=== PATIENT | male | born 1970 | race Caucasian/White ===

== ENCOUNTER 2018-04-05 15:09 | Inpatient (IN) | payer SELFPAY ==
[~2018-04-05] VITALS: Ht 177.8 cm; Wt 114.4 kg
[~2018-04-05 15:09] MED LIST: HYDR-2761 PO
[2018-04-05] MEDS ORDERED: VANCOMYCIN PER PHARMACY MC PRN (15:30)
[2018-04-05] MEDS ORDERED: IPRATRPIUM/ALBUTEROL 0.5/2.5MG 3 ML NEBU. NEB ONE (15:30)
[2018-04-05] MEDS ORDERED: PIP/TAZO PER PHARMACY MC PRN (15:30)
--- NOTE | 2018-04-05 15:30 | EKG ---
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
[2018-04-05] MEDS ORDERED: PIPERACILLIN/TAZOBACTAM 4.5 GM in IV NORMAL SALINE 100ML 100 ML IV ONE (15:45)
[2018-04-05] MEDS ORDERED: VANCOMYCIN 2 GM in IV NORMAL SALINE 500ML BAG 500 ML IV ONE (16:00)
--- NOTE | 2018-04-05 16:02 | RAD ---
PORTABLE CHEST 1V Clinical indications: Shortness of breath. COMPARISON: None available. Findings: There is a right upper lobe lung nodule. No lung consolidation or pleural effusion or pulmonary edema or pneumothorax is seen. The heart size, pulmonary vasculature, mediastinum and both samara are unremarkable. Impression: No acute radiographic abnormality is seen. Right upper lobe lung nodule. Recommend outpatient chest CT with IV contrast for further evaluation. Electronically signed by: Feng Marion MD (04/05/2018 3:57 PM) [id number]
[2018-04-05 16:05] LABS: BASO % 1 % (0-3); EOS % 1 % (0-3); LYMPH # 1.1 x10^3/uL (1.0-4.8); LYMPH % 24 % (24-48); MEAN CORPUSCULAR HEMOGLOBIN 32 pg (25-35); MEAN CORPUSCULAR HGB CONC 35 g/dL (31-37); MEAN CORPUSCULAR VOLUME 91 fL (79-100); MONO # 0.4 x10^3/uL (0.0-1.1); MONO % 10 % (0-9); NEUT # 2.9 x10^3uL (1.8-7.7); NEUT % 65 % (31-73); PLATELET COUNT 216 x10^3/uL (140-400); RED BLOOD COUNT 4.38 x10^6/uL (4.30-5.70); RED CELL DISTRIBUTION WIDTH 14.3 % (11.5-14.5); WHITE BLOOD COUNT 4.5 x10^3/uL (4.0-11.0)
--- NOTE | 2018-04-05 16:06 | PHYS DOC ---
Past Medical History Past Medical History: COPD, CVA, Hypertension, MS, Pneumonia Past Surgical History: Cholecystectomy Additional Information: 03/30 ppd Alcohol Use: None Drug Use: None Adult General Chief Complaint Chief Complaint: DYSPNEA/RESPIRATOY DISTRESS HPI HPI Patient is a 47 year old male presents the emergency room brought in by embolus with shortness of breath and coughing he was just in the hospital in [facility] for 2 weeks for pneumonia he finishes azithromycin he has been feeling worse subjective fevers at home. Shortness of breath is slowly worsening with exertion as well. Patient also has a history of a heart attack bypass surgery Review of Systems Review of Systems Constitutional: Denies fever or chills [] Eyes: Denies change in visual acuity, redness, or eye pain [] HENT: Denies nasal congestion or sore throat [] Respiratory: Denies cough or shortness of breath [] Cardiovascular: No additional information not addressed in HPI [] GI: Denies abdominal pain, nausea, vomiting, bloody stools or diarrhea [] : Denies dysuria or hematuria [] Musculoskeletal: Denies back pain or joint pain [] Integument: Denies rash or skin lesions [] Neurologic: Denies headache, focal weakness or sensory changes [] Endocrine: Denies polyuria or polydipsia [] All other systems were reviewed and found to be within normal limits, except as documented in this note. Current Medications Current Medications Current Medications Medications (Trade) Dose Ordered Sig/Narinder Start Time Stop Time Status Last Admin Dose Admin Albuterol/ Ipratropium (Duoneb) 3 ml RTQID 04/05/18 20:00 04/06/18 19:59 Furosemide (Lasix) 20 mg 1X ONCE 04/05/18 16:45 04/05/18 16:46 DC 04/05/18 16:55 20 MG Piperacillin Sod/ Tazobactam Sod (Zosyn Per Pharmacy) 1 each PRN DAILY PRN 04/05/18 15:30 Piperacillin Sod/ Tazobactam Sod 4.5 gm/Sodium Chloride 100 ml @ 200 mls/hr Q6HRS 04/06/18 00:00 Vancomycin HCl (Vanco Per Pharmacy) 1 each PRN DAILY PRN 04/05/18 15:30 04/05/18 17:10 1 EACH Vancomycin HCl (Vancomycin Trough Level) 1 each 1X ONCE 04/06/18 16:30 04/06/18 16:31 Vancomycin HCl 1.5 gm/Sodium Chloride 500 ml @ 250 mls/hr Q8H 04/06/18 01:00 Vancomycin HCl 2 gm/Sodium Chloride 500 ml @ 250 mls/hr 1X ONCE 04/05/18 16:00 04/05/18 17:59 04/05/18 16:49 250 MLS/HR Allergies Allergies Allergies Coded Allergies Type Severity Reaction Last Updated Verified No Known Drug Allergies 09/29/15 No Physical Exam Physical Exam Constitutional: Well developed, well nourished, mild distress, non-toxic appearance. [] HENT: Normocephalic, atraumatic, bilateral external ears normal, oropharynx moist, no oral exudates, nose normal. [] Eyes: PERRLA, EOMI, conjunctiva normal, no discharge. [] Neck: Normal range of motion, no tenderness, supple, no stridor. [] Cardiovascular:no dfeinite murmur difficult due to respiratory status. Lungs & Thorax: diffuse wheezing noted b/l mild t moderate increase in resp effort Abdomen: Bowel sounds normal, soft, no tenderness, no masses, no pulsatile masses. [] Skin: Erythema noted bilateral legs Back: No tenderness, no CVA tenderness. [] Extremities: No tenderness, no cyanosis, no clubbing, ROM intact,2plus edema noted. Neurologic: Alert and oriented X 3, normal motor function, normal sensory function, no focal deficits noted. [] Psychologic: Affect normal, judgement normal, mood Current Patient Data Vital Signs Vital Signs Date Time Temp Pulse Resp B/P (MAP) Pulse Ox O2 Delivery O2 Flow Rate FiO2 04/05/18 15:40 Room Air 04/05/18 15:09 98.9 102 28 142/71 (94) 98 98.9 Lab Values Laboratory Tests Test 04/05/18 15:45 04/05/18 15:50 04/05/18 16:25 White Blood Count 4.5 x10^3/uL (4.0-11.0) Red Blood Count 4.38 x10^6/uL (4.30-5.70) Hemoglobin 14.0 g/dL (13.0-17.5) Hematocrit 40.0 % (39.0-53.0) Mean Corpuscular Volume 91 fL (79-100) Mean Corpuscular Hemoglobin 32 pg (25-35) Mean Corpuscular Hemoglobin Concent 35 g/dL (31-37) Red Cell Distribution Width 14.3 % (11.5-14.5) Platelet Count 216 x10^3/uL (140-400) Neutrophils (%) (Auto) 65 % (31-73) Lymphocytes (%) (Auto) 24 % (24-48) Monocytes (%) (Auto) 10 % (0-9) H Eosinophils (%) (Auto) 1 % (0-3) Basophils (%) (Auto) 1 % (0-3) Neutrophils # (Auto) 2.9 x10^3uL (1.8-7.7) Lymphocytes # (Auto) 1.1 x10^3/uL (1.0-4.8) Monocytes # (Auto) 0.4 x10^3/uL (0.0-1.1) Eosinophils # (Auto) 0.0 x10^3/uL (0.0-0.7) Basophils # (Auto) 0.0 x10^3/uL (0.0-0.2) Prothrombin Time 13.2 SEC (11.7-14.0) Prothrombin Time INR 1.0 (0.8-1.1) Lactic Acid Level 1.5 mmol/L (0.4-2.0) Influenza Type A Antigen Negative (NEGATIVE) Influenza Type B Antigen Negative (NEGATIVE) Sodium Level 138 mmol/L (136-145) Potassium Level 4.5 mmol/L (3.5-5.1) Chloride Level 101 mmol/L (98-107) Carbon Dioxide Level 30 mmol/L (21-32) Anion Gap 7 (6-14) Blood Urea Nitrogen 4 mg/dL (8-26) L Creatinine 0.8 mg/dL (0.7-1.3) Estimated GFR (Cockcroft-Gault) 104.1 BUN/Creatinine Ratio 5 (6-20) L Glucose Level 121 mg/dL (70-99) H Calcium Level 8.9 mg/dL (8.5-10.1) Total Bilirubin 0.2 mg/dL (0.2-1.0) Aspartate Amino Transferase (AST) 55 U/L (15-37) H Alanine Aminotransferase (ALT) 77 U/L (16-63) H Alkaline Phosphatase 100 U/L (46-116) Troponin I Quantitative 0.019 ng/mL (0.000-0.055) GN-Ldi-R-Type Natriuretic Peptide 46 pg/mL (0-124) Total Protein 7.6 g/dL (6.4-8.2) Albumin 3.0 g/dL (3.4-5.0) L Albumin/Globulin Ratio 0.7 (1.0-1.7) L Laboratory Tests 04/05/18 15:45 Laboratory Tests 04/05/18 16:25 EKG EKG []nsr rate 98 no acute ischemic cahgnes noted interp by me time of [place]. Radiology/Procedures Radiology/Procedures [] Impressions: Findings: There is a right upper lobe lung nodule. No lung consolidation or pleural effusion or pulmonary edema or pneumothorax is seen. The heart size, pulmonary vasculature, mediastinum and both samara are unremarkable. Impression: No acute radiographic abnormality is seen. Right upper lobe lung nodule. Recommend outpatient chest CT with IV contrast for further evaluation. Electronically signed by: Purnima Marion MD (04/05/2018 3:57 PM) [id number] DICTATED and SIGNED BY: PURNIMA MARION MD DATE: 04/05/18 1555 Course & Med Decision Making Course & Med Decision Making Pertinent Labs and Imaging studies reviewed. (See chart for details) 47 yo m copd exacerbation hx of copd, hx of chf prior mi smoker from [place] p/w cc of shortness of breath. Has diffuse wheezing on examination we did basic workup patient did report a recent history of hospitalization as well as pneumonia and so we did give some broad-spectrum mailbox upfront chest x-ray does not show definite pneumonia however given high clinical concern be given antibiotics we gave steroids and nebulizer we gave Lasix due to leg swelling we' ll admit him to the hospital service for further evaluation his oxygen is 88-89 on room air he is not on home oxygen at baseline he is stable now on nasal cannula in the mid 90s. d/w iza agree to admit Dragon Disclaimer Dragon Disclaimer This electronic medical record was generated, in whole or in part, using a voice recognition dictation system. Departure Departure Impression: Primary Impression: COPD exacerbation Disposition: ADMITTED INPATIENT Admitting Physician: Other Condition: STABLE Referrals: NO PCP (PCP) KARTIK GRAYSON MD Apr 05, 2018 16:06
[2018-04-05 16:14] LABS: PROTHROMBIN TIME PATIENT 13.2 SEC (11.7-14.0)
[2018-04-05 16:34] LABS: INFLUENZA A PATIENT NEGATIVE (NEGATIVE); INFLUENZA B PATIENT NEGATIVE (NEGATIVE)
[2018-04-05] MEDS ORDERED: FUROSEMIDE 20 MG/2 ML VIAL. IVP ONE (16:45)
[2018-04-05 16:52] LABS: CALCIUM 8.9 mg/dL (8.5-10.1); CREATININE 0.8 mg/dL (0.7-1.3); GFR 104.1; POTASSIUM 4.5 mmol/L (3.5-5.1)
[2018-04-05 16:58] LABS: ALBUMIN/GLOBULIN RATIO 0.7 (1.0-1.7); TOTAL BILIRUBIN 0.2 mg/dL (0.2-1.0); TOTAL PROTEIN 7.6 g/dL (6.4-8.2)
--- NOTE | 2018-04-05 17:12 | NUR ---
Pharmacy Vancomycin Dosing Note S:Consulted to monitor and dose vancomycin started 04/05/18. O:RICKY LOPEZ is a 47 year old M with Pneumonia Height: 5 feet, 11 inches Weight: 104.3 kg [place] Body Weight: 75.30 Adjusted Body Weight: 86.90 Dosing Weight: Actual Other Antibiotics: zosyn per rx LABS: Last BUN: 4 Last Creatinine: 0.8 Creatinine Clearance: >100 mL/min Last WBC: 4.5 Last Platelets: 216 Tmax (past 24 hours): 98.9 Microbiology: - I/O: - Drug Levels: Last level: on at Last dose given 04/05/18 at 1649 Vancomycin Dosing: Loading Dose: 2000 mg x1 Dosing Weight: Actual Target Trough: 15-20 A: Based on: Weight and renal function P: 1. Begin Vancomycin 1500 mg IV q8h 2. Follow up Trough level on 04/06/18 at 1630 3. Pharmacy will continue to monitor, follow and adjust therapy as needed. Faina Green Yana, 04/05/18 [id number]
[2018-04-05 18:17] LABS: BARBITURATES NEG (NEG); BENZODIAZEPINES NEG (NEG); CANNABINOIDS NEG (NEG); COCAINE NEG (NEG); METHADONE NEG (NEG); OPIATES NEG (NEG); PHENCYCLIDINE NEG (NEG)
[2018-04-05 18:18] LABS: AMPHETAMINE/METHAMPHETAMINE NEG (NEG)
[2018-04-05] MEDS: IPRATRPIUM/ALBUTEROL 0.5/2.5MG 3 ML NEBU. NEB SCH ×2 (18:22→18:59)
--- NOTE | 2018-04-05 18:39 | PDOC1 ---
History and Physical Date of Admission Date of Admission 04/05/2018 Identification/Chief Complaint Chief Complaint I couldn't breathe Problems: (1) COPD exacerbation Source Source: Chart review, Patient History of Present Illness History of Present Illness The patient is a 47-year-old gentleman with past medical history of coronary artery disease tobacco abuse and COPD who was recently admitted at a different institution for pneumonia more or less 2 weeks ago. Today he comes with a history of more or less 5 days of worsening dyspnea that he started at an exertion and it has progressively gotten worse to the point that now he is experiencing dyspnea at rest. Patient also refers subjective fevers and some chills at home. Patient denies sick contacts no pleurisy has been reported cough is productive of green sputum and no hemoptysis has been reported no weight loss and no nausea vomiting associated with the coughing. The patient is an active smoker of the present time counseling has been done less than 10 minutes. Patient is being admitted the request of the ER for further treatment of his COPD exacerbation. Past Medical History Cardiovascular: CAD Current Problem List Problem List Problems Medical Problems: (1) COPD exacerbation Status: Acute Current Medications Current Medications Current Medications Medications (Trade) Dose Ordered Sig/Narinder Start Time Stop Time Status Last Admin Dose Admin Albuterol/ Ipratropium (Duoneb) 3 ml RTQID 04/05/18 20:00 04/06/18 19:59 04/05/18 18:22 3 ML Furosemide (Lasix) 20 mg 1X ONCE 04/05/18 16:45 04/05/18 16:46 DC 04/05/18 16:55 20 MG Piperacillin Sod/ Tazobactam Sod (Zosyn Per Pharmacy) 1 each PRN DAILY PRN 04/05/18 15:30 Piperacillin Sod/ Tazobactam Sod 4.5 gm/Sodium Chloride 100 ml @ 200 mls/hr Q6HRS 04/06/18 00:00 Vancomycin HCl (Vanco Per Pharmacy) 1 each PRN DAILY PRN 04/05/18 15:30 04/05/18 17:10 1 EACH Vancomycin HCl (Vancomycin Trough Level) 1 each 1X ONCE 04/06/18 16:30 04/06/18 16:31 Vancomycin HCl 1.5 gm/Sodium Chloride 500 ml @ 250 mls/hr Q8H 04/06/18 01:00 Vancomycin HCl 2 gm/Sodium Chloride 500 ml @ 250 mls/hr 1X ONCE 04/05/18 16:00 04/05/18 17:59 DC 04/05/18 16:49 250 MLS/HR Allergies Allergies Allergies Coded Allergies Type Severity Reaction Last Updated Verified No Known Drug Allergies 09/29/15 No ROS Review of System CONSTITUTIONAL: No fever or chills EYES: No recent changes SKIN: No rash or itching CARDIOVASCULAR: No chest pain, syncope, palpitations, or edema RESPIRATORY: No SOB or cough GASTROINTESTINAL: No nausea, vomiting or abdominal pain NEUROLOGICAL: No headaches or weakness ENDOCRINE: No cold or heat intolerance GENITOURINARY: No urgency or frequency of urination MUSCULOSKELETAL: No back pain or joint pain LYMPHATICS: No enlarged lymph nodes PSYCHIATRIC: No anxiety or depression Physical Exam Physical Exam GEN.: No apparent distress. Alert and oriented. HEENT: Head is normocephalic, atraumatic NECK: Supple. LUNGS: shallow inspiratory effort, expiratory wheezes bilaterally, coarse breath sounds, mild accessory respiratory muscle use. HEART: RRR, S1, S2 present. Peripheral pulses intact ABDOMEN: Soft, nontender. Positive bowel sounds. EXTREMITIES: Without any cyanosis. NEUROLOGIC: Normal speech, normal tone PSYCHIATRIC: Normal affect, normal mood. SKIN: No ulcerations Vitals Vitals Vital Signs Date Time Temp Pulse Resp B/P (MAP) Pulse Ox O2 Delivery O2 Flow Rate FiO2 04/05/18 18:23 95 Nasal Cannula 2.0 04/05/18 17:11 108 44 174/88 (116) 04/05/18 15:09 98.9 98.9 Labs Labs Laboratory Tests Test 04/05/18 15:45 04/05/18 15:50 04/05/18 16:25 04/05/18 17:49 White Blood Count 4.5 x10^3/uL (4.0-11.0) Red Blood Count 4.38 x10^6/uL (4.30-5.70) Hemoglobin 14.0 g/dL (13.0-17.5) Hematocrit 40.0 % (39.0-53.0) Mean Corpuscular Volume 91 fL (79-100) Mean Corpuscular Hemoglobin 32 pg (25-35) Mean Corpuscular Hemoglobin Concent 35 g/dL (31-37) Red Cell Distribution Width 14.3 % (11.5-14.5) Platelet Count 216 x10^3/uL (140-400) Neutrophils (%) (Auto) 65 % (31-73) Lymphocytes (%) (Auto) 24 % (24-48) Monocytes (%) (Auto) 10 % (0-9) Eosinophils (%) (Auto) 1 % (0-3) Basophils (%) (Auto) 1 % (0-3) Neutrophils # (Auto) 2.9 x10^3uL (1.8-7.7) Lymphocytes # (Auto) 1.1 x10^3/uL (1.0-4.8) Monocytes # (Auto) 0.4 x10^3/uL (0.0-1.1) Eosinophils # (Auto) 0.0 x10^3/uL (0.0-0.7) Basophils # (Auto) 0.0 x10^3/uL (0.0-0.2) Prothrombin Time 13.2 SEC (11.7-14.0) Prothromb Time International Ratio 1.0 (0.8-1.1) Lactic Acid Level 1.5 mmol/L (0.4-2.0) Influenza Type A Antigen Negative (NEGATIVE) Influenza Type B Antigen Negative (NEGATIVE) Sodium Level 138 mmol/L (136-145) Potassium Level 4.5 mmol/L (3.5-5.1) Chloride Level 101 mmol/L (98-107) Carbon Dioxide Level 30 mmol/L (21-32) Anion Gap 7 (6-14) Blood Urea Nitrogen 4 mg/dL (8-26) Creatinine 0.8 mg/dL (0.7-1.3) Estimated GFR (Cockcroft-Gault) 104.1 BUN/Creatinine Ratio 5 (6-20) Glucose Level 121 mg/dL (70-99) Calcium Level 8.9 mg/dL (8.5-10.1) Total Bilirubin 0.2 mg/dL (0.2-1.0) Aspartate Amino Transf (AST/SGOT) 55 U/L (15-37) Alanine Aminotransferase (ALT/SGPT) 77 U/L (16-63) Alkaline Phosphatase 100 U/L (46-116) Troponin I Quantitative 0.019 ng/mL (0.000-0.055) GM-Nfw-G-Type Natriuretic Peptide 46 pg/mL (0-124) Total Protein 7.6 g/dL (6.4-8.2) Albumin 3.0 g/dL (3.4-5.0) Albumin/Globulin Ratio 0.7 (1.0-1.7) Urine Opiates Screen Neg (NEG) Urine Methadone Screen Neg (NEG) Urine Barbiturates Neg (NEG) Urine Phencyclidine Screen Neg (NEG) Urine Amphetamine/Methamphetamine Neg (NEG) Urine Benzodiazepines Screen Neg (NEG) Urine Cocaine Screen Neg (NEG) Urine Cannabinoids Screen Neg (NEG) Urine Ethyl Alcohol Neg (NEG) Laboratory Tests Test 04/05/18 15:45 04/05/18 15:50 04/05/18 16:25 04/05/18 17:49 White Blood Count 4.5 x10^3/uL (4.0-11.0) Red Blood Count 4.38 x10^6/uL (4.30-5.70) Hemoglobin 14.0 g/dL (13.0-17.5) Hematocrit 40.0 % (39.0-53.0) Mean Corpuscular Volume 91 fL (79-100) Mean Corpuscular Hemoglobin 32 pg (25-35) Mean Corpuscular Hemoglobin Concent 35 g/dL (31-37) Red Cell Distribution Width 14.3 % (11.5-14.5) Platelet Count 216 x10^3/uL (140-400) Neutrophils (%) (Auto) 65 % (31-73) Lymphocytes (%) (Auto) 24 % (24-48) Monocytes (%) (Auto) 10 % (0-9) Eosinophils (%) (Auto) 1 % (0-3) Basophils (%) (Auto) 1 % (0-3) Neutrophils # (Auto) 2.9 x10^3uL (1.8-7.7) Lymphocytes # (Auto) 1.1 x10^3/uL (1.0-4.8) Monocytes # (Auto) 0.4 x10^3/uL (0.0-1.1) Eosinophils # (Auto) 0.0 x10^3/uL (0.0-0.7) Basophils # (Auto) 0.0 x10^3/uL (0.0-0.2) Prothrombin Time 13.2 SEC (11.7-14.0) Prothromb Time International Ratio 1.0 (0.8-1.1) Lactic Acid Level 1.5 mmol/L (0.4-2.0) Influenza Type A Antigen Negative (NEGATIVE) Influenza Type B Antigen Negative (NEGATIVE) Sodium Level 138 mmol/L (136-145) Potassium Level 4.5 mmol/L (3.5-5.1) Chloride Level 101 mmol/L (98-107) Carbon Dioxide Level 30 mmol/L (21-32) Anion Gap 7 (6-14) Blood Urea Nitrogen 4 mg/dL (8-26) Creatinine 0.8 mg/dL (0.7-1.3) Estimated GFR (Cockcroft-Gault) 104.1 BUN/Creatinine Ratio 5 (6-20) Glucose Level 121 mg/dL (70-99) Calcium Level 8.9 mg/dL (8.5-10.1) Total Bilirubin 0.2 mg/dL (0.2-1.0) Aspartate Amino Transf (AST/SGOT) 55 U/L (15-37) Alanine Aminotransferase (ALT/SGPT) 77 U/L (16-63) Alkaline Phosphatase 100 U/L (46-116) Troponin I Quantitative 0.019 ng/mL (0.000-0.055) WJ-Zml-X-Type Natriuretic Peptide 46 pg/mL (0-124) Total Protein 7.6 g/dL (6.4-8.2) Albumin 3.0 g/dL (3.4-5.0) Albumin/Globulin Ratio 0.7 (1.0-1.7) Urine Opiates Screen Neg (NEG) Urine Methadone Screen Neg (NEG) Urine Barbiturates Neg (NEG) Urine Phencyclidine Screen Neg (NEG) Urine Amphetamine/Methamphetamine Neg (NEG) Urine Benzodiazepines Screen Neg (NEG) Urine Cocaine Screen Neg (NEG) Urine Cannabinoids Screen Neg (NEG) Urine Ethyl Alcohol Neg (NEG) Images Images PATIENT: RICKY LOPEZ ACCOUNT: [id number] : 1970 LOCATION: ER AGE: 47 SEX: M EXAM STATUS: PRE ER ORD. PHYSICIAN: KARTIK GRAYSON MD REASON: sob PROCEDURE: PORTABLE CHEST 1V PORTABLE CHEST 1V Clinical indications: Shortness of breath. COMPARISON: None available. Findings: There is a right upper lobe lung nodule. No lung consolidation or pleural effusion or pulmonary edema or pneumothorax is seen. The heart size, pulmonary vasculature, mediastinum and both samara are unremarkable. Impression: No acute radiographic abnormality is seen. Right upper lobe lung nodule. Recommend outpatient chest CT with IV contrast for further evaluation. Electronically signed by: Purnima Marion MD (04/05/2018 3:57 PM) [id number] DICTATED and SIGNED BY: PURNIMA MARION MD DATE: 04/05/18 1555 VTE Prophylaxis Ordered VTE Prophylaxis Devices: Yes VTE Pharmacological Prophylaxi: Yes Assessment/Plan Assessment/Plan * Acute COPD exacerbation * right upper lobe lung nodule * History of CAD as per report * Tobacco abuse, counseling done less than 10 minutes. * COPD * Obesity Plan: admit to medical floor start solumedrol doxycycline po nebulization therapy resume home meds nicotine patch reassess in the am further recommendations based on clinical course. DVT prophylaxis: NENITA Torres MD Apr 05, 2018 18:39
[2018-04-05] MEDS ORDERED: ONDANSETRON PF 4 MG/2 ML VIAL. IV PRN (18:45)
[2018-04-05] MEDS ORDERED: ACETAMINOPHEN 325 MG TABLET. PO PRN (18:45)
[2018-04-05] MEDS ORDERED: ALBUTEROL SULFATE 2.5 MG/3 ML NEBU. NEB PRN (18:45)
[2018-04-05] MEDS ORDERED: KETOROLAC 15 MG/ML VIAL. IV PRN (18:45)
[2018-04-05] MEDS ORDERED: ELECTROLYTE (NON-ICU) PROTOCOL MC PRN (18:45)
[2018-04-05] MEDS ORDERED: ENOXAPARIN 40 MG/0.4 ML SYRINGE. SQ SCH (18:45)
[2018-04-05] MEDS ORDERED: LACTULOSE 20 GM/30 ML SOLUTION. PO PRN (18:45)
[2018-04-05] MEDS ORDERED: BISACODYL 10 MG SUPP.RECT. PR PRN (18:45)
--- NOTE | 2018-04-05 19:30 | NUR ---
The patient, RICKY LOPEZ, 47 y/o, M admitted by NENITA LONGO MD, was given written information regarding hospital policies, unit procedures and contact persons. Valuables were checked and left with him.
[2018-04-05 20:12] VITALS: BP 154/91
[2018-04-05] MEDS: SENNOSIDES/DOCUSATE 8.6/50MG TABLET. PO SCH (21:55)
[2018-04-05] MEDS: methylPREDNISolone SOD SUCC PF 40 MG/ML VIAL. IV SCH (21:56)
[2018-04-05 23:00] VITALS: BP 149/90
[2018-04-06] MEDS ORDERED: PIPERACILLIN/TAZOBACTAM 4.5 GM in IV NORMAL SALINE 100ML 100 ML IV SCH ×2
[2018-04-06] MEDS ORDERED: VANCOMYCIN 1.5 GM in IV NORMAL SALINE 500ML BAG 500 ML IV SCH (01:00)
[2018-04-06 03:02] VITALS: BP 140/81
[2018-04-06 03:51] LABS: BASO % 0 % (0-3); EOS % 0 % (0-3); HEMATOCRIT 44.8 % (39.0-53.0); HEMOGLOBIN 15.5 g/dL (13.0-17.5); LYMPH # 0.4 x10^3/uL (1.0-4.8); LYMPH % 9 % (24-48); MEAN CORPUSCULAR HEMOGLOBIN 32 pg (25-35); MEAN CORPUSCULAR HGB CONC 35 g/dL (31-37); MEAN CORPUSCULAR VOLUME 92 fL (79-100); MONO # 0.1 x10^3/uL (0.0-1.1); MONO % 2 % (0-9); NEUT # 4.3 x10^3uL (1.8-7.7); NEUT % 89 % (31-73); PLATELET COUNT 220 x10^3/uL (140-400); RED BLOOD COUNT 4.88 x10^6/uL (4.30-5.70); RED CELL DISTRIBUTION WIDTH 14.5 % (11.5-14.5); WHITE BLOOD COUNT 4.8 x10^3/uL (4.0-11.0)
[2018-04-06 04:33] LABS: CALCIUM 9.2 mg/dL (8.5-10.1); CREATININE 0.9 mg/dL (0.7-1.3); GFR 90.8; MAGNESIUM 2.2 mg/dL (1.8-2.4); POTASSIUM 4.6 mmol/L (3.5-5.1)
[2018-04-06] MEDS: methylPREDNISolone SOD SUCC PF 40 MG/ML VIAL. IV SCH ×3 (05:45→20:39)
[2018-04-06] MEDS: IPRATRPIUM/ALBUTEROL 0.5/2.5MG 3 ML NEBU. NEB SCH ×7 (06:10→22:00)
[2018-04-06 07:00] VITALS: BP 127/80
[2018-04-06] MEDS: DOXYCYCLINE HYCLATE 100 MG TABLET PO SCH ×2 (07:40→16:55)
[2018-04-06 07:47] LABS: % BANDS 4 % (0-9); % LYMPHS 5 % (24-48); % MONOS 3 % (0-10); % SEGS 88 % (35-66); PLT ESTIMATE ADEQUATE (ADEQUATE)
[2018-04-06] MEDS: SENNOSIDES/DOCUSATE 8.6/50MG TABLET. PO SCH ×2 (08:42→20:39)
[2018-04-06] MEDS: NICOTINE 21MG PATCH. TD SCH (08:42)
[2018-04-06] MEDS ORDERED: ONDANSETRON PF 4 MG/2 ML VIAL. IV PRN (08:45)
[2018-04-06] MEDS ORDERED: ONDANSETRON ODT 4 MG TAB.RAPDIS. PO PRN (08:45)
[2018-04-06] MEDS ORDERED: guaiFENesin DM 200MG/20MG 10 ML SYRUP PO PRN (08:45)
[2018-04-06] MEDS ORDERED: ACETAMINOPHEN 500 MG TABLET PO PRN (08:45)
[2018-04-06] MEDS ORDERED: HYDROcodone/APAP 5/325MG 1 TAB TABLET PO PRN (09:00)
[2018-04-06] MEDS ORDERED: NICOTINE 21MG PATCH. TD PRN (09:00)
--- NOTE | 2018-04-06 09:36 | NUR ---
SW following pt for anticipated dc needs. Chart reviewed. Pt lives at home alone and is self pay. Pt is currently on 2L oxygen. SW will continue to follow pt for dc needs.
--- NOTE | 2018-04-06 10:32 | PDOC ---
PROGRESS NOTES Chief Complaint Chief Complaint * Acute COPD exacerbation * right upper lobe lung nodule in a heavy smoker * History of CAD as per report * Tobacco abuse, counseling done less than 10 minutes. * COPD * Obesity History of Present Illness History of Present Illness wheezy Not on oxygen at home [id number] afford inhalers Not on any inhalers at home Chest x-ray is negative for pneumatic process but there is a right upper lung nodule which is news to him At least [id number] smoking history Plan: I did consult pulmonary given lung nodule CT chest to further evaluate that lung nodule in a heavy smoker Smoking cessation Nicotine patch Continue DuoNeb's add Robitussin Increase solu to 60 IV every 8hrs since wheezing On doxy PO by colleague - agree Not ready for DC Vitals Vitals Vital Signs Date Time Temp Pulse Resp B/P (MAP) Pulse Ox O2 Delivery O2 Flow Rate FiO2 04/06/18 08:00 Nasal Cannula 3.0 04/06/18 07:00 97.5 91 20 127/80 (96) 91 97.5 Physical Exam General: Alert, Oriented X3, Cooperative, No acute distress Heart: No murmurs Lungs: Wheezing Abdomen: Normal bowel sounds, Soft, No tenderness Extremities: No clubbing, No cyanosis, No edema Skin: No rashes, No breakdown, No significant lesion Labs LABS Laboratory Tests Test 04/05/18 15:45 04/05/18 15:50 04/05/18 16:25 04/05/18 17:49 White Blood Count 4.5 x10^3/uL (4.0-11.0) Red Blood Count 4.38 x10^6/uL (4.30-5.70) Hemoglobin 14.0 g/dL (13.0-17.5) Hematocrit 40.0 % (39.0-53.0) Mean Corpuscular Volume 91 fL (79-100) Mean Corpuscular Hemoglobin 32 pg (25-35) Mean Corpuscular Hemoglobin Concent 35 g/dL (31-37) Red Cell Distribution Width 14.3 % (11.5-14.5) Platelet Count 216 x10^3/uL (140-400) Neutrophils (%) (Auto) 65 % (31-73) Lymphocytes (%) (Auto) 24 % (24-48) Monocytes (%) (Auto) 10 % (0-9) Eosinophils (%) (Auto) 1 % (0-3) Basophils (%) (Auto) 1 % (0-3) Neutrophils # (Auto) 2.9 x10^3uL (1.8-7.7) Lymphocytes # (Auto) 1.1 x10^3/uL (1.0-4.8) Monocytes # (Auto) 0.4 x10^3/uL (0.0-1.1) Eosinophils # (Auto) 0.0 x10^3/uL (0.0-0.7) Basophils # (Auto) 0.0 x10^3/uL (0.0-0.2) Prothrombin Time 13.2 SEC (11.7-14.0) Prothromb Time International Ratio 1.0 (0.8-1.1) Lactic Acid Level 1.5 mmol/L (0.4-2.0) Influenza Type A Antigen Negative (NEGATIVE) Influenza Type B Antigen Negative (NEGATIVE) Sodium Level 138 mmol/L (136-145) Potassium Level 4.5 mmol/L (3.5-5.1) Chloride Level 101 mmol/L (98-107) Carbon Dioxide Level 30 mmol/L (21-32) Anion Gap 7 (6-14) Blood Urea Nitrogen 4 mg/dL (8-26) Creatinine 0.8 mg/dL (0.7-1.3) Estimated GFR (Cockcroft-Gault) 104.1 BUN/Creatinine Ratio 5 (6-20) Glucose Level 121 mg/dL (70-99) Calcium Level 8.9 mg/dL (8.5-10.1) Total Bilirubin 0.2 mg/dL (0.2-1.0) Aspartate Amino Transf (AST/SGOT) 55 U/L (15-37) Alanine Aminotransferase (ALT/SGPT) 77 U/L (16-63) Alkaline Phosphatase 100 U/L (46-116) Troponin I Quantitative 0.019 ng/mL (0.000-0.055) QH-Wvp-F-Type Natriuretic Peptide 46 pg/mL (0-124) Total Protein 7.6 g/dL (6.4-8.2) Albumin 3.0 g/dL (3.4-5.0) Albumin/Globulin Ratio 0.7 (1.0-1.7) Urine Opiates Screen Neg (NEG) Urine Methadone Screen Neg (NEG) Urine Barbiturates Neg (NEG) Urine Phencyclidine Screen Neg (NEG) Urine Amphetamine/Methamphetamine Neg (NEG) Urine Benzodiazepines Screen Neg (NEG) Urine Cocaine Screen Neg (NEG) Urine Cannabinoids Screen Neg (NEG) Urine Ethyl Alcohol Neg (NEG) Test 04/06/18 03:05 White Blood Count 4.8 x10^3/uL (4.0-11.0) Red Blood Count 4.88 x10^6/uL (4.30-5.70) Hemoglobin 15.5 g/dL (13.0-17.5) Hematocrit 44.8 % (39.0-53.0) Mean Corpuscular Volume 92 fL (79-100) Mean Corpuscular Hemoglobin 32 pg (25-35) Mean Corpuscular Hemoglobin Concent 35 g/dL (31-37) Red Cell Distribution Width 14.5 % (11.5-14.5) Platelet Count 220 x10^3/uL (140-400) Neutrophils (%) (Auto) 89 % (31-73) Lymphocytes (%) (Auto) 9 % (24-48) Monocytes (%) (Auto) 2 % (0-9) Eosinophils (%) (Auto) 0 % (0-3) Basophils (%) (Auto) 0 % (0-3) Neutrophils # (Auto) 4.3 x10^3uL (1.8-7.7) Lymphocytes # (Auto) 0.4 x10^3/uL (1.0-4.8) Monocytes # (Auto) 0.1 x10^3/uL (0.0-1.1) Eosinophils # (Auto) 0.0 x10^3/uL (0.0-0.7) Basophils # (Auto) 0.0 x10^3/uL (0.0-0.2) Segmented Neutrophils % 88 % (35-66) Band Neutrophils % 4 % (0-9) Lymphocytes % 5 % (24-48) Monocytes % 3 % (0-10) Platelet Estimate Adequate (ADEQUATE) Sodium Level 137 mmol/L (136-145) Potassium Level 4.6 mmol/L (3.5-5.1) Chloride Level 99 mmol/L (98-107) Carbon Dioxide Level 31 mmol/L (21-32) Anion Gap 7 (6-14) Blood Urea Nitrogen 7 mg/dL (8-26) Creatinine 0.9 mg/dL (0.7-1.3) Estimated GFR (Cockcroft-Gault) 90.8 Glucose Level 206 mg/dL (70-99) Calcium Level 9.2 mg/dL (8.5-10.1) Magnesium Level 2.2 mg/dL (1.8-2.4) Review of Systems Review of Systems wheezy, cough, SOA on long distances, no chest pain, no fever Assessment and Plan Assessmemt and Plan Problems Medical Problems: (1) COPD exacerbation Status: Acute Comment Review of Relevant I have reviewed the following items anh (where applicable) has been applied. Labs Laboratory Tests Test 04/05/18 15:45 04/05/18 15:50 04/05/18 16:25 04/05/18 17:49 White Blood Count 4.5 x10^3/uL (4.0-11.0) Red Blood Count 4.38 x10^6/uL (4.30-5.70) Hemoglobin 14.0 g/dL (13.0-17.5) Hematocrit 40.0 % (39.0-53.0) Mean Corpuscular Volume 91 fL (79-100) Mean Corpuscular Hemoglobin 32 pg (25-35) Mean Corpuscular Hemoglobin Concent 35 g/dL (31-37) Red Cell Distribution Width 14.3 % (11.5-14.5) Platelet Count 216 x10^3/uL (140-400) Neutrophils (%) (Auto) 65 % (31-73) Lymphocytes (%) (Auto) 24 % (24-48) Monocytes (%) (Auto) 10 % (0-9) Eosinophils (%) (Auto) 1 % (0-3) Basophils (%) (Auto) 1 % (0-3) Neutrophils # (Auto) 2.9 x10^3uL (1.8-7.7) Lymphocytes # (Auto) 1.1 x10^3/uL (1.0-4.8) Monocytes # (Auto) 0.4 x10^3/uL (0.0-1.1) Eosinophils # (Auto) 0.0 x10^3/uL (0.0-0.7) Basophils # (Auto) 0.0 x10^3/uL (0.0-0.2) Prothrombin Time 13.2 SEC (11.7-14.0) Prothromb Time International Ratio 1.0 (0.8-1.1) Lactic Acid Level 1.5 mmol/L (0.4-2.0) Influenza Type A Antigen Negative (NEGATIVE) Influenza Type B Antigen Negative (NEGATIVE) Sodium Level 138 mmol/L (136-145) Potassium Level 4.5 mmol/L (3.5-5.1) Chloride Level 101 mmol/L (98-107) Carbon Dioxide Level 30 mmol/L (21-32) Anion Gap 7 (6-14) Blood Urea Nitrogen 4 mg/dL (8-26) Creatinine 0.8 mg/dL (0.7-1.3) Estimated GFR (Cockcroft-Gault) 104.1 BUN/Creatinine Ratio 5 (6-20) Glucose Level 121 mg/dL (70-99) Calcium Level 8.9 mg/dL (8.5-10.1) Total Bilirubin 0.2 mg/dL (0.2-1.0) Aspartate Amino Transf (AST/SGOT) 55 U/L (15-37) Alanine Aminotransferase (ALT/SGPT) 77 U/L (16-63) Alkaline Phosphatase 100 U/L (46-116) Troponin I Quantitative 0.019 ng/mL (0.000-0.055) HE-Pxm-C-Type Natriuretic Peptide 46 pg/mL (0-124) Total Protein 7.6 g/dL (6.4-8.2) Albumin 3.0 g/dL (3.4-5.0) Albumin/Globulin Ratio 0.7 (1.0-1.7) Urine Opiates Screen Neg (NEG) Urine Methadone Screen Neg (NEG) Urine Barbiturates Neg (NEG) Urine Phencyclidine Screen Neg (NEG) Urine Amphetamine/Methamphetamine Neg (NEG) Urine Benzodiazepines Screen Neg (NEG) Urine Cocaine Screen Neg (NEG) Urine Cannabinoids Screen Neg (NEG) Urine Ethyl Alcohol Neg (NEG) Test 04/06/18 03:05 White Blood Count 4.8 x10^3/uL (4.0-11.0) Red Blood Count 4.88 x10^6/uL (4.30-5.70) Hemoglobin 15.5 g/dL (13.0-17.5) Hematocrit 44.8 % (39.0-53.0) Mean Corpuscular Volume 92 fL (79-100) Mean Corpuscular Hemoglobin 32 pg (25-35) Mean Corpuscular Hemoglobin Concent 35 g/dL (31-37) Red Cell Distribution Width 14.5 % (11.5-14.5) Platelet Count 220 x10^3/uL (140-400) Neutrophils (%) (Auto) 89 % (31-73) Lymphocytes (%) (Auto) 9 % (24-48) Monocytes (%) (Auto) 2 % (0-9) Eosinophils (%) (Auto) 0 % (0-3) Basophils (%) (Auto) 0 % (0-3) Neutrophils # (Auto) 4.3 x10^3uL (1.8-7.7) Lymphocytes # (Auto) 0.4 x10^3/uL (1.0-4.8) Monocytes # (Auto) 0.1 x10^3/uL (0.0-1.1) Eosinophils # (Auto) 0.0 x10^3/uL (0.0-0.7) Basophils # (Auto) 0.0 x10^3/uL (0.0-0.2) Segmented Neutrophils % 88 % (35-66) Band Neutrophils % 4 % (0-9) Lymphocytes % 5 % (24-48) Monocytes % 3 % (0-10) Platelet Estimate Adequate (ADEQUATE) Sodium Level 137 mmol/L (136-145) Potassium Level 4.6 mmol/L (3.5-5.1) Chloride Level 99 mmol/L (98-107) Carbon Dioxide Level 31 mmol/L (21-32) Anion Gap 7 (6-14) Blood Urea Nitrogen 7 mg/dL (8-26) Creatinine 0.9 mg/dL (0.7-1.3) Estimated GFR (Cockcroft-Gault) 90.8 Glucose Level 206 mg/dL (70-99) Calcium Level 9.2 mg/dL (8.5-10.1) Magnesium Level 2.2 mg/dL (1.8-2.4) Laboratory Tests Test 04/05/18 15:45 04/05/18 15:50 1/8/19 16:25 04/05/18 17:49 White Blood Count 4.5 x10^3/uL (4.0-11.0) Red Blood Count 4.38 x10^6/uL (4.30-5.70) Hemoglobin 14.0 g/dL (13.0-17.5) Hematocrit 40.0 % (39.0-53.0) Mean Corpuscular Volume 91 fL (79-100) Mean Corpuscular Hemoglobin 32 pg (25-35) Mean Corpuscular Hemoglobin Concent 35 g/dL (31-37) Red Cell Distribution Width 14.3 % (11.5-14.5) Platelet Count 216 x10^3/uL (140-400) Neutrophils (%) (Auto) 65 % (31-73) Lymphocytes (%) (Auto) 24 % (24-48) Monocytes (%) (Auto) 10 % (0-9) Eosinophils (%) (Auto) 1 % (0-3) Basophils (%) (Auto) 1 % (0-3) Neutrophils # (Auto) 2.9 x10^3uL (1.8-7.7) Lymphocytes # (Auto) 1.1 x10^3/uL (1.0-4.8) Monocytes # (Auto) 0.4 x10^3/uL (0.0-1.1) Eosinophils # (Auto) 0.0 x10^3/uL (0.0-0.7) Basophils # (Auto) 0.0 x10^3/uL (0.0-0.2) Prothrombin Time 13.2 SEC (11.7-14.0) Prothromb Time International Ratio 1.0 (0.8-1.1) Lactic Acid Level 1.5 mmol/L (0.4-2.0) Influenza Type A Antigen Negative (NEGATIVE) Influenza Type B Antigen Negative (NEGATIVE) Sodium Level 138 mmol/L (136-145) Potassium Level 4.5 mmol/L (3.5-5.1) Chloride Level 101 mmol/L (98-107) Carbon Dioxide Level 30 mmol/L (21-32) Anion Gap 7 (6-14) Blood Urea Nitrogen 4 mg/dL (8-26) Creatinine 0.8 mg/dL (0.7-1.3) Estimated GFR (Cockcroft-Gault) 104.1 BUN/Creatinine Ratio 5 (6-20) Glucose Level 121 mg/dL (70-99) Calcium Level 8.9 mg/dL (8.5-10.1) Total Bilirubin 0.2 mg/dL (0.2-1.0) Aspartate Amino Transf (AST/SGOT) 55 U/L (15-37) Alanine Aminotransferase (ALT/SGPT) 77 U/L (16-63) Alkaline Phosphatase 100 U/L (46-116) Troponin I Quantitative 0.019 ng/mL (0.000-0.055) MC-Unv-D-Type Natriuretic Peptide 46 pg/mL (0-124) Total Protein 7.6 g/dL (6.4-8.2) Albumin 3.0 g/dL (3.4-5.0) Albumin/Globulin Ratio 0.7 (1.0-1.7) Urine Opiates Screen Neg (NEG) Urine Methadone Screen Neg (NEG) Urine Barbiturates Neg (NEG) Urine Phencyclidine Screen Neg (NEG) Urine Amphetamine/Methamphetamine Neg (NEG) Urine Benzodiazepines Screen Neg (NEG) Urine Cocaine Screen Neg (NEG) Urine Cannabinoids Screen Neg (NEG) Urine Ethyl Alcohol Neg (NEG) Test 04/06/18 03:05 White Blood Count 4.8 x10^3/uL (4.0-11.0) Red Blood Count 4.88 x10^6/uL (4.30-5.70) Hemoglobin 15.5 g/dL (13.0-17.5) Hematocrit 44.8 % (39.0-53.0) Mean Corpuscular Volume 92 fL (79-100) Mean Corpuscular Hemoglobin 32 pg (25-35) Mean Corpuscular Hemoglobin Concent 35 g/dL (31-37) Red Cell Distribution Width 14.5 % (11.5-14.5) Platelet Count 220 x10^3/uL (140-400) Neutrophils (%) (Auto) 89 % (31-73) Lymphocytes (%) (Auto) 9 % (24-48) Monocytes (%) (Auto) 2 % (0-9) Eosinophils (%) (Auto) 0 % (0-3) Basophils (%) (Auto) 0 % (0-3) Neutrophils # (Auto) 4.3 x10^3uL (1.8-7.7) Lymphocytes # (Auto) 0.4 x10^3/uL (1.0-4.8) Monocytes # (Auto) 0.1 x10^3/uL (0.0-1.1) Eosinophils # (Auto) 0.0 x10^3/uL (0.0-0.7) Basophils # (Auto) 0.0 x10^3/uL (0.0-0.2) Segmented Neutrophils % 88 % (35-66) Band Neutrophils % 4 % (0-9) Lymphocytes % 5 % (24-48) Monocytes % 3 % (0-10) Platelet Estimate Adequate (ADEQUATE) Sodium Level 137 mmol/L (136-145) Potassium Level 4.6 mmol/L (3.5-5.1) Chloride Level 99 mmol/L (98-107) Carbon Dioxide Level 31 mmol/L (21-32) Anion Gap 7 (6-14) Blood Urea Nitrogen 7 mg/dL (8-26) Creatinine 0.9 mg/dL (0.7-1.3) Estimated GFR (Cockcroft-Gault) 90.8 Glucose Level 206 mg/dL (70-99) Calcium Level 9.2 mg/dL (8.5-10.1) Magnesium Level 2.2 mg/dL (1.8-2.4) Medications Current Medications Albuterol/ Ipratropium (Duoneb) 3 ml 1X ONCE NEB Last administered on at 15:40; Start 04/05/18 at 15:30; Stop 04/05/18 at 15:31; Status DC Vancomycin HCl (Vanco Per Pharmacy) 1 each PRN DAILY PRN MC SEE COMMENTS Last administered on 04/05/18at 17:10; Start 04/05/18 at 15:30; Stop 04/05/18 at 19:13; Status DC Piperacillin Sod/ Tazobactam Sod (Zosyn Per Pharmacy) 1 each PRN DAILY PRN MC SEE COMMENTS; Start 04/05/18 at 15:30; Stop 04/05/18 at 18:44; Status DC Piperacillin Sod/ Tazobactam Sod 4.5 gm/Sodium Chloride 100 ml @ 200 mls/hr 1X ONCE IV Last administered on 04/05/18at 16:09; Start 04/05/18 at 15:45; Stop 04/05/18 at 16:14; Status DC Vancomycin HCl 2 gm/Sodium Chloride 500 ml @ 250 mls/hr 1X ONCE IV Last administered on 04/05/18at 16:49; Start 04/05/18 at 16:00; Stop 04/05/18 at 17:59; Status DC Furosemide (Lasix) 20 mg 1X ONCE IVP Last administered on 04/05/18at 16:55; Start 04/05/18 at 16:45; Stop 04/05/18 at 16:46; Status DC Piperacillin Sod/ Tazobactam Sod 4.5 gm/Sodium Chloride 100 ml @ 200 mls/hr Q6HRS IV ; Start 04/06/18 at 00:00; Stop 04/06/18 at 00:00; Status DC Vancomycin HCl 1.5 gm/Sodium Chloride 500 ml @ 250 mls/hr Q8H IV ; Start at 01:00; Stop 04/06/18 at 01:00; Status DC Vancomycin HCl (Vancomycin Trough Level) 1 each 1X ONCE MC ; Start 04/06/18 at 16:30; Stop 04/06/18 at 16:30; Status DC Albuterol/ Ipratropium (Duoneb) 3 ml RTQID NEB Last administered on 04/05/18at 18 :22; Start 04/05/18 at 20:00; Stop 04/06/18 at 19:59 Albuterol Sulfate (Ventolin Neb Soln) 2.5 mg PRN Q2HR PRN NEB SHORTNESS OF BREATH Last administered on 04/05/18at 22:01; Start 04/05/18 at 18:45 Albuterol/ Ipratropium (Duoneb) 3 ml Q4HRS W/A NEB Last administered on 06:10; Start 04/05/18 at 22:00 Nicotine (Nicoderm Cq 21mg) 1 patch DAILY TD Last administered on 04/06/18at 08: 42; Start 04/06/18 at 09:00 Doxycycline Hyclate (Vibra-Tab) 100 mg BIDBFRMEAL PO Last administered on at 07:40; Start 04/06/18 at 07:30 Methylprednisolone Sodium Succinate (SOLU-Medrol 40MG VIAL) 40 mg Q8HRS IV Last administered on 04/06/18at 05:45; Start 04/05/18 at 22:00 Ondansetron HCl (Zofran) 4 mg PRN Q6HRS PRN IV NAUSEA/VOMITING; Start 04/05/18 at 18:45 Info (Non-Icu Electrolyte Protocol) 1 ea PRN DAILY PRN MC SEE COMMENTS; Start 04/05/18 at 18:45 Ketorolac Tromethamine (Toradol 15mg Vial) 15 mg PRN Q6HRS PRN IV PAIN Last administered on 04/06/18at 08:44; Start 04/05/18 at 18:45; Stop 04/10/18 at 18:44 Acetaminophen (Tylenol) 650 mg PRN Q6HRS PRN PO Headaches, Temp > 101.5F Last administered on 04/05/18at 23:55; Start 04/05/18 at 18:45; Stop 04/06/18 at 08:48; Status DC Senna/Docusate Sodium (Senna Plus) 1 tab BID PO Last administered on 04/06/18at 08:42; Start 04/05/18 at 21:00 Lactulose (Lactulose) 20 gm PRN Q12HR PRN PO CONSTIPATION; Start 04/05/18 at 18: 45 Bisacodyl (Dulcolax Supp) 10 mg PRN DAILY PRN SC CONSTIPATION; Start 04/05/18 at 18:45 Enoxaparin Sodium (Lovenox 40mg Syringe) 40 mg Q24H SQ Last administered on 04/05at 21:54; Start 04/05/18 at 18:45; Stop 04/06/18 at 08:47; Status DC Influenza Virus Vaccine (Afluria Trivalent [id number] Syringe) 0.5 ml ONCE ONCE VAX IM Last administered on 04/06/18at 08:45; Start 04/06/18 at 09:00; Stop at 09:01; Status DC Guaifenesin (Robitussin Dm) 10 ml PRN Q6HRS PRN PO COUGH; Start 04/06/18 at 08: 45 Acetaminophen (Tylenol) 500 mg PRN Q6HRS PRN PO MILD PAIN / TEMP; Start at 08:45 Ondansetron HCl (Zofran) 4 mg PRN Q6HRS PRN IV NAUSEA/VOMITING; Start 04/06/18 at 08:45; Stop 04/06/18 at 08:49; Status DC Ondansetron HCl (Zofran Odt) 4 mg PRN Q6HRS PRN PO NAUSEA/VOMITING; Start at 08:45 Nicotine (Nicoderm Cq 21mg) 1 patch PRN DAILY PRN TD SMOKING CESSATION; Start 04/06/18 at 09:00; Status UNV Acetaminophen/ Hydrocodone Bitart (Lortab 5/325) 2 tab PRN QID PRN PO MODERATE- SEVERE PAIN; Start 04/06/18 at 09:00 Active Scripts Active Hydrocodone-Apap 5-325 (Hydrocodone Bit/Acetaminophen) 1 Each Tablet 2 Tab PO Q4-6HRS PRN Vitals/I & O Vital Sign - Last 24 Hours 04/05/18 04/05/18 04/05/18 04/05/18 15:09 15:11 15:40 15:41 Temp 98.9 98.9 Pulse 102 104 100 Resp 28 31 30 B/P (MAP) 142/71 (94) 142/71 (94) 161/81 (107) Pulse Ox 98 93 93 O2 Delivery Room Air Room Air Room Air Room Air 04/05/18 04/05/18 04/05/18 04/05/18 16:11 16:41 17:11 17:41 Pulse 102 102 108 98 Resp 30 32 44 29 B/P (MAP) 171/81 (111) 170/80 (110) 174/88 (116) 192/90 (124) Pulse Ox 96 95 96 95 O2 Delivery Nasal Cannula Nasal Cannula Nasal Cannula Nasal Cannula O2 Flow Rate 2.0 2.0 2.0 2.0 04/05/18 04/05/18 04/05/18 04/05/18 18:11 18:23 18:41 19:11 Pulse 96 92 94 Resp 28 23 24 B/P (MAP) 192/72 (112) 117/65 (82) 121/64 (83) Pulse Ox 95 95 96 96 O2 Delivery Nasal Cannula Nasal Cannula Nasal Cannula Nasal Cannula O2 Flow Rate 2.0 2.0 2.0 2.0 04/05/18 04/05/18 04/05/18/8/19 20:12 20:25 22:01 23:00 Temp 98.1 98.3 98.1 98.3 Pulse 85 88 Resp 20 20 B/P (MAP) 154/91 (112) 149/90 (109) Pulse Ox 96 96 O2 Delivery Room Air Nasal Cannula Nasal Cannula Nasal Cannula O2 Flow Rate 2.0 2.0 04/06/18 04/06/18 04/06/18 04/06/18 03:02 06:10 07:00 08:00 Temp 98.3 97.5 98.3 97.5 Pulse 69 91 Resp 20 20 B/P (MAP) 140/81 (100) 127/80 (96) Pulse Ox 94 96 91 O2 Delivery Nasal Cannula Nasal Cannula Nasal Cannula Nasal Cannula O2 Flow Rate 2.0 3.0 3.0 Intake and Output 04/05/18 04/05/18 04/06/18 15:01 23:01 07:01 Output Total 0 ml Balance 0 ml YUNIEL PALMA MD Apr 06, 2018 10:32
[2018-04-06] MEDS ORDERED: IOHEXOL 300 MG/ML 100ML VIAL. IV ONE (10:45)
[2018-04-06 11:00] VITALS: BP 128/78
--- NOTE | 2018-04-06 11:06 | RAD ---
Examination: CT chest with IV contrast HISTORY: History of right upper lobe lung mass COMPARISON: None available TECHNIQUE: Axial CT images of chest were performed with IV contrast. Coronal and sagittal reformats are performed Exposure: One or more of the following individualized dose reduction techniques were utilized for this examination: 1. Automated exposure control 2. Adjustment of the mA and/or kV according to patient size 3. Use of iterative reconstruction technique FINDINGS: The central airways are patent. Mild cardiomegaly. The caliber of the aorta grossly appears unremarkable. Few prominent mediastinal lymph nodes identified with largest measuring 1.8 cm in the precarinal region. There is a calcified nodule identified in the right upper lobe of the lung measuring 1.4 cm. Faint patchy airspace opacities identified in the right upper lobe and the left upper lobe of the lung likely atelectasis or infiltrates. There is a 1.1 cm groundglass nodule identified in the left upper lobe of the lung, best visualized on series 2 image 23. No evidence of pleural effusion or pneumothorax. Mild degenerative changes thoracic spine the visualized liver, spleen, adrenals grossly appears unremarkable. Cystic changes identified. Mild degenerative changes thoracic spine. IMPRESSION: 1. A 1.4 cm calcified nodule identified in the right upper lobe the lung probably a granuloma. 2. There is a 1.1 cm round glass nodule identified in the left upper lobe of the lung. Close interval follow-up examination is recommended in 3 months. 3. Patchy airspace opacities identified in the right upper lobe, left upper lobe lung likely atelectasis or infiltrates. Electronically signed by: Gagandeep Mejia MD (04/06/2018 11:03 AM) [id number]
--- NOTE | 2018-04-06 14:18 | CONS ---
DATE OF CONSULTATION: PULMONARY CONSULTATION ATTENDING PHYSICIAN: Allan Bee MD REASON FOR CONSULTATION: Abnormal CT chest. HISTORY OF PRESENT ILLNESS: The patient is a 47-year-old male who has a history of coronary artery disease and history of suspected COPD from 25 years of tobacco use. He presented to the hospital complaining of shortness of breath for the last 3 days. The patient was recently admitted at a different institution for pneumonia, about 2 weeks ago. The patient had some cough. He said it was productive of yellow sputum. No chest pains. No headaches, no nausea, vomiting or diarrhea. He underwent a CT chest, which was reviewed by me. The patient had a 1.1 cm ground glass nodule in the left upper lobe. There was also 1.4 cm calcified nodule consistent with a granuloma in the right upper lobe. PAST MEDICAL HISTORY: Significant for history of ongoing tobaccoism, suspect COPD, history of CAD. PAST SURGICAL HISTORY: No recent surgeries. ALLERGIES: None. MEDICATIONS: All reviewed as listed in the MRAD including IV steroids, doxycycline and DuoNeb. REVIEW OF SYSTEMS: Twelve-point system obtained. Pertinent positives discussed in my history of present illness. SOCIAL HISTORY: Tobacco use for 25 years, half pack per day and still smokes. FAMILY HISTORY: Noncontributory to lungs. PHYSICAL EXAMINATION: VITAL SIGNS: Have been reviewed. He had subjective fever at home, but has been afebrile since hospitalization. Pulse ox 96% on 3 liters. NECK: Supple. LUNGS: Diminished breath sounds. No wheezing. CARDIOVASCULAR: Regular rate and rhythm. ABDOMEN: Soft, obese. EXTREMITIES: With no pitting edema. LABORATORY DATA: Reviewed. White cell count 4.8, hemoglobin 15.5 and platelets are 220. BUN and creatinine normal. Influenza screen is negative. IMPRESSION: 1. Dyspnea with acute hypoxic respiratory failure secondary to acute exacerbation of chronic obstructive pulmonary disease. This is a patient who has ongoing tobaccoism. 2. Abnormal CT chest with a ground glass 1.1 cm nodule in the left upper lobe, which could be inflammatory; however, the possibility of bronchoalveolar cell cancer cannot be completely ruled out and this needs to be followed up. 3. Subjective fevers at home, but has resolved while in the hospital and no definite consolidation seen on the CT chest. RECOMMENDATIONS: 1. Wean off oxygen. 2. Taper off steroids. 3. Continue DuoNebs. 4. Okay with p.o. doxycycline. 5. I have recommended to the patient that he should have a followup CT chest in 2-3 months and I have given him my business card. He will be responsible to call our office. He does not have any resources, but I did inform him that whoever he sees as a followup, he should get a CAT scan in 2-3 months. 6. The patient could be discharged in the next 24 hours if he remains afebrile. KITA BRUNO MD DR: ESTEPHANIA/joseline JOB#: [id number] / [id number]
[2018-04-06 15:00] VITALS: BP 139/71
[2018-04-06 19:00] VITALS: BP 142/74
[2018-04-06] MEDS: LACTOBACILLUS RHAMNOSUS GG 1 CAPSULE. PO SCH (20:39)
[2018-04-06 23:00] VITALS: BP 143/88
[2018-04-07 03:00] VITALS: BP 131/71
[2018-04-07 04:27] LABS: BASO % 0 % (0-3); EOS % 0 % (0-3); HEMATOCRIT 43.8 % (39.0-53.0); HEMOGLOBIN 15.2 g/dL (13.0-17.5); LYMPH # 0.8 x10^3/uL (1.0-4.8); LYMPH % 7 % (24-48); MEAN CORPUSCULAR HEMOGLOBIN 32 pg (25-35); MEAN CORPUSCULAR HGB CONC 35 g/dL (31-37); MEAN CORPUSCULAR VOLUME 91 fL (79-100); MONO # 0.4 x10^3/uL (0.0-1.1); MONO % 4 % (0-9); NEUT # 9.4 x10^3uL (1.8-7.7); NEUT % 89 % (31-73); PLATELET COUNT 272 x10^3/uL (140-400); RED CELL DISTRIBUTION WIDTH 13.8 % (11.5-14.5); WHITE BLOOD COUNT 10.6 x10^3/uL (4.0-11.0)
[2018-04-07] MEDS: methylPREDNISolone SOD SUCC PF 40 MG/ML VIAL. IV SCH (05:58)
[2018-04-07 07:00] VITALS: BP 144/92
[2018-04-07] MEDS: IPRATRPIUM/ALBUTEROL 0.5/2.5MG 3 ML NEBU. NEB SCH ×2 (07:35→11:10)
[2018-04-07] MEDS: DOXYCYCLINE HYCLATE 100 MG TABLET PO SCH (09:05)
[2018-04-07] MEDS: LACTOBACILLUS RHAMNOSUS GG 1 CAPSULE. PO SCH (09:05)
[2018-04-07] MEDS: SENNOSIDES/DOCUSATE 8.6/50MG TABLET. PO SCH (09:06)
[2018-04-07] MEDS: NICOTINE 21MG PATCH. TD SCH (09:06)
[2018-04-07] MEDS ORDERED: Nicotine 21MG TD (09:15)
[2018-04-07] MEDS ORDERED: ALBU2.5V8 NEB (09:15)
[2018-04-07] MEDS ORDERED: IPRA3AMP29 NEB (09:15)
[2018-04-07] MEDS ORDERED: DOXY100T PO (09:15)
--- NOTE | 2018-04-07 10:05 | PDOC3 ---
Discharge Summary Visit Information Date of Admission: Apr 05, 2018 Date of Discharge: Apr 07, 2018 Admitting Diagnosis Comment: * Acute COPD exacerbation * right upper lobe and BRODIE lung nodules in a heavy smoker (approx 1.4-1.6 cms) * History of CAD as per report * Tobacco abuse, counseling done less than 10 minutes. * COPD * Obesity Final Diagnosis Problems Medical Problems: (1) COPD exacerbation Status: Acute Brief Hospital Course Allergies Allergies Coded Allergies Type Severity Reaction Last Updated Verified No Known Drug Allergies 09/29/15 No Vital Signs Vital Signs Date Time Temp Pulse Resp B/P (MAP) Pulse Ox O2 Delivery O2 Flow Rate FiO2 04/07/18 07:35 97 Nasal Cannula 3.0 04/07/18 07:00 97.4 85 20 144/92 (109) 97.4 Lab Results Laboratory Tests Test 04/05/18 15:45 04/05/18 15:50 04/05/18 16:25 04/05/18 17:49 White Blood Count 4.5 x10^3/uL (4.0-11.0) Red Blood Count 4.38 x10^6/uL (4.30-5.70) Hemoglobin 14.0 g/dL (13.0-17.5) Hematocrit 40.0 % (39.0-53.0) Mean Corpuscular Volume 91 fL (79-100) Mean Corpuscular Hemoglobin 32 pg (25-35) Mean Corpuscular Hemoglobin Concent 35 g/dL (31-37) Red Cell Distribution Width 14.3 % (11.5-14.5) Platelet Count 216 x10^3/uL (140-400) Neutrophils (%) (Auto) 65 % (31-73) Lymphocytes (%) (Auto) 24 % (24-48) Monocytes (%) (Auto) 10 % (0-9) Eosinophils (%) (Auto) 1 % (0-3) Basophils (%) (Auto) 1 % (0-3) Neutrophils # (Auto) 2.9 x10^3uL (1.8-7.7) Lymphocytes # (Auto) 1.1 x10^3/uL (1.0-4.8) Monocytes # (Auto) 0.4 x10^3/uL (0.0-1.1) Eosinophils # (Auto) 0.0 x10^3/uL (0.0-0.7) Basophils # (Auto) 0.0 x10^3/uL (0.0-0.2) Prothrombin Time 13.2 SEC (11.7-14.0) Prothromb Time International Ratio 1.0 (0.8-1.1) Lactic Acid Level 1.5 mmol/L (0.4-2.0) Influenza Type A Antigen Negative (NEGATIVE) Influenza Type B Antigen Negative (NEGATIVE) Sodium Level 138 mmol/L (136-145) Potassium Level 4.5 mmol/L (3.5-5.1) Chloride Level 101 mmol/L (98-107) Carbon Dioxide Level 30 mmol/L (21-32) Anion Gap 7 (6-14) Blood Urea Nitrogen 4 mg/dL (8-26) Creatinine 0.8 mg/dL (0.7-1.3) Estimated GFR (Cockcroft-Gault) 104.1 BUN/Creatinine Ratio 5 (6-20) Glucose Level 121 mg/dL (70-99) Calcium Level 8.9 mg/dL (8.5-10.1) Total Bilirubin 0.2 mg/dL (0.2-1.0) Aspartate Amino Transf (AST/SGOT) 55 U/L (15-37) Alanine Aminotransferase (ALT/SGPT) 77 U/L (16-63) Alkaline Phosphatase 100 U/L (46-116) Troponin I Quantitative 0.019 ng/mL (0.000-0.055) JA-Wxp-I-Type Natriuretic Peptide 46 pg/mL (0-124) Total Protein 7.6 g/dL (6.4-8.2) Albumin 3.0 g/dL (3.4-5.0) Albumin/Globulin Ratio 0.7 (1.0-1.7) Urine Opiates Screen Neg (NEG) Urine Methadone Screen Neg (NEG) Urine Barbiturates Neg (NEG) Urine Phencyclidine Screen Neg (NEG) Urine Amphetamine/Methamphetamine Neg (NEG) Urine Benzodiazepines Screen Neg (NEG) Urine Cocaine Screen Neg (NEG) Urine Cannabinoids Screen Neg (NEG) Urine Ethyl Alcohol Neg (NEG) Test 04/06/18 03:05 04/07/18 03:50 White Blood Count 4.8 x10^3/uL (4.0-11.0) 10.6 x10^3/uL (4.0-11.0) Red Blood Count 4.88 x10^6/uL (4.30-5.70) 4.80 x10^6/uL (4.30-5.70) Hemoglobin 15.5 g/dL (13.0-17.5) 15.2 g/dL (13.0-17.5) Hematocrit 44.8 % (39.0-53.0) 43.8 % (39.0-53.0) Mean Corpuscular Volume 92 fL (79-100) 91 fL (79-100) Mean Corpuscular Hemoglobin 32 pg (25-35) 32 pg (25-35) Mean Corpuscular Hemoglobin Concent 35 g/dL (31-37) 35 g/dL (31-37) Red Cell Distribution Width 14.5 % (11.5-14.5) 13.8 % (11.5-14.5) Platelet Count 220 x10^3/uL (140-400) 272 x10^3/uL (140-400) Neutrophils (%) (Auto) 89 % (31-73) 89 % (31-73) Lymphocytes (%) (Auto) 9 % (24-48) 7 % (24-48) Monocytes (%) (Auto) 2 % (0-9) 4 % (0-9) Eosinophils (%) (Auto) 0 % (0-3) 0 % (0-3) Basophils (%) (Auto) 0 % (0-3) 0 % (0-3) Neutrophils # (Auto) 4.3 x10^3uL (1.8-7.7) 9.4 x10^3uL (1.8-7.7) Lymphocytes # (Auto) 0.4 x10^3/uL (1.0-4.8) 0.8 x10^3/uL (1.0-4.8) Monocytes # (Auto) 0.1 x10^3/uL (0.0-1.1) 0.4 x10^3/uL (0.0-1.1) Eosinophils # (Auto) 0.0 x10^3/uL (0.0-0.7) 0.0 x10^3/uL (0.0-0.7) Basophils # (Auto) 0.0 x10^3/uL (0.0-0.2) 0.0 x10^3/uL (0.0-0.2) Segmented Neutrophils % 88 % (35-66) Band Neutrophils % 4 % (0-9) Lymphocytes % 5 % (24-48) Monocytes % 3 % (0-10) Platelet Estimate Adequate (ADEQUATE) Sodium Level 137 mmol/L (136-145) Potassium Level 4.6 mmol/L (3.5-5.1) Chloride Level 99 mmol/L (98-107) Carbon Dioxide Level 31 mmol/L (21-32) Anion Gap 7 (6-14) Blood Urea Nitrogen 7 mg/dL (8-26) Creatinine 0.9 mg/dL (0.7-1.3) Estimated GFR (Cockcroft-Gault) 90.8 Glucose Level 206 mg/dL (70-99) Calcium Level 9.2 mg/dL (8.5-10.1) Magnesium Level 2.2 mg/dL (1.8-2.4) Laboratory Tests Test 04/07/18 03:50 White Blood Count 10.6 x10^3/uL (4.0-11.0) Red Blood Count 4.80 x10^6/uL (4.30-5.70) Hemoglobin 15.2 g/dL (13.0-17.5) Hematocrit 43.8 % (39.0-53.0) Mean Corpuscular Volume 91 fL (79-100) Mean Corpuscular Hemoglobin 32 pg (25-35) Mean Corpuscular Hemoglobin Concent 35 g/dL (31-37) Red Cell Distribution Width 13.8 % (11.5-14.5) Platelet Count 272 x10^3/uL (140-400) Neutrophils (%) (Auto) 89 % (31-73) Lymphocytes (%) (Auto) 7 % (24-48) Monocytes (%) (Auto) 4 % (0-9) Eosinophils (%) (Auto) 0 % (0-3) Basophils (%) (Auto) 0 % (0-3) Neutrophils # (Auto) 9.4 x10^3uL (1.8-7.7) Lymphocytes # (Auto) 0.8 x10^3/uL (1.0-4.8) Monocytes # (Auto) 0.4 x10^3/uL (0.0-1.1) Eosinophils # (Auto) 0.0 x10^3/uL (0.0-0.7) Basophils # (Auto) 0.0 x10^3/uL (0.0-0.2) Brief Hospital Course Mr. Romero is a 47 old male, heavy smoker admitted for COPD exacerbation with no pneumonia. Comanage with pulmonary and we're treating for acute bronchitis. The chest x-ray shows lung nodule in this heavy smoker hence we followed up with a CAT scan and shows around 1.4-1.6 right upper lobe and left upper lobe lung nodules. Recommend 2-[address] chest and I provided Rx He is self-pay, I provided [facility] Rx on chart which includes prednisone taper for a total of 12 days, by mouth antibiotic, DuoNeb he has a nebulizer at home, and the prescription for repeat interval chest CT in 2-3 months Consults performed pulmonary Procedures performed Time spent discharging coordination and education of what to do in 2-3 months, 31 minutes cumulative Discharge Information Condition at Discharge: Improved, Stable Follow Up: Weeks (2-[address] chest) Disposition/Orders: D/C to Home Scheduled Doxycycline Hyclate (Doxycycline Hyclate) 100 Mg Tablet, 100 MG PO BIDBFRMEAL for pna, uri MDD 1, #14 Prescribed by: YUNIEL PALMA on 04/07/18914 Ipratropium/Albuterol Sulfate (Duoneb 0.5-3(2.5) Mg/3 Ml) 3 Ml Ampul.neb, 3 ML NEB Q4HRS W/A for soa MDD 1, #30 Prescribed by: YUNIEL PALMA on 04/07/18914 [Nicotine 21MG] 1 PATCH PATCH, 1 PATCH TD DAILY for smoking cessation MDD 1, #10 Prescribed by: YUNIEL PALMA on 04/07/18914 Scheduled PRN Albuterol Sulfate (Proair Hfa) 8.5 Gm Hfa.aer.ad, 2.5 MG NEB PRN Q2HR PRN for SHORTNESS OF BREATH MDD 1, #1 Prescribed by: YUNIEL PALMA on 04/07/18914 Hydrocodone Bit/Acetaminophen (Hydrocodone-Apap 5-325 ) 1 Each Tablet, 2 TAB PO Q4-6HRS PRN for PAIN, #30 Ref 0 Prescribed by: FAZAL BETANCOURT MD on 09/29/15 0742 Last Action: Continued on 04/06/18 0847 by YUNIEL ARAUJO MD Apr 07, 2018 10:05
--- NOTE | 2018-04-07 10:46 | PDOC ---
PULMONARY PROGRESS NOTES Subjective NO SOA Vitals Vital Signs Date Time Temp Pulse Resp B/P (MAP) Pulse Ox O2 Delivery O2 Flow Rate FiO2 04/07/18 07:35 97 Nasal Cannula 3.0 04/07/18 07:00 97.4 85 20 144/92 (109) 97.4 General: Alert, No acute distress Lungs: Clear Cardiovascular: S1 Abdomen: Soft Neuro Exam: Alert Extremities: No Edema Skin: Warm Labs Laboratory Tests Test 04/05/18 15:45 04/05/18 15:50 04/05/18 16:25 04/05/18 17:49 White Blood Count 4.5 x10^3/uL (4.0-11.0) Red Blood Count 4.38 x10^6/uL (4.30-5.70) Hemoglobin 14.0 g/dL (13.0-17.5) Hematocrit 40.0 % (39.0-53.0) Mean Corpuscular Volume 91 fL (79-100) Mean Corpuscular Hemoglobin 32 pg (25-35) Mean Corpuscular Hemoglobin Concent 35 g/dL (31-37) Red Cell Distribution Width 14.3 % (11.5-14.5) Platelet Count 216 x10^3/uL (140-400) Neutrophils (%) (Auto) 65 % (31-73) Lymphocytes (%) (Auto) 24 % (24-48) Monocytes (%) (Auto) 10 % (0-9) Eosinophils (%) (Auto) 1 % (0-3) Basophils (%) (Auto) 1 % (0-3) Neutrophils # (Auto) 2.9 x10^3uL (1.8-7.7) Lymphocytes # (Auto) 1.1 x10^3/uL (1.0-4.8) Monocytes # (Auto) 0.4 x10^3/uL (0.0-1.1) Eosinophils # (Auto) 0.0 x10^3/uL (0.0-0.7) Basophils # (Auto) 0.0 x10^3/uL (0.0-0.2) Prothrombin Time 13.2 SEC (11.7-14.0) Prothromb Time International Ratio 1.0 (0.8-1.1) Lactic Acid Level 1.5 mmol/L (0.4-2.0) Influenza Type A Antigen Negative (NEGATIVE) Influenza Type B Antigen Negative (NEGATIVE) Sodium Level 138 mmol/L (136-145) Potassium Level 4.5 mmol/L (3.5-5.1) Chloride Level 101 mmol/L (98-107) Carbon Dioxide Level 30 mmol/L (21-32) Anion Gap 7 (6-14) Blood Urea Nitrogen 4 mg/dL (8-26) Creatinine 0.8 mg/dL (0.7-1.3) Estimated GFR (Cockcroft-Gault) 104.1 BUN/Creatinine Ratio 5 (6-20) Glucose Level 121 mg/dL (70-99) Calcium Level 8.9 mg/dL (8.5-10.1) Total Bilirubin 0.2 mg/dL (0.2-1.0) Aspartate Amino Transf (AST/SGOT) 55 U/L (15-37) Alanine Aminotransferase (ALT/SGPT) 77 U/L (16-63) Alkaline Phosphatase 100 U/L (46-116) Troponin I Quantitative 0.019 ng/mL (0.000-0.055) KD-Yqx-C-Type Natriuretic Peptide 46 pg/mL (0-124) Total Protein 7.6 g/dL (6.4-8.2) Albumin 3.0 g/dL (3.4-5.0) Albumin/Globulin Ratio 0.7 (1.0-1.7) Urine Opiates Screen Neg (NEG) Urine Methadone Screen Neg (NEG) Urine Barbiturates Neg (NEG) Urine Phencyclidine Screen Neg (NEG) Urine Amphetamine/Methamphetamine Neg (NEG) Urine Benzodiazepines Screen Neg (NEG) Urine Cocaine Screen Neg (NEG) Urine Cannabinoids Screen Neg (NEG) Urine Ethyl Alcohol Neg (NEG) Test 04/06/18 03:05 04/07/18 03:50 White Blood Count 4.8 x10^3/uL (4.0-11.0) 10.6 x10^3/uL (4.0-11.0) Red Blood Count 4.88 x10^6/uL (4.30-5.70) 4.80 x10^6/uL (4.30-5.70) Hemoglobin 15.5 g/dL (13.0-17.5) 15.2 g/dL (13.0-17.5) Hematocrit 44.8 % (39.0-53.0) 43.8 % (39.0-53.0) Mean Corpuscular Volume 92 fL (79-100) 91 fL (79-100) Mean Corpuscular Hemoglobin 32 pg (25-35) 32 pg (25-35) Mean Corpuscular Hemoglobin Concent 35 g/dL (31-37) 35 g/dL (31-37) Red Cell Distribution Width 14.5 % (11.5-14.5) 13.8 % (11.5-14.5) Platelet Count 220 x10^3/uL (140-400) 272 x10^3/uL (140-400) Neutrophils (%) (Auto) 89 % (31-73) 89 % (31-73) Lymphocytes (%) (Auto) 9 % (24-48) 7 % (24-48) Monocytes (%) (Auto) 2 % (0-9) 4 % (0-9) Eosinophils (%) (Auto) 0 % (0-3) 0 % (0-3) Basophils (%) (Auto) 0 % (0-3) 0 % (0-3) Neutrophils # (Auto) 4.3 x10^3uL (1.8-7.7) 9.4 x10^3uL (1.8-7.7) Lymphocytes # (Auto) 0.4 x10^3/uL (1.0-4.8) 0.8 x10^3/uL (1.0-4.8) Monocytes # (Auto) 0.1 x10^3/uL (0.0-1.1) 0.4 x10^3/uL (0.0-1.1) Eosinophils # (Auto) 0.0 x10^3/uL (0.0-0.7) 0.0 x10^3/uL (0.0-0.7) Basophils # (Auto) 0.0 x10^3/uL (0.0-0.2) 0.0 x10^3/uL (0.0-0.2) Segmented Neutrophils % 88 % (35-66) Band Neutrophils % 4 % (0-9) Lymphocytes % 5 % (24-48) Monocytes % 3 % (0-10) Platelet Estimate Adequate (ADEQUATE) Sodium Level 137 mmol/L (136-145) Potassium Level 4.6 mmol/L (3.5-5.1) Chloride Level 99 mmol/L (98-107) Carbon Dioxide Level 31 mmol/L (21-32) Anion Gap 7 (6-14) Blood Urea Nitrogen 7 mg/dL (8-26) Creatinine 0.9 mg/dL (0.7-1.3) Estimated GFR (Cockcroft-Gault) 90.8 Glucose Level 206 mg/dL (70-99) Calcium Level 9.2 mg/dL (8.5-10.1) Magnesium Level 2.2 mg/dL (1.8-2.4) Laboratory Tests Test 04/07/18 03:50 White Blood Count 10.6 x10^3/uL (4.0-11.0) Red Blood Count 4.80 x10^6/uL (4.30-5.70) Hemoglobin 15.2 g/dL (13.0-17.5) Hematocrit 43.8 % (39.0-53.0) Mean Corpuscular Volume 91 fL (79-100) Mean Corpuscular Hemoglobin 32 pg (25-35) Mean Corpuscular Hemoglobin Concent 35 g/dL (31-37) Red Cell Distribution Width 13.8 % (11.5-14.5) Platelet Count 272 x10^3/uL (140-400) Neutrophils (%) (Auto) 89 % (31-73) Lymphocytes (%) (Auto) 7 % (24-48) Monocytes (%) (Auto) 4 % (0-9) Eosinophils (%) (Auto) 0 % (0-3) Basophils (%) (Auto) 0 % (0-3) Neutrophils # (Auto) 9.4 x10^3uL (1.8-7.7) Lymphocytes # (Auto) 0.8 x10^3/uL (1.0-4.8) Monocytes # (Auto) 0.4 x10^3/uL (0.0-1.1) Eosinophils # (Auto) 0.0 x10^3/uL (0.0-0.7) Basophils # (Auto) 0.0 x10^3/uL (0.0-0.2) Medications Active Scripts Medications Dose Route/Sig Max Daily Dose Days Date Category Duoneb 0.5-3(2.5) Mg/3 Ml (Albuterol/Ipratropium) 3 Ml Ampul.neb 3 Ml NEB Q4HRS W/A MDD 1 04/07/18 Rx Proair Hfa (Albuterol Sulfate) 8.5 Gm Hfa.aer.ad 2.5 Mg NEB PRN Q2HR PRN MDD 1 04/07/18 Rx [Nicotine 21MG] 1 PATCH Patch 1 Patch TD DAILY MDD 1 04/07/18 Rx Doxycycline Hyclate 100 Mg Tablet 100 Mg PO BIDBFRMEAL MDD 1 04/07/18 Rx Hydrocodone-Apap 5-325 (Hydrocodone Bit/Acetaminophen) 1 Each Tablet 2 Tab PO Q4-6HRS PRN 09/29/15 Rx Impression . 1. Dyspnea with acute hypoxic respiratory failure secondary to acute exacerbation of chronic obstructive pulmonary disease. This is a patient who has ongoing tobaccoism. RESOLVED 2. Abnormal CT chest with a ground glass 1.1 cm nodule in the left upper lobe, which could be inflammatory; however, the possibility of bronchoalveolar cell cancer cannot be completely ruled out and this needs to be followed up. 3. Subjective fevers at home, but has resolved while in the hospital and no definite consolidation seen on the CT chest. Plan . 1. off oxygen. 2. Taper off steroids. 3. Continue DuoNebs. 4. Okay with p.o. doxycycline. 5. I have recommended to the patient that he should have a followup CT chest in 2-3 months and I have given him my business card. He will be responsible to call our office. He does not have any resources, but I did inform him that whoever he sees as a followup, he should get a CAT scan in 2-3 months. 6. The patient could be discharged TODAY/ NO FEVER KITA BRUNO MD Apr 07, 2018 10:46
[2018-04-07 11:34] VITALS: BP 142/85
--- NOTE | 2018-04-07 12:48 | NUR ---
Discharge teaching provided written and verbal to pt,understanding verbalized. Dismissed to home with all belongings accompanied by his friend. Transported to exit per w/c at 1247.
== END 2018-04-07 12:51 | disposition home or self-care (01) | DRG 189 ==
LOC: ER 15:09 → 5 NORTH 16:30
PROVIDERS: ADMIT Internal Medicine; ATTEND Internal Medicine
DX: J96.01 Acute respiratory failure with hypoxia (principal); J44.0 Chronic obstructive pulmonary disease with (acute) lower respiratory infection; J44.1 Chronic obstructive pulmonary disease with (acute) exacerbation; E66.9 Obesity, unspecified; F17.200 Nicotine dependence, unspecified, uncomplicated; I10 Essential (primary) hypertension; I25.10 Atherosclerotic heart disease of native coronary artery without angina pectoris; I25.2 Old myocardial infarction; J20.9 Acute bronchitis, unspecified; Z86.73 Personal history of transient ischemic attack (TIA), and cerebral infarction without residual deficits; Z68.36 Body mass index [BMI] 36.0-36.9, adult; Z90.49 Acquired absence of other specified parts of digestive tract; Z87.01 Personal history of pneumonia (recurrent); Z71.6 Tobacco abuse counseling
CPT/HCPCS: 36415; 71045; 71260; 80048; 80053; 80307; 83605; 83735; 83880; 84484; 85007; 85025; 85610; 87040; 87804; 90471; 90756; 93005; 94640; 94760; 96365; 96367; 96375; J1650; J1885; J1940; J2543; J2920; J3370; J7040; J7613; J7620; Q9967; 99285-25; Q2035

== ENCOUNTER 2018-09-16 12:53 | Observation (INO) | payer SELFPAY ==
[~2018-09-16] VITALS: Ht 177.8 cm; Wt 111.1 kg
[~2018-09-16 12:53] MED LIST changes: +ALBU2.5V8 NEB; +DOXY100T PO; +IPRA3AMP29 NEB; +Nicotine 21MG TD
--- NOTE | 2018-09-16 13:28 | PHYS DOC ---
Past Medical History Past Medical History: COPD, CVA, Hypertension, ND, Pneumonia Past Surgical History: Cholecystectomy Alcohol Use: None Drug Use: None Adult General Chief Complaint Chief Complaint: LOWER EXTREMITY SWELLING and soa HPI HPI 48-year-old male presenting to the emergency department today with 2 primary co mplaints. His primary complaint is having bilateral leg swelling with redness over the past few days. His second complaint is that he is short of breath. He reports sitting in a recliner more often and having orthopnea with laying back. He is never been diagnosed with CHF. He has a long-standing history of COPD. He denies any fevers but does have pain in the legs that is sharp shooting nonradiating pain. Review of systems is negative for abdominal pain vomiting fevers chills. All other review of systems is negative. ED course: 48-year-old male presenting with shortness of breath and bilateral leg swelling left more than the right with redness of the legs without fevers. On arrival he is tachycardic afebrile mildly increased respiratory rate. O2 sat is at 93% originally. Blood pressure elevated 150s systolic. cbc wnl. bmp is wnl. trop neg. Mild bibasilar infiltrates on xray. we gave pt the neb here along with oral lasix and iv solumedrol. IV Rocephin for infiltrates and possible cellulitis. we will admit to [facility] for further tx and care. Current Medications Current Medications Current Medications Medications (Trade) Dose Ordered Sig/Narinder Start Time Stop Time Status Last Admin Dose Admin Albuterol/ Ipratropium (Duoneb) 3 ml 1X ONCE 09/16/18 13:30 09/16/18 13:31 DC 09/16/18 14:34 3 ML Ceftriaxone Sodium (Rocephin) 1 gm 1X ONCE 09/16/18 14:30 09/16/18 14:31 DC 09/16/18 15:07 1 GM Furosemide (Lasix) 20 mg 1X ONCE 09/16/18 14:30 09/16/18 14:31 DC 09/16/18 15:05 20 MG Methylprednisolone Sodium Succinate (SOLU-Medrol 125MG VIAL) 125 mg 1X ONCE 09/16/18 14:30 09/16/18 14:31 DC 09/16/18 15:07 125 MG Morphine Sulfate (Morphine Sulfate) 2 mg PRN Q2HR PRN 09/16/18 14:30 09/17/18 14:29 09/16/18 15:08 2 MG Ondansetron HCl (Zofran) 4 mg PRN Q8HRS PRN 09/16/18 14:30 09/17/18 14:29 09/16/18 15:05 4 MG Allergies Allergies Allergies Coded Allergies Type Severity Reaction Last Updated Verified No Known Drug Allergies 09/29/15 No Physical Exam Physical Exam Constitutional: Well developed, well nourished, no acute distress, non-toxic appearance. [] HENT: Normocephalic, atraumatic, bilateral external ears normal, oropharynx [address], no oral exudates, nose normal. [] Eyes: PERRLA, EOMI, conjunctiva normal, no discharge. [] Neck: Normal range of motion, no tenderness, supple, no stridor. [] Cardiovascular:Heart rate regular rhythm, no murmur [] Lungs & Thorax: Wheezing bilaterally with crackles at the bases. Abdomen: Bowel sounds normal, soft, no tenderness, no masses, no pulsatile masses. [] Skin: Warm, dry, no erythema, no rash. [] Back: No tenderness, no CVA tenderness. [] Extremities: Bilateral erythema present on the left than the right lower extremity. Left is more warm to touch than the right. 3+ edema. Neurologic: Alert and oriented X 3, normal motor function, normal sensory function, no focal deficits noted. [] Psychologic: Affect normal, judgement normal, mood normal. [] Current Patient Data Vital Signs Vital Signs Date Time Temp Pulse Resp B/P (MAP) Pulse Ox O2 Delivery O2 Flow Rate FiO2 09/16/18 15:08 18 94 2.0 09/16/18 14:35 Nasal Cannula 09/16/18 13:09 107 155/90 (111) 09/16/18 13:06 98.2 98.2 Lab Values Laboratory Tests Test 09/16/18 13:30 White Blood Count 10.9 x10^3/uL (4.0-11.0) Red Blood Count 4.57 x10^6/uL (4.30-5.70) Hemoglobin 13.8 g/dL (13.0-17.5) Hematocrit 41.2 % (39.0-53.0) Mean Corpuscular Volume 90 fL (79-100) Mean Corpuscular Hemoglobin 30 pg (25-35) Mean Corpuscular Hemoglobin Concent 34 g/dL (31-37) Red Cell Distribution Width 14.1 % (11.5-14.5) Platelet Count 252 x10^3/uL (140-400) Neutrophils (%) (Auto) 76 % (31-73) H Lymphocytes (%) (Auto) 15 % (24-48) L Monocytes (%) (Auto) 6 % (0-9) Eosinophils (%) (Auto) 3 % (0-3) Basophils (%) (Auto) 0 % (0-3) Neutrophils # (Auto) 8.2 x10^3uL (1.8-7.7) H Lymphocytes # (Auto) 1.6 x10^3/uL (1.0-4.8) Monocytes # (Auto) 0.7 x10^3/uL (0.0-1.1) Eosinophils # (Auto) 0.3 x10^3/uL (0.0-0.7) Basophils # (Auto) 0.0 x10^3/uL (0.0-0.2) Sodium Level 140 mmol/L (136-145) Potassium Level 3.9 mmol/L (3.5-5.1) Chloride Level 103 mmol/L (98-107) Carbon Dioxide Level 31 mmol/L (21-32) Anion Gap 6 (6-14) Blood Urea Nitrogen 11 mg/dL (8-26) Creatinine 0.6 mg/dL (0.7-1.3) L Estimated GFR (Cockcroft-Gault) 144.4 Glucose Level 157 mg/dL (70-99) H Calcium Level 8.5 mg/dL (8.5-10.1) Total Bilirubin 0.1 mg/dL (0.2-1.0) L Direct Bilirubin < 0.1 mg/dL (0.0-0.2) Aspartate Amino Transferase (AST) 42 U/L (15-37) H Alanine Aminotransferase (ALT) 59 U/L (16-63) Alkaline Phosphatase 104 U/L (46-116) Troponin I Quantitative < 0.017 ng/mL (0.000-0.055) BG-Peu-P-Type Natriuretic Peptide 50 pg/mL (0-124) Total Protein 7.4 g/dL (6.4-8.2) Albumin 3.4 g/dL (3.4-5.0) Lipase 63 U/L (73-393) L Laboratory Tests 09/16/18 13:30 Laboratory Tests 09/16/18 13:30 EKG EKG [] Radiology/Procedures Radiology/Procedures [] Course & Med Decision Making Course & Med Decision Making Pertinent Labs and Imaging studies reviewed. (See chart for details) [] Dragon Disclaimer Dragon Disclaimer This electronic medical record was generated, in whole or in part, using a voice recognition dictation system. Departure Departure Impression: Primary Impression: Cellulitis Additional Impressions: Bilateral pulmonary infiltrates on chest x-ray COPD exacerbation Pedal edema Disposition: ADMITTED INPATIENT Admitting Physician: LOIDA Condition: STABLE Referrals: NO PCP (PCP) Problem Qualifiers ASHISH PERRY MD Sep 16, 2018 13:28
[2018-09-16] MEDS ORDERED: IPRATRPIUM/ALBUTEROL 0.5/2.5MG 3 ML NEBU. NEB ONE (13:30)
[2018-09-16 13:41] LABS: BASO % 0 % (0-3); EOS # 0.3 x10^3/uL (0.0-0.7); EOS % 3 % (0-3); HEMATOCRIT 41.2 % (39.0-53.0); HEMOGLOBIN 13.8 g/dL (13.0-17.5); LYMPH # 1.6 x10^3/uL (1.0-4.8); LYMPH % 15 % (24-48); MEAN CORPUSCULAR HEMOGLOBIN 30 pg (25-35); MEAN CORPUSCULAR HGB CONC 34 g/dL (31-37); MEAN CORPUSCULAR VOLUME 90 fL (79-100); MONO # 0.7 x10^3/uL (0.0-1.1); MONO % 6 % (0-9); NEUT # 8.2 x10^3uL (1.8-7.7); NEUT % 76 % (31-73); PLATELET COUNT 252 x10^3/uL (140-400); RED BLOOD COUNT 4.57 x10^6/uL (4.30-5.70); RED CELL DISTRIBUTION WIDTH 14.1 % (11.5-14.5); WHITE BLOOD COUNT 10.9 x10^3/uL (4.0-11.0)
--- NOTE | 2018-09-16 13:55 | RAD ---
CHEST AP ONLY History: Shortness of breath for 5 days. Lower extremity swelling. FINDINGS: Comparison with April 05, 2018. Cardiomediastinal silhouette are thought to be stable. Heart size upper limits normal in width but that may be accentuated by portable technique. The previously seen right upper lobe nodule appears stable on radiographs. There are mild markings in left lung base which is not seen previously, compatible with mild infiltrate or atelectasis. There also milder right lung base markings. No evidence of pneumothorax. No evidence of pleural effusion. Bones appear intact. IMPRESSION: 1. Mild bibasilar infiltrates/atelectasis. 2. Radiographically stable right upper lobe nodule, but CT chest would provide better follow-up exam. Electronically signed by: Willian Garrido MD (09/16/2018 1:52 PM) [id number]
[2018-09-16 13:56] LABS: ANION GAP 6 (6-14); BLOOD UREA NITROGEN 11 mg/dL (8-26); CALCIUM 8.5 mg/dL (8.5-10.1); CARBON DIOXIDE 31 mmol/L (21-32); CHLORIDE 103 mmol/L (98-107); CREATININE 0.6 mg/dL (0.7-1.3); GFR 144.4; GLUCOSE 157 mg/dL (70-99); POTASSIUM 3.9 mmol/L (3.5-5.1); SODIUM 140 mmol/L (136-145)
[2018-09-16 14:02] LABS: ALBUMIN 3.4 g/dL (3.4-5.0); ALK PHOS 104 U/L (46-116); ALT (SGPT) 59 U/L (16-63); AST (SGOT) 42 U/L (15-37); DIRECT BILIRUBIN < 0.1 mg/dL (0.0-0.2); LIPASE 63 U/L (73-393); TOTAL BILIRUBIN 0.1 mg/dL (0.2-1.0); TOTAL PROTEIN 7.4 g/dL (6.4-8.2)
[2018-09-16] MEDS ORDERED: ONDANSETRON PF 4 MG/2 ML VIAL. IV PRN (14:30)
[2018-09-16] MEDS ORDERED: MORPHINE SULFATE 2 MG/ML VIAL. IV PRN (14:30)
[2018-09-16] MEDS ORDERED: methylPREDNISolone SOD SUCC PF 125 MG/2 ML VIAL. IV ONE (14:30)
[2018-09-16] MEDS ORDERED: cefTRIAXone IV Push 1 GM VIAL. IVP ONE (14:30)
[2018-09-16] MEDS ORDERED: FUROSEMIDE 40 MG TABLET. PO ONE (14:30)
--- NOTE | 2018-09-16 15:20 | EKG ---
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
[2018-09-16 19:00] VITALS: BP 174/95
[2018-09-16] MEDS ORDERED: ZOLPIDEM 5 MG TABLET. PO PRN (21:45)
[2018-09-16] MEDS ORDERED: NICOTINE POLACRILEX 2MG GUM PACKAGE of 12. BC PRN (21:45)
[2018-09-16] MEDS ORDERED: NICOTINE 21MG PATCH. TD PRN (21:45)
--- NOTE | 2018-09-16 21:51 | PDOC1 ---
History and Physical Date of Admission Date of Admission DATE: 09/16/18 TIME: 21:45 Identification/Chief Complaint Chief Complaint short of breath Source Source: Chart review, Patient History of Present Illness History of Present Illness MR. Romero is a 48-year-old male admit with dyspnea cough and leg swelling with pain and redness. The bilateral leg swelling with redness had worsened over the past few days, but he reports better already from interventions done in the ER. He has new LE edema, and cannot lie flat and has new trouble breathing, no pain, buit cough, and he reports hx COPD and is using his Albuterol inhaler a lot. Past Medical History Cardiovascular: CAD Pulmonary: COPD Endocrine: No pertinent hx Dermatology: No pertinent hx Past Surgical History Past Surgical History: No pertinent history Social History Smoke: 1 pack per day ALCOHOL: rare Drugs: None Current Problem List Problem List Problems Medical Problems: (1) Bilateral pulmonary infiltrates on chest x-ray Status: Acute (2) Cellulitis Status: Acute (3) COPD exacerbation Status: Acute (4) Pedal edema Status: Acute Current Medications Current Medications Current Medications Albuterol/ Ipratropium (Duoneb) 3 ml 1X ONCE NEB Last administered on 09/16/18at 14:34; Start 09/16/18 at 13:30; Stop 09/16/18 at 13:31; Status DC Methylprednisolone Sodium Succinate (SOLU-Medrol 125MG VIAL) 125 mg 1X ONCE IV Last administered on 09/16/18at 15:07; Start 09/16/18 at 14:30; Stop 09/16/18 at 14:31; Status DC Ceftriaxone Sodium (Rocephin) 1 gm 1X ONCE IVP Last administered on 09/16/18at 15:07; Start 09/16/18 at 14:30; Stop 09/16/18 at 14:31; Status DC Furosemide (Lasix) 20 mg 1X ONCE PO Last administered on 09/16/18at 15:05; Start 09/16/18 at 14:30; Stop 09/16/18 at 14:31; Status DC Ondansetron HCl (Zofran) 4 mg PRN Q8HRS PRN IV NAUSEA/VOMITING Last administered on 09/16/18at 15:05; Start 09/16/18 at 14:30; Stop 09/17/18 at 14:29 Morphine Sulfate (Morphine Sulfate) 2 mg PRN Q2HR PRN IV PAIN Last administered on 09/16/18at 15:08; Start 09/16/18 at 14:30; Stop 09/17/18 at 14:29 Active Scripts Active Allergies Allergies: Coded Allergies: No Known Drug Allergies (Unverified , 09/29/15) ROS General: YES: Chills, Fatigue PSYCHOLOGICAL ROS: YES: Sleep disturbances; No: Anxiety, Behavioral Disorder, Concentration difficultie, Decreased libido, Depression, Disorientation, Hallucinations, Hostility, Irritablity, Memory difficulties, Mood Swings, Obsessive thoughts, Physical abuse, Sexual abuse, Suicidal ideation, Other Eyes: No Blurry vision, No Decreased vision, No Double vision, No Dry eyes, No Excessive tearing, No Eye Pain, No Itchy Eyes, No Loss of vision, No Photophobia, No Scotomata, No Uses contacts, No Uses glasses, No Other ENDOCRINE: No: Breast Changes, Galactorrhea, Hair Pattern Changes, Hot Flashes, Malaise/lethargy, Mood Swings, Palpitations, Polydipsia/polyuria, Skin Changes, Temperature Intolerance, Unexpected Weight Changes, Other Respiratory: YES: Cough, SOB with excertion, Tachypnea; No: Hemoptysis, Orthopnea, Pleuritic Pain, Shortness of breath, Stridor, Wheezing, Other Cardiovascular: No Chest Pain, No Palpitations, No Orthopnea, No Paroxysmal Noc. Dyspnea, No Edema, No Lt Headedness, No Other Gastrointestinal: No Nausea, No Vomiting, No Abdominal Pain, No Diarrhea, No Constipation, No Melena, No Hematochezia, No Other Genitourinary: No Dysuria, No Frequency, No Incontinence, No Hematuria, No Retention, No Discharge, No Urgency, No Pain, No Flank Pain, No Other, No , No , No , No , No , No , No Musculoskeletal: Yes Pain In: (legs and feet); No Gait Disturbance, No Joint Pain, No Joint Stiffness, No Joint Swelling, No Muscle Pain, No Muscular Weakness, No Swelling In:, No Other Neurological: No Behavorial Changes, No Bowel/Bladder ControlChng, No Confusion, No Dizziness, No Gait Disturbance, No Headaches, No Impaired Coord/balance, No Memory Loss, No Numbness/Tingling, No Seizures, No Speech Problems, No Tremors, No Visual Changes, No Weakness, No Other Skin: Yes Dry Skin, Yes Rash, Yes Skin Lesion Changes Physical Exam General: Alert, Cooperative, mild distress HEENT: Atraumatic, EOMI, Mucous membr. moist/pink Lungs: Other (limited vol, end rales, no wheeze, ) Heart: S1S2, no murmurs Breasts: Rt breast nml w/o mass Abdomen: Normal bowel sounds, Soft (obese) Extremities: No cyanosis, Normal pulses Skin: No breakdown, Other (erythema to bilat shins, tender, blanchable, ) Neuro: Normal tone, Sensation intact Psych/Mental Status: Mood NL Vitals Vitals Vital Signs Date Time Temp Pulse Resp B/P (MAP) Pulse Ox O2 Delivery O2 Flow Rate FiO2 09/16/18 19:00 98.1 106 19 174/95 (121) 90 Room Air 98.1 09/16/18 15:50 2.0 Labs Labs Laboratory Tests Test 09/16/18 13:30 White Blood Count 10.9 x10^3/uL (4.0-11.0) Red Blood Count 4.57 x10^6/uL (4.30-5.70) Hemoglobin 13.8 g/dL (13.0-17.5) Hematocrit 41.2 % (39.0-53.0) Mean Corpuscular Volume 90 fL (79-100) Mean Corpuscular Hemoglobin 30 pg (25-35) Mean Corpuscular Hemoglobin Concent 34 g/dL (31-37) Red Cell Distribution Width 14.1 % (11.5-14.5) Platelet Count 252 x10^3/uL (140-400) Neutrophils (%) (Auto) 76 % (31-73) Lymphocytes (%) (Auto) 15 % (24-48) Monocytes (%) (Auto) 6 % (0-9) Eosinophils (%) (Auto) 3 % (0-3) Basophils (%) (Auto) 0 % (0-3) Neutrophils # (Auto) 8.2 x10^3uL (1.8-7.7) Lymphocytes # (Auto) 1.6 x10^3/uL (1.0-4.8) Monocytes # (Auto) 0.7 x10^3/uL (0.0-1.1) Eosinophils # (Auto) 0.3 x10^3/uL (0.0-0.7) Basophils # (Auto) 0.0 x10^3/uL (0.0-0.2) Sodium Level 140 mmol/L (136-145) Potassium Level 3.9 mmol/L (3.5-5.1) Chloride Level 103 mmol/L (98-107) Carbon Dioxide Level 31 mmol/L (21-32) Anion Gap 6 (6-14) Blood Urea Nitrogen 11 mg/dL (8-26) Creatinine 0.6 mg/dL (0.7-1.3) Estimated GFR (Cockcroft-Gault) 144.4 Glucose Level 157 mg/dL (70-99) Calcium Level 8.5 mg/dL (8.5-10.1) Total Bilirubin 0.1 mg/dL (0.2-1.0) Direct Bilirubin < 0.1 mg/dL (0.0-0.2) Aspartate Amino Transf (AST/SGOT) 42 U/L (15-37) Alanine Aminotransferase (ALT/SGPT) 59 U/L (16-63) Alkaline Phosphatase 104 U/L (46-116) Troponin I Quantitative < 0.017 ng/mL (0.000-0.055) RP-Ydf-G-Type Natriuretic Peptide 50 pg/mL (0-124) Total Protein 7.4 g/dL (6.4-8.2) Albumin 3.4 g/dL (3.4-5.0) Lipase 63 U/L (73-393) Laboratory Tests Test 09/16/18 13:30 White Blood Count 10.9 x10^3/uL (4.0-11.0) Red Blood Count 4.57 x10^6/uL (4.30-5.70) Hemoglobin 13.8 g/dL (13.0-17.5) Hematocrit 41.2 % (39.0-53.0) Mean Corpuscular Volume 90 fL (79-100) Mean Corpuscular Hemoglobin 30 pg (25-35) Mean Corpuscular Hemoglobin Concent 34 g/dL (31-37) Red Cell Distribution Width 14.1 % (11.5-14.5) Platelet Count 252 x10^3/uL (140-400) Neutrophils (%) (Auto) 76 % (31-73) Lymphocytes (%) (Auto) 15 % (24-48) Monocytes (%) (Auto) 6 % (0-9) Eosinophils (%) (Auto) 3 % (0-3) Basophils (%) (Auto) 0 % (0-3) Neutrophils # (Auto) 8.2 x10^3uL (1.8-7.7) Lymphocytes # (Auto) 1.6 x10^3/uL (1.0-4.8) Monocytes # (Auto) 0.7 x10^3/uL (0.0-1.1) Eosinophils # (Auto) 0.3 x10^3/uL (0.0-0.7) Basophils # (Auto) 0.0 x10^3/uL (0.0-0.2) Sodium Level 140 mmol/L (136-145) Potassium Level 3.9 mmol/L (3.5-5.1) Chloride Level 103 mmol/L (98-107) Carbon Dioxide Level 31 mmol/L (21-32) Anion Gap 6 (6-14) Blood Urea Nitrogen 11 mg/dL (8-26) Creatinine 0.6 mg/dL (0.7-1.3) Estimated GFR (Cockcroft-Gault) 144.4 Glucose Level 157 mg/dL (70-99) Calcium Level 8.5 mg/dL (8.5-10.1) Total Bilirubin 0.1 mg/dL (0.2-1.0) Direct Bilirubin < 0.1 mg/dL (0.0-0.2) Aspartate Amino Transf (AST/SGOT) 42 U/L (15-37) Alanine Aminotransferase (ALT/SGPT) 59 U/L (16-63) Alkaline Phosphatase 104 U/L (46-116) Troponin I Quantitative < 0.017 ng/mL (0.000-0.055) KD-Onw-X-Type Natriuretic Peptide 50 pg/mL (0-124) Total Protein 7.4 g/dL (6.4-8.2) Albumin 3.4 g/dL (3.4-5.0) Lipase 63 U/L (73-393) VTE Prophylaxis Ordered VTE Prophylaxis Devices: Contraindicated VTE Pharmacological Prophylaxi: Yes Assessment/Plan Assessment/Plan leg swelling, with erythema poss corpulmonale, check echo COPD, with bronchitis, steroids, nebs, abx, given, he feels much improved, obesity, BMI 35 anxiety d/o insomnia tobacco use disorder CHF, acute? check echo JOSELINE JAUREGUI MD Sep 16, 2018 21:51
[2018-09-16] MEDS ORDERED: ENOXAPARIN 40 MG/0.4 ML SYRINGE. SQ SCH (22:00)
[2018-09-16 23:00] VITALS: BP 171/87
[2018-09-17 03:00] VITALS: BP 160/91
[2018-09-17 04:51] LABS: BASO % 0 % (0-3); EOS % 0 % (0-3); HEMOGLOBIN 13.8 g/dL (13.0-17.5); LYMPH # 0.4 x10^3/uL (1.0-4.8); LYMPH % 4 % (24-48); MEAN CORPUSCULAR HEMOGLOBIN 30 pg (25-35); MEAN CORPUSCULAR HGB CONC 33 g/dL (31-37); MEAN CORPUSCULAR VOLUME 92 fL (79-100); MONO # 0.4 x10^3/uL (0.0-1.1); MONO % 3 % (0-9); NEUT # 10.7 x10^3uL (1.8-7.7); NEUT % 93 % (31-73); PLATELET COUNT 251 x10^3/uL (140-400); RED BLOOD COUNT 4.57 x10^6/uL (4.30-5.70); RED CELL DISTRIBUTION WIDTH 14.2 % (11.5-14.5); WHITE BLOOD COUNT 11.5 x10^3/uL (4.0-11.0)
[2018-09-17 05:13] LABS: CALCIUM 8.7 mg/dL (8.5-10.1); CREATININE 0.8 mg/dL (0.7-1.3); GFR 103.6; POTASSIUM 4.2 mmol/L (3.5-5.1)
[2018-09-17 07:00] VITALS: BP 135/80
[2018-09-17] MEDS: IPRATRPIUM/ALBUTEROL 0.5/2.5MG 3 ML NEBU. NEB SCH ×3 (07:29→11:05)
[2018-09-17 07:55] LABS: % BANDS 3 % (0-9); % MONOS 1 % (0-10); % SEGS 96 % (35-66); PLT ESTIMATE ADEQUATE (ADEQUATE)
[2018-09-17] MEDS ORDERED: LACTOBACILLUS RHAMNOSUS GG 1 CAPSULE. PO SCH (09:00)
[2018-09-17] MEDS ORDERED: predniSONE 20 MG TABLET PO SCH (09:00)
--- NOTE | 2018-09-17 10:05 | PDOC ---
PROGRESS NOTES Chief Complaint Chief Complaint leg swelling, with erythema poss corpulmonale, check echo COPD, with bronchitis, steroids, nebs, abx, given, he feels much improved, obesity, BMI 35 anxiety d/o insomnia tobacco use disorder CHF, echo ordered, History of Present Illness History of Present Illness consult CV, edema is a little better with lasix, continue hyperglycemia with steroids given, taper steriods, add SSI cont current pulm to see Vitals Vitals Vital Signs Date Time Temp Pulse Resp B/P (MAP) Pulse Ox O2 Delivery O2 Flow Rate FiO2 09/17/18 07:31 90 Room Air 09/17/18 07:00 98.0 92 18 135/80 (98) 98.0 09/16/18 15:50 2.0 Physical Exam General: Alert, Cooperative, No acute distress Lungs: Clear Abdomen: Normal bowel sounds, Soft (obese) Extremities: No cyanosis, Normal pulses Skin: No breakdown, Other (erythema to bilat shins, tender, blanchable, ) Labs LABS Laboratory Tests Test 09/16/18 13:30 09/17/18 04:15 White Blood Count 10.9 x10^3/uL (4.0-11.0) 11.5 x10^3/uL (4.0-11.0) Red Blood Count 4.57 x10^6/uL (4.30-5.70) 4.57 x10^6/uL (4.30-5.70) Hemoglobin 13.8 g/dL (13.0-17.5) 13.8 g/dL (13.0-17.5) Hematocrit 41.2 % (39.0-53.0) 42.0 % (39.0-53.0) Mean Corpuscular Volume 90 fL (79-100) 92 fL (79-100) Mean Corpuscular Hemoglobin 30 pg (25-35) 30 pg (25-35) Mean Corpuscular Hemoglobin Concent 34 g/dL (31-37) 33 g/dL (31-37) Red Cell Distribution Width 14.1 % (11.5-14.5) 14.2 % (11.5-14.5) Platelet Count 252 x10^3/uL (140-400) 251 x10^3/uL (140-400) Neutrophils (%) (Auto) 76 % (31-73) 93 % (31-73) Lymphocytes (%) (Auto) 15 % (24-48) 4 % (24-48) Monocytes (%) (Auto) 6 % (0-9) 3 % (0-9) Eosinophils (%) (Auto) 3 % (0-3) 0 % (0-3) Basophils (%) (Auto) 0 % (0-3) 0 % (0-3) Neutrophils # (Auto) 8.2 x10^3uL (1.8-7.7) 10.7 x10^3uL (1.8-7.7) Lymphocytes # (Auto) 1.6 x10^3/uL (1.0-4.8) 0.4 x10^3/uL (1.0-4.8) Monocytes # (Auto) 0.7 x10^3/uL (0.0-1.1) 0.4 x10^3/uL (0.0-1.1) Eosinophils # (Auto) 0.3 x10^3/uL (0.0-0.7) 0.0 x10^3/uL (0.0-0.7) Basophils # (Auto) 0.0 x10^3/uL (0.0-0.2) 0.0 x10^3/uL (0.0-0.2) Sodium Level 140 mmol/L (136-145) 141 mmol/L (136-145) Potassium Level 3.9 mmol/L (3.5-5.1) 4.2 mmol/L (3.5-5.1) Chloride Level 103 mmol/L (98-107) 103 mmol/L (98-107) Carbon Dioxide Level 31 mmol/L (21-32) 32 mmol/L (21-32) Anion Gap 6 (6-14) 6 (6-14) Blood Urea Nitrogen 11 mg/dL (8-26) 12 mg/dL (8-26) Creatinine 0.6 mg/dL (0.7-1.3) 0.8 mg/dL (0.7-1.3) Estimated GFR (Cockcroft-Gault) 144.4 103.6 Glucose Level 157 mg/dL (70-99) 240 mg/dL (70-99) Calcium Level 8.5 mg/dL (8.5-10.1) 8.7 mg/dL (8.5-10.1) Total Bilirubin 0.1 mg/dL (0.2-1.0) Direct Bilirubin < 0.1 mg/dL (0.0-0.2) Aspartate Amino Transf (AST/SGOT) 42 U/L (15-37) Alanine Aminotransferase (ALT/SGPT) 59 U/L (16-63) Alkaline Phosphatase 104 U/L (46-116) Troponin I Quantitative < 0.017 ng/mL (0.000-0.055) OW-Oml-Q-Type Natriuretic Peptide 50 pg/mL (0-124) Total Protein 7.4 g/dL (6.4-8.2) Albumin 3.4 g/dL (3.4-5.0) Lipase 63 U/L (73-393) Segmented Neutrophils % 96 % (35-66) Band Neutrophils % 3 % (0-9) Monocytes % 1 % (0-10) Platelet Estimate Adequate (ADEQUATE) Review of Systems Review of Systems slept better than he has no event no n/v/d Assessment and Plan Assessmemt and Plan Problems Medical Problems: (1) Bilateral pulmonary infiltrates on chest x-ray Status: Acute (2) Cellulitis Status: Acute (3) COPD exacerbation Status: Acute (4) Pedal edema Status: Acute Comment Review of Relevant I have reviewed the following items anh (where applicable) has been applied. Labs Laboratory Tests Test 09/16/18 13:30 09/17/18 04:15 White Blood Count 10.9 x10^3/uL (4.0-11.0) 11.5 x10^3/uL (4.0-11.0) Red Blood Count 4.57 x10^6/uL (4.30-5.70) 4.57 x10^6/uL (4.30-5.70) Hemoglobin 13.8 g/dL (13.0-17.5) 13.8 g/dL (13.0-17.5) Hematocrit 41.2 % (39.0-53.0) 42.0 % (39.0-53.0) Mean Corpuscular Volume 90 fL (79-100) 92 fL (79-100) Mean Corpuscular Hemoglobin 30 pg (25-35) 30 pg (25-35) Mean Corpuscular Hemoglobin Concent 34 g/dL (31-37) 33 g/dL (31-37) Red Cell Distribution Width 14.1 % (11.5-14.5) 14.2 % (11.5-14.5) Platelet Count 252 x10^3/uL (140-400) 251 x10^3/uL (140-400) Neutrophils (%) (Auto) 76 % (31-73) 93 % (31-73) Lymphocytes (%) (Auto) 15 % (24-48) 4 % (24-48) Monocytes (%) (Auto) 6 % (0-9) 3 % (0-9) Eosinophils (%) (Auto) 3 % (0-3) 0 % (0-3) Basophils (%) (Auto) 0 % (0-3) 0 % (0-3) Neutrophils # (Auto) 8.2 x10^3uL (1.8-7.7) 10.7 x10^3uL (1.8-7.7) Lymphocytes # (Auto) 1.6 x10^3/uL (1.0-4.8) 0.4 x10^3/uL (1.0-4.8) Monocytes # (Auto) 0.7 x10^3/uL (0.0-1.1) 0.4 x10^3/uL (0.0-1.1) Eosinophils # (Auto) 0.3 x10^3/uL (0.0-0.7) 0.0 x10^3/uL (0.0-0.7) Basophils # (Auto) 0.0 x10^3/uL (0.0-0.2) 0.0 x10^3/uL (0.0-0.2) Sodium Level 140 mmol/L (136-145) 141 mmol/L (136-145) Potassium Level 3.9 mmol/L (3.5-5.1) 4.2 mmol/L (3.5-5.1) Chloride Level 103 mmol/L (98-107) 103 mmol/L (98-107) Carbon Dioxide Level 31 mmol/L (21-32) 32 mmol/L (21-32) Anion Gap 6 (6-14) 6 (6-14) Blood Urea Nitrogen 11 mg/dL (8-26) 12 mg/dL (8-26) Creatinine 0.6 mg/dL (0.7-1.3) 0.8 mg/dL (0.7-1.3) Estimated GFR (Cockcroft-Gault) 144.4 103.6 Glucose Level 157 mg/dL (70-99) 240 mg/dL (70-99) Calcium Level 8.5 mg/dL (8.5-10.1) 8.7 mg/dL (8.5-10.1) Total Bilirubin 0.1 mg/dL (0.2-1.0) Direct Bilirubin < 0.1 mg/dL (0.0-0.2) Aspartate Amino Transf (AST/SGOT) 42 U/L (15-37) Alanine Aminotransferase (ALT/SGPT) 59 U/L (16-63) Alkaline Phosphatase 104 U/L (46-116) Troponin I Quantitative < 0.017 ng/mL (0.000-0.055) VK-Hqp-B-Type Natriuretic Peptide 50 pg/mL (0-124) Total Protein 7.4 g/dL (6.4-8.2) Albumin 3.4 g/dL (3.4-5.0) Lipase 63 U/L (73-393) Segmented Neutrophils % 96 % (35-66) Band Neutrophils % 3 % (0-9) Monocytes % 1 % (0-10) Platelet Estimate Adequate (ADEQUATE) Laboratory Tests Test 09/16/18 13:30 09/17/18 04:15 White Blood Count 10.9 x10^3/uL (4.0-11.0) 11.5 x10^3/uL (4.0-11.0) Red Blood Count 4.57 x10^6/uL (4.30-5.70) 4.57 x10^6/uL (4.30-5.70) Hemoglobin 13.8 g/dL (13.0-17.5) 13.8 g/dL (13.0-17.5) Hematocrit 41.2 % (39.0-53.0) 42.0 % (39.0-53.0) Mean Corpuscular Volume 90 fL (79-100) 92 fL (79-100) Mean Corpuscular Hemoglobin 30 pg (25-35) 30 pg (25-35) Mean Corpuscular Hemoglobin Concent 34 g/dL (31-37) 33 g/dL (31-37) Red Cell Distribution Width 14.1 % (11.5-14.5) 14.2 % (11.5-14.5) Platelet Count 252 x10^3/uL (140-400) 251 x10^3/uL (140-400) Neutrophils (%) (Auto) 76 % (31-73) 93 % (31-73) Lymphocytes (%) (Auto) 15 % (24-48) 4 % (24-48) Monocytes (%) (Auto) 6 % (0-9) 3 % (0-9) Eosinophils (%) (Auto) 3 % (0-3) 0 % (0-3) Basophils (%) (Auto) 0 % (0-3) 0 % (0-3) Neutrophils # (Auto) 8.2 x10^3uL (1.8-7.7) 10.7 x10^3uL (1.8-7.7) Lymphocytes # (Auto) 1.6 x10^3/uL (1.0-4.8) 0.4 x10^3/uL (1.0-4.8) Monocytes # (Auto) 0.7 x10^3/uL (0.0-1.1) 0.4 x10^3/uL (0.0-1.1) Eosinophils # (Auto) 0.3 x10^3/uL (0.0-0.7) 0.0 x10^3/uL (0.0-0.7) Basophils # (Auto) 0.0 x10^3/uL (0.0-0.2) 0.0 x10^3/uL (0.0-0.2) Sodium Level 140 mmol/L (136-145) 141 mmol/L (136-145) Potassium Level 3.9 mmol/L (3.5-5.1) 4.2 mmol/L (3.5-5.1) Chloride Level 103 mmol/L (98-107) 103 mmol/L (98-107) Carbon Dioxide Level 31 mmol/L (21-32) 32 mmol/L (21-32) Anion Gap 6 (6-14) 6 (6-14) Blood Urea Nitrogen 11 mg/dL (8-26) 12 mg/dL (8-26) Creatinine 0.6 mg/dL (0.7-1.3) 0.8 mg/dL (0.7-1.3) Estimated GFR (Cockcroft-Gault) 144.4 103.6 Glucose Level 157 mg/dL (70-99) 240 mg/dL (70-99) Calcium Level 8.5 mg/dL (8.5-10.1) 8.7 mg/dL (8.5-10.1) Total Bilirubin 0.1 mg/dL (0.2-1.0) Direct Bilirubin < 0.1 mg/dL (0.0-0.2) Aspartate Amino Transf (AST/SGOT) 42 U/L (15-37) Alanine Aminotransferase (ALT/SGPT) 59 U/L (16-63) Alkaline Phosphatase 104 U/L (46-116) Troponin I Quantitative < 0.017 ng/mL (0.000-0.055) PO-Uwu-U-Type Natriuretic Peptide 50 pg/mL (0-124) Total Protein 7.4 g/dL (6.4-8.2) Albumin 3.4 g/dL (3.4-5.0) Lipase 63 U/L (73-393) Segmented Neutrophils % 96 % (35-66) Band Neutrophils % 3 % (0-9) Monocytes % 1 % (0-10) Platelet Estimate Adequate (ADEQUATE) Medications Current Medications Albuterol/ Ipratropium (Duoneb) 3 ml 1X ONCE NEB Last administered on 09/16/18at 14:34; Start 09/16/18 at 13:30; Stop 09/16/18 at 13:31; Status DC Methylprednisolone Sodium Succinate (SOLU-Medrol 125MG VIAL) 125 mg 1X ONCE IV Last administered on 09/16/18at 15:07; Start 09/16/18 at 14:30; Stop 09/16/18 at 14:31; Status DC Ceftriaxone Sodium (Rocephin) 1 gm 1X ONCE IVP Last administered on 09/16/18at 15:07; Start 09/16/18 at 14:30; Stop 09/16/18 at 14:31; Status DC Furosemide (Lasix) 20 mg 1X ONCE PO Last administered on 09/16/18at 15:05; Start 09/16/18 at 14:30; Stop 09/16/18 at 14:31; Status DC Ondansetron HCl (Zofran) 4 mg PRN Q8HRS PRN IV NAUSEA/VOMITING Last administered on 09/16/18at 15:05; Start 09/16/18 at 14:30; Stop 09/17/18 at 14:29 Morphine Sulfate (Morphine Sulfate) 2 mg PRN Q2HR PRN IV PAIN Last administered on 09/16/18at 15:08; Start 09/16/18 at 14:30; Stop 09/17/18 at 14:29 Nicotine (Nicoderm Cq 21mg) 1 patch PRN DAILY PRN TD SMOKING CESSATION; Start 09/16/18 at 21:45 Nicotine Polacrilex (Nicorette Gum) 1 each PRN Q1HR PRN BC SMOKING CESSATION Last administered on 09/16/18at 22:57; Start 09/16/18 at 21:45 Zolpidem Tartrate (Ambien) 5 mg PRN QHS PRN PO INSOMNIA, MAY REPEAT IN 1HR; Start 09/16/18 at 21:45 Ceftriaxone Sodium (Rocephin) 1 gm Q24H IVP ; Start 09/17/18 at 14:00 Albuterol/ Ipratropium (Duoneb) 3 ml RTQID NEB Last administered on 09/17/18at 07:29; Start 09/17/18 at 08:00 Enoxaparin Sodium (Lovenox Per Pharmacy Prophylaxis Dosing) 1 each PRN DAILY PRN MC SEE COMMENTS; Start 09/16/18 at 22:00 Prednisone (Prednisone) 40 mg DAILY PO Last administered on 09/17/18at 08:51; Start 09/17/18 at 09:00 Enoxaparin Sodium (Lovenox 40mg Syringe) 40 mg Q24H SQ Last administered on 09/17/18at 00:12; Start 09/16/18 at 22:00 Lactobacillus Rhamnosus (Culturelle) 1 cap BID PO Last administered on 09/17/18at 08:51; Start 09/17/18 at 09:00 Active Scripts Active Vitals/I & O Vital Sign - Last 24 Hours 09/16/18 09/16/18 09/16/18 09/16/18 13:06 13:09 14:20 14:35 Temp 98.2 98.2 Pulse 110 107 90 Resp 18 B/P (MAP) 155/90 (111) 155/90 (111) 155/81 (105) Pulse Ox 93 96 95 97 O2 Delivery Nasal Cannula Room Air Room Air Nasal Cannula O2 Flow Rate 2.0 2.0 09/16/18 09/16/18 09/16/18 09/16/18 14:50 15:08 15:20 15:50 Pulse 96 94 90 Resp 18 18 18 18 B/P (MAP) 147/61 (89) 138/82 (100) 138/78 (98) Pulse Ox 93 94 89 93 O2 Delivery Room Air Room Air Nasal Cannula O2 Flow Rate 2.0 2.0 2.0 2.0 09/16/18 09/16/18 09/16/18 09/17/18 19:00 20:00 23:00 03:00 Temp 98.1 98.1 97.9 98.1 98.1 97.9 Pulse 106 122 108 Resp B/P (MAP) 174/95 (121) 171/87 (115) 160/91 (114) Pulse Ox 90 90 91 O2 Delivery Room Air Room Air Room Air Room Air 09/17/18 09/17/18 07:00 07:31 Temp 98.0 98.0 Pulse 92 Resp 18 B/P (MAP) 135/80 (98) Pulse Ox 92 90 O2 Delivery Room Air Room Air Intake and Output 09/16/18 09/16/18 09/17/18 15:00 23:00 07:00 Intake Total 450 ml 450 ml Balance 450 ml 450 ml JOSELINE JAUREGUI MD Sep 17, 2018 10:05
[2018-09-17] MEDS ORDERED: DEXTROSE 50% 25 GM / 50ML DISP.SYRIN. IV PRN (10:15)
[2018-09-17 11:00] VITALS: BP 151/75
--- NOTE | 2018-09-17 11:47 | PDOC2 ---
CONSULT Date of Consult Date of Consult DATE: 09/17/18 TIME: 11:47 Reason for Consult Reason for Consult: Edema Referring Physician Referring Physician: Dr. Bergman Identification/Chief Complaint Chief Complaint Edema Source Source: Chart review, Patient History of Present Illness Reason for Visit: 48-year-old male presented with progressive bilateral lower extremity edema associated with reddish discoloration. He had mild shortness of breath on presentation but stated that this has resolved now. He denied any chest pain, palpitations or syncope. Past Medical History Cardiovascular: HTN Pulmonary: COPD Endocrine: No pertinent hx Dermatology: No pertinent hx Past Surgical History Past Surgical History: Cholecystectomy, No pertinent history Social History 1 pack per day ALCOHOL: rare Drugs: None Current Problem List Problem List Problems Medical Problems: (1) Bilateral pulmonary infiltrates on chest x-ray Status: Acute (2) Cellulitis Status: Acute (3) COPD exacerbation Status: Acute (4) Pedal edema Status: Acute Current Medications Current Medications Current Medications Albuterol/ Ipratropium (Duoneb) 3 ml 1X ONCE NEB Last administered on 09/16/18at 14:34; Start 09/16/18 at 13:30; Stop 09/16/18 at 13:31; Status DC Methylprednisolone Sodium Succinate (SOLU-Medrol 125MG VIAL) 125 mg 1X ONCE IV Last administered on 09/16/18at 15:07; Start 09/16/18 at 14:30; Stop 09/16/18 at 14:31; Status DC Ceftriaxone Sodium (Rocephin) 1 gm 1X ONCE IVP Last administered on 09/16/18at 15:07; Start 09/16/18 at 14:30; Stop 09/16/18 at 14:31; Status DC Furosemide (Lasix) 20 mg 1X ONCE PO Last administered on 09/16/18at 15:05; Start 09/16/18 at 14:30; Stop 09/16/18 at 14:31; Status DC Ondansetron HCl (Zofran) 4 mg PRN Q8HRS PRN IV NAUSEA/VOMITING Last administered on 09/16/18at 15:05; Start 09/16/18 at 14:30; Stop 09/17/18 at 14:29 Morphine Sulfate (Morphine Sulfate) 2 mg PRN Q2HR PRN IV PAIN Last administered on 09/16/18at 15:08; Start 09/16/18 at 14:30; Stop 09/17/18 at 14:29 Nicotine (Nicoderm Cq 21mg) 1 patch PRN DAILY PRN TD SMOKING CESSATION; Start 09/16/18 at 21:45 Nicotine Polacrilex (Nicorette Gum) 1 each PRN Q1HR PRN BC SMOKING CESSATION Last administered on 09/16/18at 22:57; Start 09/16/18 at 21:45 Zolpidem Tartrate (Ambien) 5 mg PRN QHS PRN PO INSOMNIA, MAY REPEAT IN 1HR; Start 09/16/18 at 21:45 Ceftriaxone Sodium (Rocephin) 1 gm Q24H IVP ; Start 09/17/18 at 14:00 Albuterol/ Ipratropium (Duoneb) 3 ml RTQID NEB Last administered on 09/17/18at 11:05; Start 09/17/18 at 08:00 Enoxaparin Sodium (Lovenox Per Pharmacy Prophylaxis Dosing) 1 each PRN DAILY PRN MC SEE COMMENTS; Start 09/16/18 at 22:00 Prednisone (Prednisone) 40 mg DAILY PO Last administered on 09/17/18at 08:51; Start 09/17/18 at 09:00; Stop 09/17/18 at 10:04; Status DC Enoxaparin Sodium (Lovenox 40mg Syringe) 40 mg Q24H SQ Last administered on 09/17/18at 00:12; Start 09/16/18 at 22:00 Lactobacillus Rhamnosus (Culturelle) 1 cap BID PO Last administered on 09/17/18at 08:51; Start 09/17/18 at 09:00 Prednisone (Prednisone) 30 mg DAILY PO ; Start 09/18/18 at 09:00 Insulin Human Lispro (HumaLOG) 0-9 UNITS TIDWMEALS SQ ; Start 09/17/18 at 12:00 Dextrose (Dextrose 50%-Water Syringe) 12.5 gm PRN Q15MIN PRN IV SEE COMMENTS; Start 09/17/18 at 10:15 Active Scripts Active Allergies Allergies: Coded Allergies: No Known Drug Allergies (Unverified , 09/29/15) ROS PSYCHOLOGICAL ROS: No: Hallucinations Eyes: No Loss of vision HEENT: No: Epistaxis Respiratory: YES: Shortness of breath; No: Hemoptysis Cardiovascular: No Chest Pain Gastrointestinal: No Vomiting Genitourinary: No Hematuria Musculoskeletal: Yes Swelling In: (legs) Neurological: No Seizures Skin: No Rash Physical Exam General: Alert HEENT: Atraumatic, PERRLA Lungs: Clear to auscultation Heart: Regular rate Abdomen: Soft Extremities: Other (2+ pitting edema with discoloration) Psych/Mental Status: Mood NL Vitals VITALS Vital Signs Date Time Temp Pulse Resp B/P (MAP) Pulse Ox O2 Delivery O2 Flow Rate FiO2 09/17/18 11:02 93 Room Air 09/17/18 11:00 98.0 99 20 151/75 (100) 98.0 09/16/18 15:50 2.0 Labs Labs Laboratory Tests Test 09/16/18 13:30 09/17/18 04:15 09/17/18 11:27 White Blood Count 10.9 x10^3/uL (4.0-11.0) 11.5 x10^3/uL (4.0-11.0) Red Blood Count 4.57 x10^6/uL (4.30-5.70) 4.57 x10^6/uL (4.30-5.70) Hemoglobin 13.8 g/dL (13.0-17.5) 13.8 g/dL (13.0-17.5) Hematocrit 41.2 % (39.0-53.0) 42.0 % (39.0-53.0) Mean Corpuscular Volume 90 fL (79-100) 92 fL (79-100) Mean Corpuscular Hemoglobin 30 pg (25-35) 30 pg (25-35) Mean Corpuscular Hemoglobin Concent 34 g/dL (31-37) 33 g/dL (31-37) Red Cell Distribution Width 14.1 % (11.5-14.5) 14.2 % (11.5-14.5) Platelet Count 252 x10^3/uL (140-400) 251 x10^3/uL (140-400) Neutrophils (%) (Auto) 76 % (31-73) 93 % (31-73) Lymphocytes (%) (Auto) 15 % (24-48) 4 % (24-48) Monocytes (%) (Auto) 6 % (0-9) 3 % (0-9) Eosinophils (%) (Auto) 3 % (0-3) 0 % (0-3) Basophils (%) (Auto) 0 % (0-3) 0 % (0-3) Neutrophils # (Auto) 8.2 x10^3uL (1.8-7.7) 10.7 x10^3uL (1.8-7.7) Lymphocytes # (Auto) 1.6 x10^3/uL (1.0-4.8) 0.4 x10^3/uL (1.0-4.8) Monocytes # (Auto) 0.7 x10^3/uL (0.0-1.1) 0.4 x10^3/uL (0.0-1.1) Eosinophils # (Auto) 0.3 x10^3/uL (0.0-0.7) 0.0 x10^3/uL (0.0-0.7) Basophils # (Auto) 0.0 x10^3/uL (0.0-0.2) 0.0 x10^3/uL (0.0-0.2) Sodium Level 140 mmol/L (136-145) 141 mmol/L (136-145) Potassium Level 3.9 mmol/L (3.5-5.1) 4.2 mmol/L (3.5-5.1) Chloride Level 103 mmol/L (98-107) 103 mmol/L (98-107) Carbon Dioxide Level 31 mmol/L (21-32) 32 mmol/L (21-32) Anion Gap 6 (6-14) 6 (6-14) Blood Urea Nitrogen 11 mg/dL (8-26) 12 mg/dL (8-26) Creatinine 0.6 mg/dL (0.7-1.3) 0.8 mg/dL (0.7-1.3) Estimated GFR (Cockcroft-Gault) 144.4 103.6 Glucose Level 157 mg/dL (70-99) 240 mg/dL (70-99) Calcium Level 8.5 mg/dL (8.5-10.1) 8.7 mg/dL (8.5-10.1) Total Bilirubin 0.1 mg/dL (0.2-1.0) Direct Bilirubin < 0.1 mg/dL (0.0-0.2) Aspartate Amino Transf (AST/SGOT) 42 U/L (15-37) Alanine Aminotransferase (ALT/SGPT) 59 U/L (16-63) Alkaline Phosphatase 104 U/L (46-116) Troponin I Quantitative < 0.017 ng/mL (0.000-0.055) FO-Lza-Y-Type Natriuretic Peptide 50 pg/mL (0-124) Total Protein 7.4 g/dL (6.4-8.2) Albumin 3.4 g/dL (3.4-5.0) Lipase 63 U/L (73-393) Segmented Neutrophils % 96 % (35-66) Band Neutrophils % 3 % (0-9) Monocytes % 1 % (0-10) Platelet Estimate Adequate (ADEQUATE) Glucose (Fingerstick) 210 mg/dL (70-99) Laboratory Tests Test 09/16/18 13:30 09/17/18 04:15 09/17/18 11:27 White Blood Count 10.9 x10^3/uL (4.0-11.0) 11.5 x10^3/uL (4.0-11.0) Red Blood Count 4.57 x10^6/uL (4.30-5.70) 4.57 x10^6/uL (4.30-5.70) Hemoglobin 13.8 g/dL (13.0-17.5) 13.8 g/dL (13.0-17.5) Hematocrit 41.2 % (39.0-53.0) 42.0 % (39.0-53.0) Mean Corpuscular Volume 90 fL (79-100) 92 fL (79-100) Mean Corpuscular Hemoglobin 30 pg (25-35) 30 pg (25-35) Mean Corpuscular Hemoglobin Concent 34 g/dL (31-37) 33 g/dL (31-37) Red Cell Distribution Width 14.1 % (11.5-14.5) 14.2 % (11.5-14.5) Platelet Count 252 x10^3/uL (140-400) 251 x10^3/uL (140-400) Neutrophils (%) (Auto) 76 % (31-73) 93 % (31-73) Lymphocytes (%) (Auto) 15 % (24-48) 4 % (24-48) Monocytes (%) (Auto) 6 % (0-9) 3 % (0-9) Eosinophils (%) (Auto) 3 % (0-3) 0 % (0-3) Basophils (%) (Auto) 0 % (0-3) 0 % (0-3) Neutrophils # (Auto) 8.2 x10^3uL (1.8-7.7) 10.7 x10^3uL (1.8-7.7) Lymphocytes # (Auto) 1.6 x10^3/uL (1.0-4.8) 0.4 x10^3/uL (1.0-4.8) Monocytes # (Auto) 0.7 x10^3/uL (0.0-1.1) 0.4 x10^3/uL (0.0-1.1) Eosinophils # (Auto) 0.3 x10^3/uL (0.0-0.7) 0.0 x10^3/uL (0.0-0.7) Basophils # (Auto) 0.0 x10^3/uL (0.0-0.2) 0.0 x10^3/uL (0.0-0.2) Sodium Level 140 mmol/L (136-145) 141 mmol/L (136-145) Potassium Level 3.9 mmol/L (3.5-5.1) 4.2 mmol/L (3.5-5.1) Chloride Level 103 mmol/L (98-107) 103 mmol/L (98-107) Carbon Dioxide Level 31 mmol/L (21-32) 32 mmol/L (21-32) Anion Gap 6 (6-14) 6 (6-14) Blood Urea Nitrogen 11 mg/dL (8-26) 12 mg/dL (8-26) Creatinine 0.6 mg/dL (0.7-1.3) 0.8 mg/dL (0.7-1.3) Estimated GFR (Cockcroft-Gault) 144.4 103.6 Glucose Level 157 mg/dL (70-99) 240 mg/dL (70-99) Calcium Level 8.5 mg/dL (8.5-10.1) 8.7 mg/dL (8.5-10.1) Total Bilirubin 0.1 mg/dL (0.2-1.0) Direct Bilirubin < 0.1 mg/dL (0.0-0.2) Aspartate Amino Transf (AST/SGOT) 42 U/L (15-37) Alanine Aminotransferase (ALT/SGPT) 59 U/L (16-63) Alkaline Phosphatase 104 U/L (46-116) Troponin I Quantitative < 0.017 ng/mL (0.000-0.055) VA-Urp-H-Type Natriuretic Peptide 50 pg/mL (0-124) Total Protein 7.4 g/dL (6.4-8.2) Albumin 3.4 g/dL (3.4-5.0) Lipase 63 U/L (73-393) Segmented Neutrophils % 96 % (35-66) Band Neutrophils % 3 % (0-9) Monocytes % 1 % (0-10) Platelet Estimate Adequate (ADEQUATE) Glucose (Fingerstick) 210 mg/dL (70-99) Assessment/Plan Assessment/Plan 1. Edema with discoloration suspicious for venous insufficiency. Plan for 2-D echo and venous reflux study as an outpatient. Continue Lasix. 2. Dyspnea most probably COPD exacerbation. Improved since admission. Continue treatment per IM. 3. Hypertension: Controlled Thank you for your consultation MARIBEL TOMAS MD Sep 17, 2018 11:47
[2018-09-17] MEDS ORDERED: INSULIN LISPRO 300 UNITS/3 ML INSULN.PEN. SQ SCH (12:00)
[2018-09-17] MEDS ORDERED: PRED-220 PO (12:38)
[2018-09-17] MEDS ORDERED: DOXY100C2 PO (12:38)
[2018-09-17] MEDS ORDERED: IPRA4AER IH (12:38)
[2018-09-17] MEDS ORDERED: FURO-69 PO (12:40)
--- NOTE | 2018-09-17 12:43 | PDOC3 ---
Discharge Summary Visit Information Date of Admission: Sep 16, 2018 Date of Discharge: Sep 17, 2018 Final Diagnosis leg swelling, with erythema poss corpulmonale, check echo COPD, with bronchitis, steroids, nebs, abx, given, he feels much improved, obesity, BMI 35 anxiety d/o insomnia tobacco use disorder CHF, echo ordered, Problems Medical Problems: (1) Bilateral pulmonary infiltrates on chest x-ray Status: Acute (2) Cellulitis Status: Acute (3) COPD exacerbation Status: Acute (4) Pedal edema Status: Acute Brief Hospital Course Allergies Allergies Coded Allergies Type Severity Reaction Last Updated Verified No Known Drug Allergies 09/29/15 No Vital Signs Vital Signs Date Time Temp Pulse Resp B/P (MAP) Pulse Ox O2 Delivery O2 Flow Rate FiO2 09/17/18 11:02 93 Room Air 09/17/18 11:00 98.0 99 20 151/75 (100) 98.0 09/16/18 15:50 2.0 Lab Results Laboratory Tests Test 09/16/18 13:30 09/17/18 04:15 09/17/18 11:27 White Blood Count 10.9 x10^3/uL (4.0-11.0) 11.5 x10^3/uL (4.0-11.0) Red Blood Count 4.57 x10^6/uL (4.30-5.70) 4.57 x10^6/uL (4.30-5.70) Hemoglobin 13.8 g/dL (13.0-17.5) 13.8 g/dL (13.0-17.5) Hematocrit 41.2 % (39.0-53.0) 42.0 % (39.0-53.0) Mean Corpuscular Volume 90 fL (79-100) 92 fL (79-100) Mean Corpuscular Hemoglobin 30 pg (25-35) 30 pg (25-35) Mean Corpuscular Hemoglobin Concent 34 g/dL (31-37) 33 g/dL (31-37) Red Cell Distribution Width 14.1 % (11.5-14.5) 14.2 % (11.5-14.5) Platelet Count 252 x10^3/uL (140-400) 251 x10^3/uL (140-400) Neutrophils (%) (Auto) 76 % (31-73) 93 % (31-73) Lymphocytes (%) (Auto) 15 % (24-48) 4 % (24-48) Monocytes (%) (Auto) 6 % (0-9) 3 % (0-9) Eosinophils (%) (Auto) 3 % (0-3) 0 % (0-3) Basophils (%) (Auto) 0 % (0-3) 0 % (0-3) Neutrophils # (Auto) 8.2 x10^3uL (1.8-7.7) 10.7 x10^3uL (1.8-7.7) Lymphocytes # (Auto) 1.6 x10^3/uL (1.0-4.8) 0.4 x10^3/uL (1.0-4.8) Monocytes # (Auto) 0.7 x10^3/uL (0.0-1.1) 0.4 x10^3/uL (0.0-1.1) Eosinophils # (Auto) 0.3 x10^3/uL (0.0-0.7) 0.0 x10^3/uL (0.0-0.7) Basophils # (Auto) 0.0 x10^3/uL (0.0-0.2) 0.0 x10^3/uL (0.0-0.2) Sodium Level 140 mmol/L (136-145) 141 mmol/L (136-145) Potassium Level 3.9 mmol/L (3.5-5.1) 4.2 mmol/L (3.5-5.1) Chloride Level 103 mmol/L (98-107) 103 mmol/L (98-107) Carbon Dioxide Level 31 mmol/L (21-32) 32 mmol/L (21-32) Anion Gap 6 (6-14) 6 (6-14) Blood Urea Nitrogen 11 mg/dL (8-26) 12 mg/dL (8-26) Creatinine 0.6 mg/dL (0.7-1.3) 0.8 mg/dL (0.7-1.3) Estimated GFR (Cockcroft-Gault) 144.4 103.6 Glucose Level 157 mg/dL (70-99) 240 mg/dL (70-99) Calcium Level 8.5 mg/dL (8.5-10.1) 8.7 mg/dL (8.5-10.1) Total Bilirubin 0.1 mg/dL (0.2-1.0) Direct Bilirubin < 0.1 mg/dL (0.0-0.2) Aspartate Amino Transf (AST/SGOT) 42 U/L (15-37) Alanine Aminotransferase (ALT/SGPT) 59 U/L (16-63) Alkaline Phosphatase 104 U/L (46-116) Troponin I Quantitative < 0.017 ng/mL (0.000-0.055) BI-Alw-I-Type Natriuretic Peptide 50 pg/mL (0-124) Total Protein 7.4 g/dL (6.4-8.2) Albumin 3.4 g/dL (3.4-5.0) Lipase 63 U/L (73-393) Segmented Neutrophils % 96 % (35-66) Band Neutrophils % 3 % (0-9) Monocytes % 1 % (0-10) Platelet Estimate Adequate (ADEQUATE) Glucose (Fingerstick) 210 mg/dL (70-99) Laboratory Tests Test 09/16/18 13:30 09/17/18 04:15 09/17/18 11:27 White Blood Count 10.9 x10^3/uL (4.0-11.0) 11.5 x10^3/uL (4.0-11.0) Red Blood Count 4.57 x10^6/uL (4.30-5.70) 4.57 x10^6/uL (4.30-5.70) Hemoglobin 13.8 g/dL (13.0-17.5) 13.8 g/dL (13.0-17.5) Hematocrit 41.2 % (39.0-53.0) 42.0 % (39.0-53.0) Mean Corpuscular Volume 90 fL (79-100) 92 fL (79-100) Mean Corpuscular Hemoglobin 30 pg (25-35) 30 pg (25-35) Mean Corpuscular Hemoglobin Concent 34 g/dL (31-37) 33 g/dL (31-37) Red Cell Distribution Width 14.1 % (11.5-14.5) 14.2 % (11.5-14.5) Platelet Count 252 x10^3/uL (140-400) 251 x10^3/uL (140-400) Neutrophils (%) (Auto) 76 % (31-73) 93 % (31-73) Lymphocytes (%) (Auto) 15 % (24-48) 4 % (24-48) Monocytes (%) (Auto) 6 % (0-9) 3 % (0-9) Eosinophils (%) (Auto) 3 % (0-3) 0 % (0-3) Basophils (%) (Auto) 0 % (0-3) 0 % (0-3) Neutrophils # (Auto) 8.2 x10^3uL (1.8-7.7) 10.7 x10^3uL (1.8-7.7) Lymphocytes # (Auto) 1.6 x10^3/uL (1.0-4.8) 0.4 x10^3/uL (1.0-4.8) Monocytes # (Auto) 0.7 x10^3/uL (0.0-1.1) 0.4 x10^3/uL (0.0-1.1) Eosinophils # (Auto) 0.3 x10^3/uL (0.0-0.7) 0.0 x10^3/uL (0.0-0.7) Basophils # (Auto) 0.0 x10^3/uL (0.0-0.2) 0.0 x10^3/uL (0.0-0.2) Sodium Level 140 mmol/L (136-145) 141 mmol/L (136-145) Potassium Level 3.9 mmol/L (3.5-5.1) 4.2 mmol/L (3.5-5.1) Chloride Level 103 mmol/L (98-107) 103 mmol/L (98-107) Carbon Dioxide Level 31 mmol/L (21-32) 32 mmol/L (21-32) Anion Gap 6 (6-14) 6 (6-14) Blood Urea Nitrogen 11 mg/dL (8-26) 12 mg/dL (8-26) Creatinine 0.6 mg/dL (0.7-1.3) 0.8 mg/dL (0.7-1.3) Estimated GFR (Cockcroft-Gault) 144.4 103.6 Glucose Level 157 mg/dL (70-99) 240 mg/dL (70-99) Calcium Level 8.5 mg/dL (8.5-10.1) 8.7 mg/dL (8.5-10.1) Total Bilirubin 0.1 mg/dL (0.2-1.0) Direct Bilirubin < 0.1 mg/dL (0.0-0.2) Aspartate Amino Transf (AST/SGOT) 42 U/L (15-37) Alanine Aminotransferase (ALT/SGPT) 59 U/L (16-63) Alkaline Phosphatase 104 U/L (46-116) Troponin I Quantitative < 0.017 ng/mL (0.000-0.055) RF-Shg-C-Type Natriuretic Peptide 50 pg/mL (0-124) Total Protein 7.4 g/dL (6.4-8.2) Albumin 3.4 g/dL (3.4-5.0) Lipase 63 U/L (73-393) Segmented Neutrophils % 96 % (35-66) Band Neutrophils % 3 % (0-9) Monocytes % 1 % (0-10) Platelet Estimate Adequate (ADEQUATE) Glucose (Fingerstick) 210 mg/dL (70-99) Brief Hospital Course Mr. Romero is a 48 old admti with leg swelling with redness, cough, dyspnea. COPD with bronchitis, better with steroids, nebs, abx, felt better CV consulted for echo, edema. likely CHF, outpatient echo scheduled, Discharge Information Condition at Discharge: Improved Follow Up: Weeks Disposition/Orders: D/C to Home Scheduled Doxycycline Hyclate (Doxycycline Hyclate) 100 Mg Capsule, 1 CAP PO BID for bronchitis, #14 Prescribed by: JOSELINE JAUREGUI on 09/17/18 1238 Furosemide (Lasix) 20 Mg Tablet, 1 TAB PO QODAY for leg swelling, #15 Prescribed by: JOSELINE JAUREGUI on 09/17/18 1240 Ipratropium/Albuterol Sulfate (Combivent Respimat Inhal) 4 Gm Aer.w.adap, 1 INH IH QID for bronchitis, #1 Prescribed by: JOSELINE JAUREGUI on 09/17/18 1238 Prednisone (Prednisone ) 10 Mg Tablet, 10 MG PO UD for bronchitis, #10 Ref 0 Take 4 tablets by mouth daily for 2 days, then take 3 tablets by mouth daily for 2 days, then take 2 tablets by mouth daily for 2 days, then take 1 tablets by mouth daily for 2 days, then stop. Prescribed by: JOSELINE JAUREGUI on 09/17/18 1238 Patient Instructions Patient Instructions Time > 30 minutes JOSELINE JAUREGUI MD Sep 17, 2018 12:43
--- NOTE | 2018-09-17 13:29 | NUR ---
Discharge instructions, medications and prescriptions reviewed with patient, he verb. understanding all instructions and denies questions. Patient ready for discharge with all belongings, instructions and prescriptions when ride arrives.
--- NOTE | 2018-09-17 13:43 | NUR ---
Patient discharge to home with friend with all belongings, instructions and prescriptions.
[2018-09-17] MEDS ORDERED: cefTRIAXone IV Push 1 GM VIAL. IVP SCH (14:00)
[2018-09-18] MEDS ORDERED: predniSONE 20 MG TABLET PO SCH (09:00)
== END 2018-09-17 13:44 | disposition home or self-care (01) ==
LOC: ER 12:53 → 5 NORTH 14:22
PROVIDERS: ADMIT Internal Medicine; ATTEND Internal Medicine
DX: L03.116 Cellulitis of left lower limb (principal); L03.115 Cellulitis of right lower limb; I25.2 Old myocardial infarction; R00.0 Tachycardia, unspecified; J44.1 Chronic obstructive pulmonary disease with (acute) exacerbation; R91.8 Other nonspecific abnormal finding of lung field; R60.0 Localized edema; I25.10 Atherosclerotic heart disease of native coronary artery without angina pectoris; F17.210 Nicotine dependence, cigarettes, uncomplicated; E66.9 Obesity, unspecified; F41.9 Anxiety disorder, unspecified; G47.00 Insomnia, unspecified; I50.9 Heart failure, unspecified; I11.0 Hypertensive heart disease with heart failure; Z68.35 Body mass index [BMI] 35.0-35.9, adult; Z98.890 Other specified postprocedural states
CPT/HCPCS: 36415; 71045; 80048; 80076; 82962; 83690; 83880; 84484; 85007; 85025; 93005; 94640; 96372; 96374; 96375; 99284; G0378; J0696; J1650; J1815; J2270; J2405; J2930; J7512; J7620; G0379

== ENCOUNTER 2019-09-28 08:02 | Inpatient (IN) | payer SELFPAY ==
[~2019-09-28] VITALS: Ht 177.8 cm; Wt 112.9 kg
[~2019-09-28 08:02] MED LIST changes: +DOXY100C2 PO; +FURO-69 PO; +IPRA4AER IH; +PRED-220 PO
[2019-09-28] MEDS ORDERED: IPRATRPIUM/ALBUTEROL 0.5/2.5MG 3 ML NEBU. NEB ONE ×2 (08:30→13:45)
[2019-09-28 08:48] LABS: BASO % 0 % (0-3); EOS # 0.1 x10^3/uL (0.0-0.7); EOS % 0 % (0-3); HEMOGLOBIN 12.8 g/dL (13.0-17.5); LYMPH % 12 % (24-48); MEAN CORPUSCULAR HEMOGLOBIN 31 pg (25-35); MEAN CORPUSCULAR HGB CONC 34 g/dL (31-37); MEAN CORPUSCULAR VOLUME 92 fL (79-100); MONO % 6 % (0-9); NEUT # 13.4 x10^3/uL (1.8-7.7); NEUT % 81 % (31-73); PLATELET COUNT 292 x10^3/uL (140-400); RED BLOOD COUNT 4.11 x10^6/uL (4.30-5.70); RED CELL DISTRIBUTION WIDTH 13.7 % (11.5-14.5); WHITE BLOOD COUNT 16.5 x10^3/uL (4.0-11.0)
[2019-09-28 08:57] LABS: PROTHROMBIN TIME PATIENT 13.4 SEC (11.7-14.0)
[2019-09-28] MEDS ORDERED: methylPREDNISolone SOD SUCC PF 125 MG/2 ML VIAL. IV ONE (09:00)
[2019-09-28 09:04] LABS: CALCIUM 8.7 mg/dL (8.5-10.1); CREATININE 0.7 mg/dL (0.7-1.3); GFR 120.4; POTASSIUM 3.8 mmol/L (3.5-5.1)
[2019-09-28 09:12] LABS: ALBUMIN 3.4 g/dL (3.4-5.0); ALBUMIN/GLOBULIN RATIO 0.9 (1.0-1.7); MAGNESIUM 2.2 mg/dL (1.8-2.4); TOTAL BILIRUBIN 0.1 mg/dL (0.2-1.0)
--- NOTE | 2019-09-28 09:14 | RAD ---
Examination: CHEST AP ONLY History: soa Comparison: 09/16/2018 AP view of the chest. Findings: AP portable upright frontal view of the chest was obtained. Costophrenic angles were not fully included limiting evaluation. The cardiomediastinal silhouette is normal. Lungs are clear. There is no pneumothorax. No significant pleural effusion is appreciated. No acute bone abnormality. IMPRESSION: No acute cardiopulmonary process. Electronically signed by: Isidoro Morales MD (09/28/2019 9:11 AM) [id number]
[2019-09-28] MEDS ORDERED: CONTRAST GIVEN. MC PRN (11:00)
[2019-09-28] MEDS ORDERED: IOHEXOL 350 MG/ML 100 ML VIAL. IV ONE (11:00)
--- NOTE | 2019-09-28 12:30 | RAD ---
Examination: CT angiography chest with IV contrast HISTORY: History of shortness of breath, chest pain COMPARISON: CT chest from 04/06/2018 TECHNIQUE: Axial CT angiography images were performed with IV contrast. Coronal and sagittal 3-D MIP reformats are performed Exposure: One or more of the following individualized dose reduction techniques were utilized for this examination: 1. Automated exposure control 2. Adjustment of the mA and/or kV according to patient size 3. Use of iterative reconstruction technique FINDINGS: The visualized thyroid gland grossly appears unremarkable. The central airways are patent. The caliber of the aorta grossly appears unremarkable. There is not enough contrast within the pulmonary artery and its branches for evaluation of pulmonary embolism. Bilateral lung emphysematous changes. Mild bibasilar lung airspace opacities likely atelectasis or infiltrates. There is a 1.4 cm calcified nodule identified in the right upper lobe of the lung similar to prior exam. The previously visualized groundglass lung nodule in the left upper lobe has resolved Mild decreased attenuation noted in the liver likely hepatic steatosis. The spleen, adrenals grossly appears unremarkable. No evidence of lytic bony destructive lesion. IMPRESSION: 1. Evaluation for pulmonary embolism is limited as there is not enough contrast within the pulmonary artery and its branches. 2. Unchanged 1.4 cm calcified nodule right upper lobe of the lung. 3. Bilateral lung emphysematous changes. Mild bibasilar lung airspace opacities likely atelectasis or infiltrates. Electronically signed by: Gagandeep Mejia MD (09/28/2019 12:27 PM) [id number]
--- NOTE | 2019-09-28 13:39 | PHYS DOC ---
Past Medical History Past Medical History: COPD, CVA, Hypertension, MS, Pneumonia Past Surgical History: Cholecystectomy Smoking Status: Current Every Day Smoker Alcohol Use: None Drug Use: None General Adult EDM: Chief Complaint: SHORTNESS OF BREATH HPI: HPI: Patient is a 49 year old male who presented to ER today for evaluation of trouble breathing for several day. Patient denies any cough or fever. Patient denies any chest pain. Patient was admitted at [facility] for 4 days due to lower extremity cellulitis, he was discharged home, put on Keflex. Patient denies abdominal pain, no diarrhea. Patient is a not been exposed to anybody who tested positive for COVID-19. Review of Systems: Review of Systems: Constitutional: Denies fever or chills. [] Eyes: Denies change in visual acuity. [] HENT: Denies nasal congestion or sore throat. [] Respiratory: Positive for trouble breathing Cardiovascular: Denies chest pain or edema. [] GI: Denies abdominal pain, nausea, vomiting, bloody stools or diarrhea. [] : Denies dysuria. [] Musculoskeletal: Denies back pain or joint pain. [] Integument: Positive for bilateral legs swelling and redness Neurologic: Denies headache, focal weakness or sensory changes. [] Endocrine: Denies polyuria or polydipsia. [] Lymphatic: Denies swollen glands. [] Psychiatric: Denies depression or anxiety. [] Heart Score: Risk Factors: Risk Factors: DM, Current or recent (<one month) smoker, HTN, HLP, family history of CAD, obesity. Risk Scores: Score 0 - 3: 2.5% MACE over next 6 weeks - Discharge Home Score 4 - 6: 20.3% MACE over next 6 weeks - Admit for Clinical Observation Score 7 - 10: 72.7% MACE over next 6 weeks - Early Invasive Strategies Current Medications: Current Medications Medications (Trade) Dose Ordered Sig/Narinder Start Time Stop Time Status Last Admin Dose Admin Albuterol/ Ipratropium (Duoneb) 3 ml 1X ONCE 09/28/19 08:30 09/28/19 08:31 DC 09/28/19 09:08 3 ML Info (CONTRAST GIVEN -- Rx MONITORING) 1 each PRN DAILY PRN 09/28/19 11:00 09/30/19 10:59 Iohexol (Omnipaque 350 Mg/ml) 100 ml 1X ONCE 09/28/19 11:00 09/28/19 11:01 DC 09/28/19 11:00 100 ML Methylprednisolone Sodium Succinate (SOLU-Medrol 125MG VIAL) 125 mg 1X ONCE 09/28/19 09:00 09/28/19 09:01 DC 09/28/19 08:54 125 MG Allergies: Allergies: Allergies Coded Allergies Type Severity Reaction Last Updated Verified No Known Drug Allergies 09/29/15 No Physical Exam: PE: Constitutional: Well developed, well nourished, mild acute distress, non-toxic appearance. [] HENT: Normocephalic, atraumatic, bilateral external ears normal, oropharynx moist, no oral exudates, nose normal. [] Eyes: PERRLA, EOMI, conjunctiva normal, no discharge. [] Neck: Normal range of motion, no tenderness, supple, no stridor. [] Cardiovascular:Heart rate regular rhythm, no murmur [] Lungs & Thorax: lung sound deminished throughout, tachypnic, wheezing... Abdomen: Bowel sounds normal, soft, no tenderness, no masses, no pulsatile masses. [] Skin: Warm, dry, no erythema, no rash. [] Back: No tenderness, no CVA tenderness. [] Extremities: bilateral legs with erythema and tender to touch Neurologic: Alert and oriented X 3, normal motor function, normal sensory function, no focal deficits noted. [] Psychologic: Affect normal, judgement normal, mood normal. [] Current Patient Data: Labs: Laboratory Tests Test 09/28/19 08:23 White Blood Count 16.5 x10^3/uL (4.0-11.0) H Red Blood Count 4.11 x10^6/uL (4.30-5.70) L Hemoglobin 12.8 g/dL (13.0-17.5) L Hematocrit 38.0 % (39.0-53.0) L Mean Corpuscular Volume 92 fL (79-100) Mean Corpuscular Hemoglobin 31 pg (25-35) Mean Corpuscular Hemoglobin Concent 34 g/dL (31-37) Red Cell Distribution Width 13.7 % (11.5-14.5) Platelet Count 292 x10^3/uL (140-400) Neutrophils (%) (Auto) 81 % (31-73) H Lymphocytes (%) (Auto) 12 % (24-48) L Monocytes (%) (Auto) 6 % (0-9) Eosinophils (%) (Auto) 0 % (0-3) Basophils (%) (Auto) 0 % (0-3) Neutrophils # (Auto) 13.4 x10^3/uL (1.8-7.7) H Lymphocytes # (Auto) 2.0 x10^3/uL (1.0-4.8) Monocytes # (Auto) 1.0 x10^3/uL (0.0-1.1) Eosinophils # (Auto) 0.1 x10^3/uL (0.0-0.7) Basophils # (Auto) 0.0 x10^3/uL (0.0-0.2) Prothrombin Time 13.4 SEC (11.7-14.0) Prothrombin Time INR 1.1 (0.8-1.1) Activated Partial Thromboplast Time 24 SEC (24-38) Sodium Level 141 mmol/L (136-145) Potassium Level 3.8 mmol/L (3.5-5.1) Chloride Level 103 mmol/L (98-107) Carbon Dioxide Level 31 mmol/L (21-32) Anion Gap 7 (6-14) Blood Urea Nitrogen 16 mg/dL (8-26) Creatinine 0.7 mg/dL (0.7-1.3) Estimated GFR (Cockcroft-Gault) 120.4 BUN/Creatinine Ratio 23 (6-20) H Glucose Level 107 mg/dL (70-99) H Calcium Level 8.7 mg/dL (8.5-10.1) Magnesium Level 2.2 mg/dL (1.8-2.4) Total Bilirubin 0.1 mg/dL (0.2-1.0) L Aspartate Amino Transferase (AST) 42 U/L (15-37) H Alanine Aminotransferase (ALT) 72 U/L (16-63) H Alkaline Phosphatase 77 U/L (46-116) Troponin I Quantitative 0.038 ng/mL (0.000-0.055) WC-Daj-J-Type Natriuretic Peptide 2506 pg/mL (0-124) H Total Protein 7.0 g/dL (6.4-8.2) Albumin 3.4 g/dL (3.4-5.0) Albumin/Globulin Ratio 0.9 (1.0-1.7) L Laboratory Tests 09/28/19 08:23 Laboratory Tests 09/28/19 08:23 Vital Signs: Vital Signs Date Time Temp Pulse Resp B/P (MAP) Pulse Ox O2 Delivery O2 Flow Rate FiO2 09/28/19 11:43 84 20 174/73 (106) 94 Nasal Cannula 2.0 09/28/19 08:14 98.3 98.3 EKG: EKG: EKG was done at 816, heart rate 103 bpm, sinus tachycardia, no ST segment elevation. Radiology/Procedures: Radiology/Procedures: [facility] [address] [place], [place] [id number] IMAGING REPORT Signed PATIENT: RICKY LOPEZ ACCOUNT: [id number] : 1970 LOCATION: ER AGE: 49 SEX: M EXAM STATUS: REG ER ORD. PHYSICIAN: MICHELLE FERRER DO REASON: shortness of air, chest pain PROCEDURE: CT ANGIOGRAPHY CHEST Examination: CT angiography chest with IV contrast HISTORY: History of shortness of breath, chest pain COMPARISON: CT chest from 04/06/2018 TECHNIQUE: Axial CT angiography images were performed with IV contrast. Coronal and sagittal 3-D MIP reformats are performed Exposure: One or more of the following individualized dose reduction techniques were utilized for this examination: 1. Automated exposure control 2. Adjustment of the mA and/or kV according to patient size 3. Use of iterative reconstruction technique FINDINGS: The visualized thyroid gland grossly appears unremarkable. The central airways are patent. The caliber of the aorta grossly appears unremarkable. There is not enough contrast within the pulmonary artery and its branches for evaluation of pulmonary embolism. Bilateral lung emphysematous changes. Mild bibasilar lung airspace opacities likely atelectasis or infiltrates. There is a 1.4 cm calcified nodule identified in the right upper lobe of the lung similar to prior exam. The previously visualized groundglass lung nodule in the left upper lobe has resolved Mild decreased attenuation noted in the liver likely hepatic steatosis. The spleen, adrenals grossly appears unremarkable. No evidence of lytic bony destructive lesion. IMPRESSION: 1. Evaluation for pulmonary embolism is limited as there is not enough contrast within the pulmonary artery and its branches. 2. Unchanged 1.4 cm calcified nodule right upper lobe of the lung. 3. Bilateral lung emphysematous changes. Mild bibasilar lung airspace opacities likely atelectasis or infiltrates. Electronically signed by: Gagandeep Mejia MD (09/28/2019 12:27 PM) [id number] DICTATED and SIGNED BY: GAGANDEEP MEJIA MD DATE: 09/28/19 1227 Course & Med Decision Making: Course & Med Decision Making Pertinent Labs and Imaging studies reviewed. (See chart for details) Patient is a 49-year-old male who was seen in ER due to trouble breathing, patient has COPD exacerbation. Patient continued to have cellulitis of his lower extremities. Patient will be admitted to hospital for further evaluation and treatment. Dragon Disclaimer: Dragon Disclaimer: This electronic medical record was generated, in whole or in part, using a voice recognition dictation system. Departure Departure Impression: Primary Impression: COPD exacerbation Additional Impression: Bilateral cellulitis of lower leg Disposition: ADMITTED INPATIENT Admitting Physician: LOIDA (Dr. Donahue) Condition: STABLE Referrals: NO PCP (PCP) Justicifation of Admission Dx: Justifications for Admission: Justification of Admission Dx: Yes Acute COPD Exacerbation: Acute COPD Exacerbation MICHELLE FERRER DO Sep 28, 2019 13:39
[2019-09-28] MEDS ORDERED: ONDANSETRON PF 4 MG/2 ML VIAL. IV PRN (13:45)
[2019-09-28] MEDS ORDERED: VANCOMYCIN 2 GM in IV NORMAL SALINE 500ML BAG 500 ML IV ONE (14:00)
[2019-09-28 17:30] VITALS: BP 156/78
--- NOTE | 2019-09-28 17:33 | HP ---
ADMIT DATE: 09/28/2019 CHIEF COMPLAINT: Shortness of breath. HISTORY OF PRESENT ILLNESS: The patient is a pleasant middle-aged white male who smokes and he has COPD, presents with shortness of breath. I discussed the case with ER physician. It appears he has COPD. We are also going to rule out COVID-19. PAST MEDICAL HISTORY: COPD. ALLERGIES: None. FAMILY HISTORY: Diabetes. SOCIAL HISTORY: He still smokes. No drink or drugs. MEDICATIONS: Reviewed, please refer to the MRAD. REVIEW OF SYSTEMS: REVIEW OF SYSTEMS: GENERAL: No history of weight change, weakness or fevers. SKIN: No bruising, hair changes or rashes. EYES: No blurred, double or loss of vision. NOSE AND THROAT: No history of nosebleeds, hoarseness or sore throat. HEART: No history of palpitations, chest pain or shortness of breath on exertion. LUNGS: Denies cough, hemoptysis, wheezing or shortness of breath. GASTROINTESTINAL: Denies changes in appetite, nausea, vomiting, diarrhea or constipation. GENITOURINARY: No history of frequency, urgency, hesitancy or nocturia. NEUROLOGIC: Denies history of numbness, tingling, tremor or weakness. PSYCHIATRIC: No history of panic, anxiety or depression. ENDOCRINE: No history of heat or cold intolerance, polyuria or polydipsia. EXTREMITIES: Denies muscle weakness, joint pain, pain on walking or stiffness. PHYSICAL EXAMINATION: VITALS: Within normal limits and are stable. GENERAL: No apparent distress. Alert and oriented. HEENT: Normal cephalic atraumatic, external auditory canals are patent EYES: Extraocular muscles are intact, pupils are equally round and reactive to light and accommodation MUSCULOSKELETAL: Well developed, well nourished, good range of motion ENDOCRINE: No thyromegaly was palpated LYMPHATICS: No cervical chain or axillary nodes were noted HEMATOPOIETIC: No bruising NECK: Supple, no JVD, no thyromegaly was noted. LUNGS: He has decreased breath sounds. HEART: RRR, S1, S2 present. Peripheral pulses intact, no obvious murmurs were noted. ABDOMEN: Soft, nontender. Positive bowel sounds no organomegaly, normal bowel sounds. EXTREMITIES: Without any cyanosis, clubbing, or edema. Pedal pulses intact, Homans sign is negative. NEUROLOGIC: Normal speech, normal tone. A & O x3, moves all extremities, no obvious focal deficits. PSYCHIATRIC: Normal affect, normal mood. Stable. SKIN: No ulcerations or rashes, good skin turgor, no jaundice. VASCULAR: Good capillary refill, neurovascular bundle appears to be intact. ASSESSMENT AND PLAN: Chronic obstructive pulmonary disease exacerbation, respiratory failure, rule out COVID-19. The patient will be admitted. We are checking for COVID-19. Home meds, DVT prophylaxis, IV fluids, DuoNebs, oxygen. Consult Pulmonary. RON CHAMBERS DO DR: YOLA/joseline JOB#: [id number] / [id number]
--- NOTE | 2019-09-28 19:05 | NUR ---
Patient Juan Romero 49/M admitted due to COPD exacerbation, cellulitis, PUI arrived via gurney at 1700. He's awake, alert, oriented x4, denies pain. VSS. O2 sat 91% on RA, placed on O2 at 2LPM -sats at 92-94%. Patient placed on comfortable position, call light placed within reach.
[2019-09-28] MEDS: VANCOMYCIN PER PHARMACY MC PRN (19:22)
--- NOTE | 2019-09-28 19:24 | NUR ---
Pharmacy Vancomycin Dosing Note S: Consulted to monitor and dose vancomycin started . O: RICKY LOPEZ is a 49 year old M with Cellulitis, CAP. LABS: Last BUN: 16 Last Creatinine: 0.7 Creatinine Clearance: >100 mL/min Last WBC: 16.5 Tmax (past 24 hours): 98.3 Vancomycin Dosing: Dosing Weight: Actual Target Trough: 10-20 A: Based on: VANCO dosing guidelines P: 1. Begin Vancomycin 2000mg LOAD dose, then 1500 mg IV q8h 2. Follow up Trough level on 09/29/19 at 1330 3. Pharmacy will continue to monitor, follow and adjust therapy as needed. GOPAL ABAD [facility], 09/28/19 [id number]
[2019-09-28 19:45] VITALS: BP 153/81
[2019-09-28 23:35] VITALS: BP 158/80
[2019-09-28] MEDS: VANCOMYCIN 1.5 GM in IV NORMAL SALINE 500ML BAG 500 ML IV SCH (23:40)
[2019-09-29] VITALS (8 sets, daily range): BP systolic 141–180; BP diastolic 70–91
[2019-09-29] MEDS: VANCOMYCIN 1.5 GM in IV NORMAL SALINE 500ML BAG 500 ML IV SCH ×3 (06:10→22:09)
--- NOTE | 2019-09-29 10:47 | PDOC ---
PULMONARY PROGRESS NOTES Vitals Vital Signs Date Time Temp Pulse Resp B/P (MAP) Pulse Ox O2 Delivery O2 Flow Rate FiO2 09/29/19 08:00 Nasal Cannula 2.0 09/29/19 07:00 95.6 70 26 169/81 (110) 96 95.6 General: Alert, No acute distress Lungs: Clear Cardiovascular: S1 Abdomen: Soft Extremities: No Edema Labs Laboratory Tests Test 09/28/19 08:23 09/28/19 14:26 09/29/19 04:45 White Blood Count 16.5 x10^3/uL (4.0-11.0) Red Blood Count 4.11 x10^6/uL (4.30-5.70) Hemoglobin 12.8 g/dL (13.0-17.5) Hematocrit 38.0 % (39.0-53.0) Mean Corpuscular Volume 92 fL (79-100) Mean Corpuscular Hemoglobin 31 pg (25-35) Mean Corpuscular Hemoglobin Concent 34 g/dL (31-37) Red Cell Distribution Width 13.7 % (11.5-14.5) Platelet Count 292 x10^3/uL (140-400) Neutrophils (%) (Auto) 81 % (31-73) Lymphocytes (%) (Auto) 12 % (24-48) Monocytes (%) (Auto) 6 % (0-9) Eosinophils (%) (Auto) 0 % (0-3) Basophils (%) (Auto) 0 % (0-3) Neutrophils # (Auto) 13.4 x10^3/uL (1.8-7.7) Lymphocytes # (Auto) 2.0 x10^3/uL (1.0-4.8) Monocytes # (Auto) 1.0 x10^3/uL (0.0-1.1) Eosinophils # (Auto) 0.1 x10^3/uL (0.0-0.7) Basophils # (Auto) 0.0 x10^3/uL (0.0-0.2) Prothrombin Time 13.4 SEC (11.7-14.0) Prothromb Time International Ratio 1.1 (0.8-1.1) Activated Partial Thromboplast Time 24 SEC (24-38) Sodium Level 141 mmol/L (136-145) Potassium Level 3.8 mmol/L (3.5-5.1) Chloride Level 103 mmol/L (98-107) Carbon Dioxide Level 31 mmol/L (21-32) Anion Gap 7 (6-14) Blood Urea Nitrogen 16 mg/dL (8-26) Creatinine 0.7 mg/dL (0.7-1.3) Estimated GFR (Cockcroft-Gault) 120.4 BUN/Creatinine Ratio 23 (6-20) Glucose Level 107 mg/dL (70-99) Calcium Level 8.7 mg/dL (8.5-10.1) Magnesium Level 2.2 mg/dL (1.8-2.4) Total Bilirubin 0.1 mg/dL (0.2-1.0) Aspartate Amino Transf (AST/SGOT) 42 U/L (15-37) Alanine Aminotransferase (ALT/SGPT) 72 U/L (16-63) Alkaline Phosphatase 77 U/L (46-116) Troponin I Quantitative 0.038 ng/mL (0.000-0.055) QJ-Gjw-O-Type Natriuretic Peptide 2506 pg/mL (0-124) Total Protein 7.0 g/dL (6.4-8.2) Albumin 3.4 g/dL (3.4-5.0) Albumin/Globulin Ratio 0.9 (1.0-1.7) Coronavirus (COVID-19)(PCR) Not detected (NOT DETECT.) Procalcitonin < 0.10 ng/mL (0.00-0.10) Laboratory Tests Test 09/28/19 14:26 09/29/19 04:45 Coronavirus (COVID-19)(PCR) Not detected (NOT DETECT.) Procalcitonin < 0.10 ng/mL (0.00-0.10) Medications Active Scripts Medications Dose Route/Sig Max Daily Dose Days Date Category Dose Instructions Lasix (Furosemide) 20 Mg Tablet 1 Tab PO QODAY 09/17/18 Rx Doxycycline Hyclate 100 Mg Capsule 1 Cap PO BID 09/17/18 Rx Combivent Respimat Inhal (Ipratropium/Albuterol Sulfate) 4 Gm Aer.w.adap 1 Inh IH QID 09/17/18 Rx Prednisone (Prednisone) 10 Mg Tablet 10 Mg PO UD 09/17/18 Rx Take 4 tablets by mouth daily for 2 days, then take 3 tablets by mouth daily for 2 days, then take 2 tablets by mouth daily for 2 days, then take 1 tablets by mouth daily for 2 days, then stop. Impression . Full note dictated Okay to discharge later today or tomorrow morning, treat for acute exacerbation of COPD Repeat CT in [address] REPORT IMPRESSION: 1. Evaluation for pulmonary embolism is limited as there is not enough contrast within the pulmonary artery and its branches. 2. Unchanged 1.4 cm calcified nodule right upper lobe of the lung. 3. Bilateral lung emphysematous changes. Mild bibasilar lung airspace opacities likely atelectasis or infiltrates. JACLYN CHEW MD Sep 29, 2019 10:47
--- NOTE | 2019-09-29 11:24 | PDOC ---
[employer] PROGRESS NOTE Chief Complaint Chief Complaint Respiratory failure COPD Pulmonary nodule Hypertension Possible pneumonia Lower extremity cellulitis History of Present Illness History of Present Illness 09/29/2019 Patient seen and examined Discussed with RN Reviewed chart Clinically he is still short of breath and on O2 Vitals/I&O Vitals/I&O: Vital Signs Date Time Temp Pulse Resp B/P (MAP) Pulse Ox O2 Delivery O2 Flow Rate FiO2 09/29/19 08:00 Nasal Cannula 2.0 09/29/19 07:00 95.6 70 26 169/81 (110) 96 95.6 I & O 09/28/19 09/28/19 09/29/19 15:00 23:00 07:00 Intake Total 1140 ml 580 ml Output Total 500 ml 375 ml Balance -500 ml 1140 ml 205 ml Physical Exam General: Cooperative, mild distress Heart: Regular rate Lungs: Wheezing Abdomen: Normal bowel sounds Extremities: No clubbing Skin: Other (Lower extremity cellulitis) Labs Labs: Laboratory Tests Test 09/28/19 14:26 09/29/19 04:45 Coronavirus (COVID-19)(PCR) Not detected (NOT DETECT.) Procalcitonin < 0.10 ng/mL (0.00-0.10) Assessment and Plan Assessmemt and Plan Problems Medical Problems: (1) Bilateral cellulitis of lower leg Status: Acute (2) COPD exacerbation Status: Acute Respiratory failure COPD Pulmonary nodule Hypertension Possible pneumonia Lower extremity cellulitis Plan IV antibiotics Duo nebs Oxygen Await further pulmonary input DVT prophylaxis Full code Home meds Trend labs Comment Review of Relevant I have reviewed the following items anh (where applicable) has been applied. Medications: Current Medications Medications (Trade) Dose Ordered Sig/Narinder Route PRN Reason Start Time Stop Time Status Last Admin Dose Admin Vancomycin HCl (Vanco Per Pharmacy) 1 each PRN DAILY PRN MC SEE COMMENTS 09/28/19 13:45 09/28/19 19:22 Albuterol/ Ipratropium (Duoneb) 3 ml 1X ONCE NEB 09/28/19 13:45 09/28/19 13:48 DC 09/28/19 14:37 Vancomycin HCl 2 gm/Sodium Chloride 500 ml @ 250 mls/hr 1X ONCE IV 09/28/19 14:00 09/28/19 15:59 DC 09/28/19 14:03 Vancomycin HCl 1.5 gm/Sodium Chloride 500 ml @ 250 mls/hr Q8H IV 09/28/19 22:00 09/29/19 06:10 Justicifation of Admission Dx: Justifications for Admission: Justification of Admission Dx: Yes Acute COPD Exacerbation: Acute COPD Exacerbation RON CHAMBERS III DO Sep 29, 2019 11:24
--- NOTE | 2019-09-29 13:15 | CONS ---
DATE OF CONSULTATION: 09/29/2019 ATTENDING PHYSICIAN: Marcela Donahue DO CONSULTING PHYSICIAN: Jaclyn Chew MD REASON FOR CONSULTATION: The patient is seen in pulmonary consultation at the request of Dr. Donahue for increasing shortness of breath, abnormal CT chest. HISTORY OF PRESENT ILLNESS: The patient is a 49-year-old who has a history of COPD, tobacco dependent, presented with increasing shortness of breath over the last 2-3 days, unable to breathe and wheezing. He was recently admitted to [facility] for lower extremity cellulitis and was discharged home on some Keflex. He denies any exposures to COVID-19 patients. He had a CT chest, which I reviewed. There was basilar mild atelectasis, possible infiltrate. There was no change in the calcified pulmonary nodule that was seen back in 03/2018. The patient was due to follow up in the office, but unfortunately he does not have insurance coverage. He has been utilizing albuterol on as needed basis. PAST MEDICAL HISTORY: Ongoing tobacco abuse, COPD, coronary artery disease. PAST SURGICAL HISTORY: No recent major surgeries. ALLERGIES: No known drug allergies. SOCIAL HISTORY: He continues to smoke. FAMILY HISTORY: Noncontributory. No lung disorders. REVIEW OF SYSTEMS: As indicated above, otherwise other systems were reviewed and negative. PHYSICAL EXAMINATION: VITAL SIGNS: Stable. O2 saturation greater than 92%. HEENT: Eyes, the sclerae were nonicteric. NECK: Jugular venous distention was not elevated. No lymphadenopathy. CHEST: Full expansion. LUNGS: Adequate flow with no wheezes. CARDIOVASCULAR: Regular rate and rhythm with S1, S2, no S3. ABDOMEN: Soft, nontender, nondistended. EXTREMITIES: No clubbing, cyanosis or edema. NEUROLOGICAL: The patient was awake, alert, following commands. A detailed neuro exam was not performed. LABORATORY DATA: White count was slightly elevated. Hemoglobin and hematocrit were noted. Electrolytes were noted. BUN was noted. Serology for COVID-19 was negative. RADIOLOGICAL DATA: CT as indicated above. IMPRESSION: 1. Acute exacerbation of chronic obstructive pulmonary disease. 2. Tobacco dependence. 3. Abnormal CT reviewed. Calcified pulmonary nodule has not changed since a year ago, doubt that this is malignant. 4. Morbid obesity. 5. Lower extremity cellulitis recently treated at [facility]. PLAN: 1. Respiratory status is compensated. Possible discharge home later on today or tomorrow. Taper dose of prednisone. Continue antibiotics. 2. Recommend followup CT in 12 months. 3. The patient instructed on the importance of discontinuing tobacco use. JACLYN HCEW MD DR: MICHAEL/joseline JOB#: [id number] / [id number]
[2019-09-29] MEDS: amLODIPine BESYLATE 10 MG TABLET PO SCH (14:33)
[2019-09-29 14:49] LABS: VANC TR 14.1 mcg/mL (10.0-20.0)
[2019-09-29] MEDS: VANCOMYCIN PER PHARMACY MC PRN (14:56)
--- NOTE | 2019-09-29 14:58 | NUR ---
Pharmacy Vancomycin Dosing Note S:Consulted to monitor and dose vancomycin started 09/28/19. O:RICKY LOPEZ is a 49 year old M with Cellulitis . Height: 5 feet, 10 inches Weight: 112.354796 kg [place] Body Weight: 211.00 Adjusted Body Weight: 171.80 Dosing Weight: Actual Other Antibiotics: LABS: Last BUN: 16 Last Creatinine: 0.7 Creatinine Clearance: >100 mL/min Last WBC: 16.5 Last Procalcitonin: Tmax (past 24 hours): 95.6 L Microbiology: I/O: Drug Levels: Last Trough level: 14.1 on 09/29/19 at 1410 Last dose given 09/29/19 at 0610 Vancomycin Dosing: Loading Dose: 2000 mg x1 Dosing Weight: Actual Target Trough: 10-20 A: Based on: THERAPEUTIC LEVEL FOR INDICATION, P: 1. CONTINUE Vancomycin 1500 mg IV q8h 2. Follow up Trough level NEEDED 3. Pharmacy will continue to monitor, follow and adjust therapy as needed. MARIO MANZO [facility], 09/29/19 [id number]
[2019-09-29] MEDS ORDERED: NICOTINE 14MG PATCH. TD PRN (16:45)
[2019-09-29] MEDS ORDERED: oxyCODONE/APAP 5/325 1 TAB TABLET PO PRN (19:45)
[2019-09-29] MEDS: LACTOBACILLUS RHAMNOSUS GG 1 CAPSULE. PO SCH (20:23)
[2019-09-30 02:42] VITALS: BP 151/86
[2019-09-30 05:57] LABS: CREATININE 0.8 mg/dL (0.7-1.3); GFR 103.2
[2019-09-30] MEDS: VANCOMYCIN 1.5 GM in IV NORMAL SALINE 500ML BAG 500 ML IV SCH ×3 (06:24→14:00)
[2019-09-30 07:00] VITALS: BP 145/74
[2019-09-30] MEDS: LACTOBACILLUS RHAMNOSUS GG 1 CAPSULE. PO SCH (08:22)
[2019-09-30] MEDS: amLODIPine BESYLATE 10 MG TABLET PO SCH (08:23)
--- NOTE | 2019-09-30 10:24 | PDOC ---
PULMONARY PROGRESS NOTES Subjective Pt. is on N/C, reports he is feeling better today denies increased cough, reports SOB on exertion Vitals Vital Signs Date Time Temp Pulse Resp B/P (MAP) Pulse Ox O2 Delivery O2 Flow Rate FiO2 09/30/19 08:23 74 145/74 09/30/19 07:22 Nasal Cannula 2.0 09/30/19 07:00 97.8 18 94 97.8 ROS: No Nausea, No Chest Pain, No Abdominal Pain, No Increase Cough General: Alert, No acute distress Lungs: Other (diminshed bases ) Cardiovascular: S1 Abdomen: Soft, Other (obese ) Neuro Exam: Alert, Oriented Extremities: No Edema Skin: Warm, Dry Labs Laboratory Tests Test 09/28/19 14:26 09/29/19 04:45 09/29/19 14:10 09/30/19 04:26 Coronavirus (COVID-19)(PCR) Not detected (NOT DETECT.) Procalcitonin < 0.10 ng/mL (0.00-0.10) Vancomycin Level Trough 14.1 mcg/mL (10.0-20.0) Vancomycin Last Dose Date 09/29/19 Vancomycin Last Dose Time 0600 Creatinine 0.8 mg/dL (0.7-1.3) Estimated GFR (Cockcroft-Gault) 103.2 Laboratory Tests Test 09/29/19 14:10 09/30/19 04:26 Vancomycin Level Trough 14.1 mcg/mL (10.0-20.0) Vancomycin Last Dose Date 09/29/19 Vancomycin Last Dose Time 0600 Creatinine 0.8 mg/dL (0.7-1.3) Estimated GFR (Cockcroft-Gault) 103.2 Medications Active Scripts Medications Dose Route/Sig Max Daily Dose Days Date Category Dose Instructions Lasix (Furosemide) 20 Mg Tablet 1 Tab PO QODAY 09/17/18 Rx Doxycycline Hyclate 100 Mg Capsule 1 Cap PO BID 09/17/18 Rx Combivent Respimat Inhal (Ipratropium/Albuterol Sulfate) 4 Gm Aer.w.adap 1 Inh IH QID 09/17/18 Rx Prednisone (Prednisone) 10 Mg Tablet 10 Mg PO UD 09/17/18 Rx Take 4 tablets by mouth daily for 2 days, then take 3 tablets by mouth daily for 2 days, then take 2 tablets by mouth daily for 2 days, then take 1 tablets by mouth daily for 2 days, then stop. Comments CT Chest IMPRESSION: 1. Evaluation for pulmonary embolism is limited as there is not enough contrast within the pulmonary artery and its branches. 2. Unchanged 1.4 cm calcified nodule right upper lobe of the lung. 3. Bilateral lung emphysematous changes. Mild bibasilar lung airspace opacities likely atelectasis or infiltrates. Impression . IMPRESSION: 1. Acute exacerbation of chronic obstructive pulmonary disease. 2. Tobacco dependence. 3. Abnormal CT reviewed. Calcified pulmonary nodule has not changed since a year ago, doubt that this is malignant. 4. Morbid obesity. 5. Lower extremity cellulitis recently treated at [facility]. Plan . PLAN: Continue supplemental oxygen to keep sats above 92% Continue ABX Steroids and taper Recommend followup CT in 12 months. continued education on the importance of discontinuing tobacco use D/W JACLYN DE LEÓN MD Sep 30, 2019 10:24
[2019-09-30 11:00] VITALS: BP 134/72
[2019-09-30] MEDS: IPRATRPIUM/ALBUTEROL 0.5/2.5MG 3 ML NEBU. NEB SCH ×2 (11:41→15:20)
[2019-09-30] MEDS: VANCOMYCIN PER PHARMACY MC PRN (11:47)
--- NOTE | 2019-09-30 11:54 | PDOC ---
[employer] PROGRESS NOTE Chief Complaint Chief Complaint Respiratory failure COPD Pulmonary nodule Hypertension Possible pneumonia Lower extremity cellulitis History of Present Illness History of Present Illness 09/30/2019 Patient seen and examined Discussed with RN Chart reviewed 09/29/2019 Patient seen and examined Discussed with RN Reviewed chart Clinically he is still short of breath and on O2 Vitals/I&O Vitals/I&O: Vital Signs Date Time Temp Pulse Resp B/P (MAP) Pulse Ox O2 Delivery O2 Flow Rate FiO2 09/30/19 11:42 97 Nasal Cannula 2.0 09/30/19 11:00 97.9 75 18 134/72 (92) 97.9 I & O 09/29/19 09/29/19 09/30/19 15:00 23:00 07:00 Intake Total 470 ml 250 ml 360 ml Output Total 450 ml 200 ml 175 ml Balance 20 ml 50 ml 185 ml Physical Exam General: Cooperative, mild distress Heart: Regular rate Lungs: Other (diminshed bases ) Abdomen: Normal bowel sounds Extremities: No clubbing Skin: Other (Lower extremity cellulitis) Labs Labs: Laboratory Tests Test 09/29/19 14:10 09/30/19 04:26 Vancomycin Level Trough 14.1 mcg/mL (10.0-20.0) Vancomycin Last Dose Date 09/29/19 Vancomycin Last Dose Time 0600 Creatinine 0.8 mg/dL (0.7-1.3) Estimated GFR (Cockcroft-Gault) 103.2 Assessment and Plan Assessmemt and Plan Problems Medical Problems: (1) Bilateral cellulitis of lower leg Status: Acute (2) COPD exacerbation Status: AcuteRespiratory failure COPD Pulmonary nodule Hypertension Possible pneumonia Lower extremity cellulitis Plan Steroids O2 Antibiotics DVT prophylaxis Home meds Full code Per pulmonary please see below: 1. Acute exacerbation of chronic obstructive pulmonary disease. 2. Tobacco dependence. 3. Abnormal CT reviewed. Calcified pulmonary nodule has not changed since a year ago, doubt that this is malignant. 4. Morbid obesity. 5. Lower extremity cellulitis recently treated at [facility]. Plan Plan . PLAN: Continue supplemental oxygen to keep sats above 92% Continue ABX Steroids and taper Recommend followup CT in 12 months. continued education on the importance of discontinuing tobacco use Comment Review of Relevant I have reviewed the following items anh (where applicable) has been applied. Medications: Current Medications Medications (Trade) Dose Ordered Sig/Narinder Route PRN Reason Start Time Stop Time Status Last Admin Dose Admin Vancomycin HCl (Vancomycin Trough Level) 1 each 1X ONCE MC 09/29/19 13:30 09/29/19 13:31 DC 09/29/19 14:57 Amlodipine Besylate (Norvasc) 10 mg DAILY PO 09/29/19 12:45 09/30/19 08:23 Lactobacillus Rhamnosus (Culturelle) 1 cap BID PO 09/29/19 21:00 09/30/19 08:22 Oxycodone/ Acetaminophen (Percocet 5/325) 1 tab PRN Q4HRS PRN PO PAIN 09/29/19 19:45 09/29/19 20:23 Albuterol/ Ipratropium (Duoneb) 3 ml RTQID NEB 09/30/19 12:00 09/30/19 11:41 Justicifation of Admission Dx: Justifications for Admission: Justification of Admission Dx: Yes Acute COPD Exacerbation: Acute COPD Exacerbation RON CHAMBERS III DO Sep 30, 2019 11:54
[2019-09-30] MEDS ORDERED: PRED-220 PO (14:21)
[2019-09-30] MEDS ORDERED: VENTOLIN HFA18 GM INH (14:23)
[2019-09-30] MEDS ORDERED: AMLO10TA8 PO ×2 (14:26→14:27)
[2019-09-30 15:00] VITALS: BP 151/81
--- NOTE | 2019-09-30 16:20 | NUR ---
Discharge Note: REFUGIO LOPEZ [facility] Discharge instructions and discharge home medications reviewed with Patient and a copy given. All questions have been answered and understanding verbalized. The following instructions and handouts were given: Patient given education regarding new medications and follow up. Discontinued lines and drains: Iv removed per protocol. Patient discharged home, picked up by friends.
--- NOTE | 2019-10-01 11:30 | DS ---
DATE OF DISCHARGE: 09/30/2019 ADMISSION DIAGNOSES: Respiratory failure with chronic obstructive pulmonary disease exacerbation and cellulitis of the legs. DISCHARGE DIAGNOSIS: Resolving respiratory failure. HOSPITAL COURSE: The patient is a pleasant 49-year-old male who presented with COPD exacerbation. He was admitted. We gave him steroids, breathing treatments, oxygen, and antibiotics. We did wound care because he had some cellulitis. We consulted Pulmonary. Yesterday, I saw and examined him, he was at his baseline. I discussed the case with Dr. Cohen. Overall, the patient is at his baseline with plan to discharge to home with close outpatient followup. DISPOSITION: Home. ACTIVITY: As tolerated. DIET: Low sodium. MEDICATIONS: Please see the MRAD. TOTAL TIME: 31 minutes. RON CHAMBERS DO DR: YOLA/joseline JOB#: [id number] / [id number]
--- NOTE | 2019-10-02 15:45 | EKG ---
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
== END 2019-09-30 16:15 | disposition home or self-care (01) | DRG 190 ==
LOC: ER 08:02 → ED HOLD 13:40 → 6 SOUTH 14:43
PROVIDERS: ADMIT Internal Medicine; ATTEND Internal Medicine
DX: J44.1 Chronic obstructive pulmonary disease with (acute) exacerbation (principal); J96.90 Respiratory failure, unspecified, unspecified whether with hypoxia or hypercapnia; L03.115 Cellulitis of right lower limb; J98.11 Atelectasis; L03.116 Cellulitis of left lower limb; E66.01 Morbid (severe) obesity due to excess calories; F17.200 Nicotine dependence, unspecified, uncomplicated; I10 Essential (primary) hypertension; I25.10 Atherosclerotic heart disease of native coronary artery without angina pectoris; Z20.828 Contact with and (suspected) exposure to other viral communicable diseases; Z86.73 Personal history of transient ischemic attack (TIA), and cerebral infarction without residual deficits; Z83.3 Family history of diabetes mellitus; Z68.35 Body mass index [BMI] 35.0-35.9, adult
CPT/HCPCS: 36415; 71045; 71275; 80053; 80202; 82565; 83735; 83880; 84145; 84484; 85025; 85610; 85730; 93005; 94640; 94760; 96365; 96366; 96375; 99285; 99406; J2930; J3370; J7040; Q9967; G0378; U0003-CS

== ENCOUNTER 2019-10-08 14:26 | Inpatient (IN) | payer SELFPAY ==
[~2019-10-08] VITALS: Ht 177.8 cm; Wt 127.2 kg
[~2019-10-08 14:26] MED LIST changes: +AMLO10TA8 PO; +VENTOLIN HFA18 GM INH
[2019-10-08] MEDS ORDERED: methylPREDNISolone SOD SUCC PF 125 MG/2 ML VIAL. ONE (15:07)
[2019-10-08] MEDS ORDERED: methylPREDNISolone SOD SUCC PF 125 MG/2 ML VIAL. IV ONE (15:15)
[2019-10-08] MEDS ORDERED: IPRATRPIUM/ALBUTEROL 0.5/2.5MG 3 ML NEBU. NEB ONE (15:15)
[2019-10-08 15:27] LABS: BASO # 0.1 x10^3/uL (0.0-0.2); BASO % 1 % (0-3); EOS # 0.2 x10^3/uL (0.0-0.7); EOS % 1 % (0-3); HEMOGLOBIN 13.3 g/dL (13.0-17.5); LYMPH # 1.8 x10^3/uL (1.0-4.8); LYMPH % 9 % (24-48); MEAN CORPUSCULAR HEMOGLOBIN 31 pg (25-35); MEAN CORPUSCULAR HGB CONC 34 g/dL (31-37); MEAN CORPUSCULAR VOLUME 91 fL (79-100); MONO % 5 % (0-9); NEUT # 17.6 x10^3/uL (1.8-7.7); NEUT % 85 % (31-73); PLATELET COUNT 290 x10^3/uL (140-400); RED BLOOD COUNT 4.28 x10^6/uL (4.30-5.70); RED CELL DISTRIBUTION WIDTH 13.4 % (11.5-14.5); WHITE BLOOD COUNT 20.8 x10^3/uL (4.0-11.0)
--- NOTE | 2019-10-08 15:28 | PHYS DOC ---
Past Medical History Past Medical History: COPD, CVA, Hypertension, [place], Pneumonia (BENITO DAS APRN) Past Surgical History: Cholecystectomy (BENITO DAS APRN) Smoking Status: Current Every Day Smoker Alcohol Use: None Drug Use: None (BENITO DAS APRN) General Adult EDM: Chief Complaint: FEVER HPI: HPI: Patient is a 49 year old male who presents with complaints of shortness of alex th and productive cough that started last night prior to going to bed. Also complains of lower extremity swelling and redness. Patient states that he had a fever of 101.0 oral temp at home and took 1000 mg of Tylenol 2 hours ago prior to arrival to the ER today repeat temp in room was 98.5 oral temp. Patient states he has a history of COPD and emphysema, also states he still smokes cigarettes daily but denies drinking or doing illicit drugs. Patient states he was admitted here about a month ago for COPD exacerbation and lower extremity swelling with cellulitis was giving breathing treatments antibiotics he became better and was sent home. Although patient complains of fevers at home he denies chills, denies visual changes, he denies nasal congestion or sore throat, he does complain of a cough and producing thick yellow sputum, shortness of breath since last night. Patient denies chest pain, but complains of lower extremity bilateral edema with redness that he feels is returning cellulitis. Patient denies abdominal pain, nausea, vomiting, diarrhea, bloody stools, or constipation. Patient denies any problems urinating, denies problems with increased urination or increased thirst. Patient denies back pain or joint pains. Patient complains of red skin rash circumferential below his knees down to his ankles on bilateral lower extremities. Patient denies any headaches, focal weaknesses, or sensory changes. Patient denies any swelling of his glands, any depressions or anxieties, or any new life changes. Patient denies anyone in his home with the same symptoms. (BENITO DAS APRN) Review of Systems: Review of Systems: Constitutional: Complains of fever at home, denies chills. Eyes: Denies change in visual acuity. HENT: Denies nasal congestion or sore throat. Respiratory: Complains of cough with productive yellow sputum with shortness of breath. Cardiovascular: Denies chest pain, complains of lower extremity edema of both right and left leg. GI: Denies abdominal pain, nausea, vomiting, bloody stools or diarrhea or constipation. : Denies dysuria. Musculoskeletal: Denies back pain or joint pain. Integument: Complains of skin rash on both legs from knees down to ankles. Neurologic: Denies headache, focal weakness or sensory changes. Endocrine: Denies polyuria or polydipsia. Lymphatic: Denies swollen glands. Psychiatric: Denies depression or anxiety, or recent life changes. (BENITO DAS APRN) Heart Score: Risk Factors: Risk Factors: DM, Current or recent (<one month) smoker, HTN, HLP, family his tory of CAD, obesity. Risk Scores: Score 0 - 3: 2.5% MACE over next 6 weeks - Discharge Home Score 4 - 6: 20.3% MACE over next 6 weeks - Admit for Clinical Observation Score 7 - 10: 72.7% MACE over next 6 weeks - Early Invasive Strategies (BENITO DAS APRN) Family History: Family History: Patient denies family history related to this visit. (BENITO DAS APRN) Current Medications: Patient denies taking home medications. Current Medications Medications (Trade) Dose Ordered Sig/Narinder Start Time Stop Time Status Last Admin Dose Admin Albuterol/ Ipratropium (Duoneb) 3 ml 1X ONCE 10/08/19 15:15 10/08/19 15:18 DC Methylprednisolone Sodium Succinate (SOLU-Medrol 125MG VIAL) 125 mg 1X ONCE 10/08/19 15:15 10/08/19 15:18 DC (BENITO DAS APRN) Allergies: Allergies: Patient denies drug allergies. Allergies Coded Allergies Type Severity Reaction Last Updated Verified No Known Drug Allergies 09/29/15 No (BENITO DAS APRN) Physical Exam: PE: Constitutional: Well developed, well nourished, in moderate respiratory distress. HENT: Normocephalic, atraumatic, bilateral external ears normal, oropharynx moist, no oral exudates, nose normal. Eyes: PERRLA, EOMI, conjunctiva normal, no discharge. Pupils 3 mm. Neck: Normal range of motion, no tenderness, supple, no stridor. Cardiovascular:Heart rate regular rhythm, no murmur, heart sounds S1-S2, no abnormalities noted per auscultation. Lungs & Thorax: All lung ambrosio I/E Light Rales per auscultation. Abdomen: Bowel sounds normal, soft, no tenderness, no masses, no pulsatile masses. Skin: Warm, dry, bilateral lower extremities from just below knees to ankles erythematous full circumferential. Back: No tenderness, no CVA tenderness. Extremities: Tenderness to bilateral lower extremities below knees to ankle area with 3+ pitting edema, no cyanosis, no clubbing, ROM intact. Neurologic: Alert and oriented X 3, normal motor function, normal sensory function, no focal deficits noted. Psychologic: Affect normal, judgement normal, mood normal. (BENITO DAS APRN) EKG: EKG: EKG performed at 1446 shows normal sinus rhythm rate of 90 no STEMI noted EKG reviewed by ED attending Dr. Nguyen. (BENITO DAS APRN) Radiology/Procedures: Radiology/Procedures: PROCEDURE: PORTABLE CHEST 1V PORTABLE CHEST 1V History: Reason: SHORT OF BREATH breathing treatment 3:30 pt unqable to stand ER to change / Spl. Instructions: / History: Comparison: September 28, [address] Findings: No consolidation or pleural effusion. Normal heart size. No pneumothorax. Calcified right upper lung nodule, likely prior granulomatous disease. Impression: 1. No acute cardiopulmonary process. Electronically signed by: Tyrell Anderson DO (10/08/2019 4:26 PM) [facility] DICTATED and SIGNED BY: TYRELL ANDERSON DO DATE: 10/08/191625 (BENITO DAS APRN) Course & Med Decision Making: Course & Med Decision Making Pertinent Labs and Imaging studies reviewed. (See chart for details) 49-year-old male patient presents emergency department planing of a yellow sputum productive cough that started last night along with bilateral lower extr emity redness and swelling. Patient states he fears that he has an exacerbation of his COPD and cellulitis of his legs again. Patient states he was admitted over a month ago for the same thing. Patient also states that his temperature was 101.0 at home and took 1 g of Tylenol 2 hours prior to his arrival here. Patient's current temp in the emergency department was 98.5 oral. Patient's vital signs were reviewed, along with lab results and an x-ray which were concerning for exacerbation of COPD and lower extremity cellulitis. Patient states he is a pack-a-day smoker, denies drinking alcohol or using illicit drugs. Reviewed patient's presentation and case with Dr. Pressley who agreed to assume care and admit patient. Dr. Pressley recommended patient start vancomycin in the ER prior to admission to floor. Patient also will be tested for COVID19 under a PUI status. Discussed with patient admission to hospital patient was agreeable to this, patient had no further questions or concerns. (BENITO DAS APRN) Dragon Disclaimer: Dragon Disclaimer: This electronic medical record was generated, in whole or in part, using a voice recognition dictation system. (BENITO DAS APRN) Departure Departure Impression: Primary Impression: COPD exacerbation Additional Impressions: Hypoxia Leukocytosis Qualified Codes: D72.829 - Elevated white blood cell count, unspecified Person under investigation for COVID-19 Disposition: ADMITTED INPATIENT Admitting Physician: LOIDA (Dr. Pressley) (BENITO DAS APRN) Condition: GUARDED Referrals: NO PCP (PCP) Justicifation of Admission Dx: Justifications for Admission: Justification of Admission Dx: Yes Cellulitis: Cellulitis Acute COPD Exacerbation: Acute COPD Exacerbation Comments: PUI COVID-19 HYPOXIA (BENITO DAS APRN) Attending Signature Attending Signature I have reviewed the PA/MOLD WORKER's note and plan of care. I was available for consultation as needed during the patient's visit in the emergency department. I agree with the clinical impression, plan, and disposition. (BENITO NGUYEN DO) BENITO DAS APRN Oct 08, 2019 15:28 BENITO NGUYEN DO Oct 09, 2019 06:37
[2019-10-08 15:40] LABS: ALBUMIN 3.2 g/dL (3.4-5.0); ALBUMIN/GLOBULIN RATIO 0.8 (1.0-1.7); CALCIUM 8.7 mg/dL (8.5-10.1); CREATININE 0.7 mg/dL (0.7-1.3); GFR 120.4; TOTAL BILIRUBIN 0.3 mg/dL (0.2-1.0); TOTAL PROTEIN 7.2 g/dL (6.4-8.2)
[2019-10-08 15:48] LABS: BASE EXCESS COOX 4 mmol/L (-3-3); HCO3 COOX 31 mmol/L (21-28); METHEMOGLOBIN 0.4 % (0.0-1.9); OXYHEMOGLOBIN 86.2 %; PCO2 COOX 56 mmHg (35-46); PO2 COOX 58 mmHg (75-108); SAT O2 COOX 90 % (92-99)
[2019-10-08 15:49] LABS: POTASSIUM 2.8 mmol/L (3.5-5.1)
[2019-10-08] MEDS ORDERED: POTASSIUM CHLORIDE 20 MEQ TABLET.ER. PO ONE (16:15)
[2019-10-08 16:23] LABS: % BANDS 2 % (0-9); % BASOS 1 % (0-3); % EOS 1 % (0-5); % LYMPHS 13 % (24-48); % MONOS 6 % (0-10); % SEGS 77 % (35-66)
[2019-10-08 16:24] LABS: PLT ESTIMATE ADEQUATE (ADEQUATE)
[2019-10-08 16:25] LABS: TOXIC GRANULATION MOD
--- NOTE | 2019-10-08 16:29 | RAD ---
PORTABLE CHEST 1V History: Reason: SHORT OF BREATH breathing treatment 3:30 pt unqable to stand ER to change / Spl. Instructions: / History: Comparison: September 28, [address] Findings: No consolidation or pleural effusion. Normal heart size. No pneumothorax. Calcified right upper lung nodule, likely prior granulomatous disease. Impression: 1. No acute cardiopulmonary process. Electronically signed by: Tyrell Anderson DO (10/08/2019 4:26 PM) [facility]
[2019-10-08] MEDS ORDERED: VANCOMYCIN 2 GM in IV NORMAL SALINE 500ML BAG 500 ML IV ONE (18:30)
[2019-10-08 19:00] LABS: BILIRUBIN,URINE NEGATIVE (NEG); CLARITY,URINE CLEAR; COLOR,URINE YELLOW; NITRITE,URINE NEGATIVE (NEG); PROTEIN,URINE NEGATIVE (NEG-TRACE); UROBILINOGEN,URINE 0.2 mg/dL (0.2 mg/dL)
[2019-10-08 19:07] LABS: SQUAMOUS EPITHELIAL CELL,UR FEW /LPF
[2019-10-08 19:09] LABS: BACTERIA,URINE 0 /HPF (0-FEW); RBC,URINE 0 /HPF (0-2); WBC,URINE 0 /HPF (0-4)
[2019-10-08] MEDS ORDERED: fentaNYL PF VIAL 100 MCG/2 ML VIAL IVP ONE (19:15)
[2019-10-08] MEDS: VANCOMYCIN PER PHARMACY MC PRN (21:54)
--- NOTE | 2019-10-08 21:57 | NUR ---
Pharmacy Vancomycin Dosing Note S:Consulted to monitor and dose vancomycin started 10/08/19. O:RICKY LOPEZ is a 49 year old M with Cellulitis PUI COVID-19 . Height: 5 feet, 3 inches Weight: 127.2 kg [place] Body Weight: 56.90 Adjusted Body Weight: 85.02 Dosing Weight: Actual Other Antibiotics: LABS: Last BUN: 8 Last Creatinine: 0.7 Creatinine Clearance: >100 mL/min Last WBC: 20.8 Last Procalcitonin: Tmax (past 24 hours): Microbiology: I/O: Drug Levels: Last level: on at Last dose given at Vancomycin Dosing: Loading Dose: 2000 mg x1 10/08/19 1830 Dosing Weight: Actual Target Trough: 10-20 A: Based on: Actual Wt and CrCl P: 1. 10/09/19 0630 Vancomycin 2000 mg IV q12h 2. Follow up Trough level on 10/10/19 at 0600 3. Pharmacy will continue to monitor, follow and adjust therapy as needed. PIOTR SPRAGUE RPH, 10/08/[id number] Signed: 10/08/19 at 2158 by PIOTR SPRAGUE RPH PHA
[2019-10-08 23:19] VITALS: BP 140/69
[2019-10-09 03:00] VITALS: BP 127/72
[2019-10-09] MEDS ORDERED: ALBUTEROL SULFATE 8GM INHALER. INH PRN (04:15)
[2019-10-09] MEDS: VANCOMYCIN 2 GM in IV NORMAL SALINE 500ML BAG 500 ML IV SCH ×2 (06:30→21:34)
[2019-10-09 07:20] VITALS: BP 125/59
[2019-10-09 09:33] LABS: BASO # 0.1 x10^3/uL (0.0-0.2); BASO % 0 % (0-3); EOS % 0 % (0-3); HEMATOCRIT 40.8 % (39.0-53.0); HEMOGLOBIN 13.6 g/dL (13.0-17.5); LYMPH # 1.2 x10^3/uL (1.0-4.8); LYMPH % 6 % (24-48); MEAN CORPUSCULAR HEMOGLOBIN 31 pg (25-35); MEAN CORPUSCULAR HGB CONC 33 g/dL (31-37); MEAN CORPUSCULAR VOLUME 93 fL (79-100); MONO # 0.9 x10^3/uL (0.0-1.1); MONO % 5 % (0-9); NEUT # 17.5 x10^3/uL (1.8-7.7); NEUT % 89 % (31-73); PLATELET COUNT 303 x10^3/uL (140-400); RED BLOOD COUNT 4.41 x10^6/uL (4.30-5.70); RED CELL DISTRIBUTION WIDTH 13.5 % (11.5-14.5); WHITE BLOOD COUNT 19.8 x10^3/uL (4.0-11.0)
[2019-10-09 10:00] LABS: CALCIUM 8.9 mg/dL (8.5-10.1); CREATININE 0.7 mg/dL (0.7-1.3); GFR 120.4; POTASSIUM 3.4 mmol/L (3.5-5.1)
[2019-10-09] MEDS ORDERED: ACETAMINOPHEN 325 MG TABLET. PO PRN ×2 (10:15)
[2019-10-09] MEDS ORDERED: NICOTINE 14MG PATCH. TD PRN (10:45)
[2019-10-09] MEDS: POTASSIUM CHLORIDE 10MEQ 100 ML IV SCH ×4 (11:03→15:28)
[2019-10-09 11:09] VITALS: BP 143/76
[2019-10-09] MEDS: VANCOMYCIN PER PHARMACY MC PRN (11:58)
[2019-10-09] MEDS ORDERED: POTASSIUM CHLORIDE 20 MEQ TABLET.ER. PO ONE (12:00)
[2019-10-09] MEDS ORDERED: NICOTINE 7MG PATCH. TD SCH (14:00)
--- NOTE | 2019-10-09 14:24 | NUR ---
SW following. Spoke with RN and reviewed chart. Pt from home. Pt is self-pay and [facility] is following. Pt on 4l 02. Pt's has pending blood cultures. Pt is COVID pending. Pt on IV Vancomycin. SW to continue following.
[2019-10-09 15:10] VITALS: BP 138/71
--- NOTE | 2019-10-09 16:40 | PDOC ---
PULMONARY PROGRESS NOTES Vitals Vital Signs Date Time Temp Pulse Resp B/P (MAP) Pulse Ox O2 Delivery O2 Flow Rate FiO2 10/09/19 15:10 97.1 92 18 138/71 (93) 97 Nasal Cannula 97.1 10/09/19 08:00 3.0 General: Alert, No acute distress Lungs: Other Cardiovascular: S1 Abdomen: Soft, Other Extremities: No Edema Labs Laboratory Tests Test 10/08/19 14:53 10/08/19 15:30 10/08/19 18:50 10/09/19 08:30 White Blood Count 20.8 x10^3/uL (4.0-11.0) 19.8 x10^3/uL (4.0-11.0) Red Blood Count 4.28 x10^6/uL (4.30-5.70) 4.41 x10^6/uL (4.30-5.70) Hemoglobin 13.3 g/dL (13.0-17.5) 13.6 g/dL (13.0-17.5) Hematocrit 39.0 % (39.0-53.0) 40.8 % (39.0-53.0) Mean Corpuscular Volume 91 fL (79-100) 93 fL (79-100) Mean Corpuscular Hemoglobin 31 pg (25-35) 31 pg (25-35) Mean Corpuscular Hemoglobin Concent 34 g/dL (31-37) 33 g/dL (31-37) Red Cell Distribution Width 13.4 % (11.5-14.5) 13.5 % (11.5-14.5) Platelet Count 290 x10^3/uL (140-400) 303 x10^3/uL (140-400) Neutrophils (%) (Auto) 85 % (31-73) 89 % (31-73) Lymphocytes (%) (Auto) 9 % (24-48) 6 % (24-48) Monocytes (%) (Auto) 5 % (0-9) 5 % (0-9) Eosinophils (%) (Auto) 1 % (0-3) 0 % (0-3) Basophils (%) (Auto) 1 % (0-3) 0 % (0-3) Neutrophils # (Auto) 17.6 x10^3/uL (1.8-7.7) 17.5 x10^3/uL (1.8-7.7) Lymphocytes # (Auto) 1.8 x10^3/uL (1.0-4.8) 1.2 x10^3/uL (1.0-4.8) Monocytes # (Auto) 1.0 x10^3/uL (0.0-1.1) 0.9 x10^3/uL (0.0-1.1) Eosinophils # (Auto) 0.2 x10^3/uL (0.0-0.7) 0.0 x10^3/uL (0.0-0.7) Basophils # (Auto) 0.1 x10^3/uL (0.0-0.2) 0.1 x10^3/uL (0.0-0.2) Segmented Neutrophils % 77 % (35-66) Band Neutrophils % 2 % (0-9) Lymphocytes % 13 % (24-48) Monocytes % 6 % (0-10) Eosinophils % 1 % (0-5) Basophils % 1 % (0-3) Toxic Granulation Mod Platelet Estimate Adequate (ADEQUATE) Sodium Level 139 mmol/L (136-145) 142 mmol/L (136-145) Potassium Level 2.8 mmol/L (3.5-5.1) 3.4 mmol/L (3.5-5.1) Chloride Level 100 mmol/L (98-107) 101 mmol/L (98-107) Carbon Dioxide Level 33 mmol/L (21-32) 35 mmol/L (21-32) Anion Gap 6 (6-14) 6 (6-14) Blood Urea Nitrogen 8 mg/dL (8-26) 7 mg/dL (8-26) Creatinine 0.7 mg/dL (0.7-1.3) 0.7 mg/dL (0.7-1.3) Estimated GFR (Cockcroft-Gault) 120.4 120.4 BUN/Creatinine Ratio 11 (6-20) Glucose Level 129 mg/dL (70-99) 146 mg/dL (70-99) Calcium Level 8.7 mg/dL (8.5-10.1) 8.9 mg/dL (8.5-10.1) Total Bilirubin 0.3 mg/dL (0.2-1.0) Aspartate Amino Transf (AST/SGOT) 25 U/L (15-37) Alanine Aminotransferase (ALT/SGPT) 55 U/L (16-63) Alkaline Phosphatase 92 U/L (46-116) Creatine Kinase 170 U/L (39-308) Creatine Kinase MB (Mass) 2.5 ng/mL (0.0-3.6) Creatine Kinase MB Relative Index 1.5 % (0-4) Troponin I Quantitative < 0.017 ng/mL (0.000-0.055) ML-Cfp-U-Type Natriuretic Peptide 71 pg/mL (0-124) Total Protein 7.2 g/dL (6.4-8.2) Albumin 3.2 g/dL (3.4-5.0) Albumin/Globulin Ratio 0.8 (1.0-1.7) O2 Saturation 90 % (92-99) Arterial Blood pH 7.36 (7.35-7.45) Arterial Blood pCO2 at Patient Temp 56 mmHg (35-46) Arterial Blood pO2 at Patient Temp 58 mmHg (75-108) Arterial Blood HCO3 31 mmol/L (21-28) Arterial Blood Base Excess 4 mmol/L (-3-3) Oxyhemoglobin 86.2 % Methemoglobin 0.4 % (0.0-1.9) Carbon Monoxide, Quantitative 3.6 % (0.0-1.9) FiO2 1 lpm nc Urine Collection Type Void Urine Color Yellow Urine Clarity Clear Urine pH 6.0 (<5.0-8.0) Urine Specific [place] 1.015 (1.000-1.030) Urine Protein Negative mg/dL (NEG-TRACE) Urine Glucose (UA) Negative mg/dL (NEG) Urine Ketones (Stick) Negative mg/dL (NEG) Urine Blood Negative (NEG) Urine Nitrite Negative (NEG) Urine Bilirubin Negative (NEG) Urine Urobilinogen Dipstick 0.2 mg/dL (0.2 mg/dL) Urine Leukocyte Esterase Negative (NEG) Urine RBC 0 /HPF (0-2) Urine WBC 0 /HPF (0-4) Urine Squamous Epithelial Cells Few /LPF Urine Bacteria 0 /HPF (0-FEW) Urine Mucus Marked /LPF Laboratory Tests Test 10/08/19 18:50 10/09/19 08:30 Urine Collection Type Void Urine Color Yellow Urine Clarity Clear Urine pH 6.0 (<5.0-8.0) Urine Specific [place] 1.015 (1.000-1.030) Urine Protein Negative mg/dL (NEG-TRACE) Urine Glucose (UA) Negative mg/dL (NEG) Urine Ketones (Stick) Negative mg/dL (NEG) Urine Blood Negative (NEG) Urine Nitrite Negative (NEG) Urine Bilirubin Negative (NEG) Urine Urobilinogen Dipstick 0.2 mg/dL (0.2 mg/dL) Urine Leukocyte Esterase Negative (NEG) Urine RBC 0 /HPF (0-2) Urine WBC 0 /HPF (0-4) Urine Squamous Epithelial Cells Few /LPF Urine Bacteria 0 /HPF (0-FEW) Urine Mucus Marked /LPF White Blood Count 19.8 x10^3/uL (4.0-11.0) Red Blood Count 4.41 x10^6/uL (4.30-5.70) Hemoglobin 13.6 g/dL (13.0-17.5) Hematocrit 40.8 % (39.0-53.0) Mean Corpuscular Volume 93 fL (79-100) Mean Corpuscular Hemoglobin 31 pg (25-35) Mean Corpuscular Hemoglobin Concent 33 g/dL (31-37) Red Cell Distribution Width 13.5 % (11.5-14.5) Platelet Count 303 x10^3/uL (140-400) Neutrophils (%) (Auto) 89 % (31-73) Lymphocytes (%) (Auto) 6 % (24-48) Monocytes (%) (Auto) 5 % (0-9) Eosinophils (%) (Auto) 0 % (0-3) Basophils (%) (Auto) 0 % (0-3) Neutrophils # (Auto) 17.5 x10^3/uL (1.8-7.7) Lymphocytes # (Auto) 1.2 x10^3/uL (1.0-4.8) Monocytes # (Auto) 0.9 x10^3/uL (0.0-1.1) Eosinophils # (Auto) 0.0 x10^3/uL (0.0-0.7) Basophils # (Auto) 0.1 x10^3/uL (0.0-0.2) Sodium Level 142 mmol/L (136-145) Potassium Level 3.4 mmol/L (3.5-5.1) Chloride Level 101 mmol/L (98-107) Carbon Dioxide Level 35 mmol/L (21-32) Anion Gap 6 (6-14) Blood Urea Nitrogen 7 mg/dL (8-26) Creatinine 0.7 mg/dL (0.7-1.3) Estimated GFR (Cockcroft-Gault) 120.4 Glucose Level 146 mg/dL (70-99) Calcium Level 8.9 mg/dL (8.5-10.1) Medications Active Scripts Medications Dose Route/Sig Max Daily Dose Days Date Category Amlodipine Besylate 10 Mg Tablet 10 Mg PO DAILY 09/30/19 Reported Ventolin Hfa Inhaler (Albuterol Sulfate) 18 Gm Hfa.aer.ad 2 Puff INH QID PRN 09/30/19 Reported Impression . Full note dictated, acute exacerbation of COPD, see orders JACLYN CHEW MD Oct 09, 2019 16:40
[2019-10-09] MEDS ORDERED: predniSONE 10 MG TABLET PO ONE (17:00)
[2019-10-09 19:00] VITALS: BP 143/77
--- NOTE | 2019-10-09 19:26 | CONS ---
DATE OF CONSULTATION: 10/09/2019 ATTENDING PHYSICIAN: Sonido Pressley MD REASON FOR CONSULTATION: The patient seen in pulmonary consultation at the request of Dr. Pressley for increasing shortness of breath. HISTORY OF PRESENT ILLNESS: The patient is a 49-year-old who was recently here last month sometime and treated for acute exacerbation of COPD and lower extremity cellulitis, presented with increasing shortness of breath, increasing lower extremity edema, chest pain, cough, green sputum. He smokes. He also had a fever at home. He does not suspect he has been around anybody that he knows of that had COVID-19. The patient was admitted. I was asked to see him in consultation as x-ray revealed no acute infiltrates. White count was elevated. Electrolytes were noted. Potassium was low. Arterial blood gas revealed a pH of 7.36, PaCO2 56, pO2 of 58. REVIEW OF SYSTEMS: As indicated above, otherwise, a 10-point system was reviewed and negative. PAST MEDICAL HISTORY: COPD, CVA, hypertension, previous myocardial infarction, pneumonia, tobacco dependent. FAMILY HISTORY: Noncontributory. PHYSICAL EXAMINATION: GENERAL: The patient was in no respiratory distress. VITAL SIGNS: Stable. O2 saturation greater than 92%. He has been afebrile since admission, currently on 3 liters. HEENT: Eyes, the sclerae were nonicteric. NECK: Jugular venous distention was not elevated. No lymphadenopathy. CHEST: Full expansion. LUNGS: Slight wheezes and crackles. CARDIOVASCULAR: Regular rate and rhythm with S1, S2, no S3. ABDOMEN: Soft, tender, nondistended. EXTREMITIES: No clubbing or cyanosis. Some edema with erythema of the lower extremities. LABORATORY DATA: Labs were reviewed. IMAGING: Chest x-ray was reviewed. IMPRESSION: 1. Acute exacerbation of chronic obstructive pulmonary disease. 2. Tobacco dependence. 3. Lower extremity cellulitis. 4. Morbid obesity. 5. Fever. 6. SARS-CoV-2 Suspect. PLAN: 1. Continue current support with steroids. 2. Check SARS-CoV-2 by PCR. 3. Nicotine patch. 4. DVT prophylaxis. 5. The patient instructed on the importance of discontinuing tobacco use. JACLYN CHEW MD DR: MICHAEL/joseline JOB#: [id number] / [id number]
--- NOTE | 2019-10-09 19:39 | PDOC1 ---
History and Physical Date of Admission: Date of Admission DATE: 10/09/19 TIME: 19:31 Chief Complaint: Problems: (1) Hypoxia (2) COPD exacerbation (3) Person under investigation for COVID-19 (4) Leukocytosis (5) Pedal edema (6) Electrolyte abnormality Chief Complain: SOB, productive cough and lower extremity edema History of Present Illness: HPI: 49-year-old male with history of COPD, hypertension, and [place] presents with shortness of breath and productive cough and lower extremity that started last night. Patient states that he had a fever of 101.0 oral temp at home and took 1000 mg of Tylenol 2 hours ago prior to arrival to the ER today repeat temp in room was 98.5 oral temp. Patient states that he was recently discharged on 29 September after a COPD exacerbation and bilateral lower extremity cellulitis. Patient states that he does have report of new production of yellowish-green sputum. In the emergency department patient had a air saturation of 88% and he was subsequently placed on 4 L nasal cannula and titrated down to 1 L nasal cannula and is currently saturating at 99%. There are no exacerbating or alleviating factors. Denies headaches, chest pain, dysuria, syncope, diarrhea. Past Medical/Surgical History: PMH/PSH: COPD Hypertension CVA [place] History of cholecystectomy Allergies: Allergies: Coded Allergies: No Known Drug Allergies (Unverified , 09/29/15) Family History: Family History: None Social History: Social History: Smoking Status: Current Every Day Smoker Alcohol Use: None Drug Use: None Current Medications: Current Medications Current Medications Methylprednisolone Sodium Succinate (SOLU-Medrol 125MG VIAL) 125 mg STK-MED ONCE .ROUTE ; Start 10/08/19 at 15:07; Stop 10/08/19 at 15:08; Status DC Methylprednisolone Sodium Succinate (SOLU-Medrol 125MG VIAL) 125 mg 1X ONCE IV Last administered on 10/08/19at 15:15; Start 10/08/19 at 15:15; Stop 10/08/19 at 15:18; Status DC Albuterol/ Ipratropium (Duoneb) 3 ml 1X ONCE NEB Last administered on 10/08/19at 15:40; Start 10/08/19 at 15:15; Stop 10/08/19 at 15:18; Status DC Potassium Chloride (Klor-Con) 40 meq 1X ONCE PO Last administered on 10/08/19at 17:01; Start 10/08/19 at 16:15; Stop 10/08/19 at 16:18; Status DC Vancomycin HCl (Vanco Per Pharmacy) 1 each PRN DAILY PRN MC SEE COMMENTS Last administered on 10/09/19at 11:58; Start 10/08/19 at 18:30 Vancomycin HCl 2 gm/Sodium Chloride 500 ml @ 250 mls/hr 1X ONCE IV Last administered on 10/08/19at 18:27; Start 10/08/19 at 18:30; Stop 10/08/19 at 20:29; Status DC Fentanyl Citrate (Fentanyl 2ml Vial) 50 mcg 1X ONCE IVP Last administered on 10/08/19at 18:46; Start 10/08/19 at 19:15; Stop 10/08/19 at 19:16; Status DC Vancomycin HCl 2 gm/Sodium Chloride 500 ml @ 250 mls/hr Q12H IV Last administered on 10/09/19at 06:30; Start 10/09/19 at 06:30 Vancomycin HCl (Vancomycin Trough Level) 1 each 1X ONCE MC ; Start 10/10/19 at 06:00; Stop 10/10/19 at 06:01 Albuterol Sulfate (Ventolin Hfa) 2 puff PRN Q4HRS PRN INH SHORTNESS OF BREATH Last administered on 10/09/19at 17:17; Start 10/09/19 at 04:15 Acetaminophen (Tylenol) 650 mg PRN Q6HRS PRN PO FEVER > 100.5'F; Start 10/09/19 at 10:15; Status UNV Acetaminophen (Tylenol) 650 mg PRN Q6HRS PRN PO MILD PAIN / TEMP > 100.5'F; Start 10/09/19 at 10:15 Potassium Chloride/Water 100 ml @ 100 mls/hr Q1H IV Last administered on 10/09/19at 15:28; Start 10/09/19 at 11:00; Stop 10/09/19 at 14:59; Status DC Potassium Chloride (Klor-Con) 40 meq 1X ONCE PO Last administered on 10/09/19at 12:02; Start 10/09/19 at 12:00; Stop 10/09/19 at 12:01; Status DC Guaifenesin (Mucinex) 600 mg BID PO Last administered on 10/09/19at 11:04; Start 10/09/19 at 11:00 Nicotine (Nicoderm Cq 14mg) 1 patch PRN DAILY PRN TD SMOKING CESSATION; Start 10/09/19 at 10:45 Lactobacillus Rhamnosus (Culturelle) 1 cap BID PO ; Start 10/09/19 at 21:00 Nicotine (Nicoderm Cq 7mg) 1 patch DAILY TD ; Start 10/09/19 at 14:00; Stop 10/09/19 at 14:37; Status DC Prednisone (Prednisone) 40 mg DAILY PO ; Start 10/10/19 at 09:00 Prednisone (Prednisone) 30 mg 1X ONCE PO Last administered on 10/09/19at 17:17; Start 10/09/19 at 17:00; Stop 10/09/19 at 17:01; Status DC Doxycycline Hyclate (Vibra-Tab) 100 mg BID PO ; Start 10/09/19 at 21:00 Active Scripts Active Reported Amlodipine Besylate 10 Mg Tablet 10 Mg PO DAILY Ventolin Hfa Inhaler (Albuterol Sulfate) 18 Gm Hfa.aer.ad 2 Puff INH QID PRN ROS: Review of Systems Review of System REVIEW OF SYSTEMS: GENERAL: Denies weakness SKIN: No bruising, hair changes or rashes. EYES: No blurred, double or loss of vision. NOSE AND THROAT: No history of nosebleeds, hoarseness or sore throat. HEART: No history of palpitations, chest pain or shortness of breath on exertion. LUNGS: Denies cough, hemoptysis, wheezing or shortness of breath. GASTROINTESTINAL: Denies changes in appetite, nausea, vomiting, diarrhea or constipation. GENITOURINARY: No history of frequency, urgency, hesitancy or nocturia. NEUROLOGIC: Denies history of numbness, tingling, or tremor. PSYCHIATRIC: No history of panic, anxiety or depression. ENDOCRINE: No history of heat or cold intolerance, polyuria or polydipsia. EXTREMITIES: Denies joint pain, pain on walking or stiffness. Physical Exam: Vital Signs: Vital Signs Date Time Temp Pulse Resp B/P (MAP) Pulse Ox O2 Delivery O2 Flow Rate FiO2 10/09/19 15:10 97.1 92 18 138/71 (93) 97 Nasal Cannula 97.1 10/09/19 08:00 3.0 Physcial Exam: GEN: No apparent distress. Alert and oriented HEENT: Normal cephalic, atraumatic, external auditory canals are patent EYES: Extraocular muscles are intact, pupil are equally round and reactive to light and accommodation MUSCULOSKELETAL: Well developed , well nourished, good range of motion ENDOCRINE: No thyromegaly was palpated LYMPHATICS: No cervical chain or axillary nodes were noted HEMATOPOIETIC: No bruising NECK: Supple, no JVD, no thyromegaly was noted LUNGS: Bilateral crackles throughout all lung ambrosio HEART: RRR, S!, S2 present. Peripheral pulses intact, no obvious murmurs n oted ABDOMEN: Soft, nontender. Positive bowel sounds, no organomegaly, normal bowel sounds EXTREMITIES: Without clubbing, cyanosis, or edema. Pedal pulses intact. Negative Homans sign NEUROLOGIC: Normal speech and tone. A&O x 3, moves all extremities, no obvious focal deficits PSYCHIATRIC: Normal affect, normal mood. Stable SKIN: No ulcerations or rashes, good skin turgor, no jaundice VASCULAR: Good capillary refill, neurovascular bundle appears to be intact Labs: Labs: Laboratory Tests Test 10/08/19 14:53 10/08/19 15:30 10/08/19 18:50 10/09/19 08:30 White Blood Count 20.8 x10^3/uL (4.0-11.0) 19.8 x10^3/uL (4.0-11.0) Red Blood Count 4.28 x10^6/uL (4.30-5.70) 4.41 x10^6/uL (4.30-5.70) Hemoglobin 13.3 g/dL (13.0-17.5) 13.6 g/dL (13.0-17.5) Hematocrit 39.0 % (39.0-53.0) 40.8 % (39.0-53.0) Mean Corpuscular Volume 91 fL (79-100) 93 fL (79-100) Mean Corpuscular Hemoglobin 31 pg (25-35) 31 pg (25-35) Mean Corpuscular Hemoglobin Concent 34 g/dL (31-37) 33 g/dL (31-37) Red Cell Distribution Width 13.4 % (11.5-14.5) 13.5 % (11.5-14.5) Platelet Count 290 x10^3/uL (140-400) 303 x10^3/uL (140-400) Neutrophils (%) (Auto) 85 % (31-73) 89 % (31-73) Lymphocytes (%) (Auto) 9 % (24-48) 6 % (24-48) Monocytes (%) (Auto) 5 % (0-9) 5 % (0-9) Eosinophils (%) (Auto) 1 % (0-3) 0 % (0-3) Basophils (%) (Auto) 1 % (0-3) 0 % (0-3) Neutrophils # (Auto) 17.6 x10^3/uL (1.8-7.7) 17.5 x10^3/uL (1.8-7.7) Lymphocytes # (Auto) 1.8 x10^3/uL (1.0-4.8) 1.2 x10^3/uL (1.0-4.8) Monocytes # (Auto) 1.0 x10^3/uL (0.0-1.1) 0.9 x10^3/uL (0.0-1.1) Eosinophils # (Auto) 0.2 x10^3/uL (0.0-0.7) 0.0 x10^3/uL (0.0-0.7) Basophils # (Auto) 0.1 x10^3/uL (0.0-0.2) 0.1 x10^3/uL (0.0-0.2) Segmented Neutrophils % 77 % (35-66) Band Neutrophils % 2 % (0-9) Lymphocytes % 13 % (24-48) Monocytes % 6 % (0-10) Eosinophils % 1 % (0-5) Basophils % 1 % (0-3) Toxic Granulation Mod Platelet Estimate Adequate (ADEQUATE) Sodium Level 139 mmol/L (136-145) 142 mmol/L (136-145) Potassium Level 2.8 mmol/L (3.5-5.1) 3.4 mmol/L (3.5-5.1) Chloride Level 100 mmol/L (98-107) 101 mmol/L (98-107) Carbon Dioxide Level 33 mmol/L (21-32) 35 mmol/L (21-32) Anion Gap 6 (6-14) 6 (6-14) Blood Urea Nitrogen 8 mg/dL (8-26) 7 mg/dL (8-26) Creatinine 0.7 mg/dL (0.7-1.3) 0.7 mg/dL (0.7-1.3) Estimated GFR (Cockcroft-Gault) 120.4 120.4 BUN/Creatinine Ratio 11 (6-20) Glucose Level 129 mg/dL (70-99) 146 mg/dL (70-99) Calcium Level 8.7 mg/dL (8.5-10.1) 8.9 mg/dL (8.5-10.1) Total Bilirubin 0.3 mg/dL (0.2-1.0) Aspartate Amino Transf (AST/SGOT) 25 U/L (15-37) Alanine Aminotransferase (ALT/SGPT) 55 U/L (16-63) Alkaline Phosphatase 92 U/L (46-116) Creatine Kinase 170 U/L (39-308) Creatine Kinase MB (Mass) 2.5 ng/mL (0.0-3.6) Creatine Kinase MB Relative Index 1.5 % (0-4) Troponin I Quantitative < 0.017 ng/mL (0.000-0.055) FM-Uxs-N-Type Natriuretic Peptide 71 pg/mL (0-124) Total Protein 7.2 g/dL (6.4-8.2) Albumin 3.2 g/dL (3.4-5.0) Albumin/Globulin Ratio 0.8 (1.0-1.7) O2 Saturation 90 % (92-99) Arterial Blood pH 7.36 (7.35-7.45) Arterial Blood pCO2 at Patient Temp 56 mmHg (35-46) Arterial Blood pO2 at Patient Temp 58 mmHg (75-108) Arterial Blood HCO3 31 mmol/L (21-28) Arterial Blood Base Excess 4 mmol/L (-3-3) Oxyhemoglobin 86.2 % Methemoglobin 0.4 % (0.0-1.9) Carbon Monoxide, Quantitative 3.6 % (0.0-1.9) FiO2 1 lpm dc Urine Collection Type Void Urine Color Yellow Urine Clarity Clear Urine pH 6.0 (<5.0-8.0) Urine Specific [place] 1.015 (1.000-1.030) Urine Protein Negative mg/dL (NEG-TRACE) Urine Glucose (UA) Negative mg/dL (NEG) Urine Ketones (Stick) Negative mg/dL (NEG) Urine Blood Negative (NEG) Urine Nitrite Negative (NEG) Urine Bilirubin Negative (NEG) Urine Urobilinogen Dipstick 0.2 mg/dL (0.2 mg/dL) Urine Leukocyte Esterase Negative (NEG) Urine RBC 0 /HPF (0-2) Urine WBC 0 /HPF (0-4) Urine Squamous Epithelial Cells Few /LPF Urine Bacteria 0 /HPF (0-FEW) Urine Mucus Marked /LPF Laboratory Tests Test 10/09/19 08:30 White Blood Count 19.8 x10^3/uL (4.0-11.0) Red Blood Count 4.41 x10^6/uL (4.30-5.70) Hemoglobin 13.6 g/dL (13.0-17.5) Hematocrit 40.8 % (39.0-53.0) Mean Corpuscular Volume 93 fL (79-100) Mean Corpuscular Hemoglobin 31 pg (25-35) Mean Corpuscular Hemoglobin Concent 33 g/dL (31-37) Red Cell Distribution Width 13.5 % (11.5-14.5) Platelet Count 303 x10^3/uL (140-400) Neutrophils (%) (Auto) 89 % (31-73) Lymphocytes (%) (Auto) 6 % (24-48) Monocytes (%) (Auto) 5 % (0-9) Eosinophils (%) (Auto) 0 % (0-3) Basophils (%) (Auto) 0 % (0-3) Neutrophils # (Auto) 17.5 x10^3/uL (1.8-7.7) Lymphocytes # (Auto) 1.2 x10^3/uL (1.0-4.8) Monocytes # (Auto) 0.9 x10^3/uL (0.0-1.1) Eosinophils # (Auto) 0.0 x10^3/uL (0.0-0.7) Basophils # (Auto) 0.1 x10^3/uL (0.0-0.2) Sodium Level 142 mmol/L (136-145) Potassium Level 3.4 mmol/L (3.5-5.1) Chloride Level 101 mmol/L (98-107) Carbon Dioxide Level 35 mmol/L (21-32) Anion Gap 6 (6-14) Blood Urea Nitrogen 7 mg/dL (8-26) Creatinine 0.7 mg/dL (0.7-1.3) Estimated GFR (Cockcroft-Gault) 120.4 Glucose Level 146 mg/dL (70-99) Calcium Level 8.9 mg/dL (8.5-10.1) Assessment/Plan Assessment/Plan 49-year-old male admitted for COPD exacerbation and rule out COVID Continue oxygen therapy Pending pulmonary evaluation and await their recommendations Consult at least 15 minutes for smoking cessation. Patient refused nicotine patch at this time Replace potassium per protocol Continue empiric antibiotics Pending blood cultures Justicifation of Admission Dx: Justifications for Admission: Justification of Admission Dx: Yes Cellulitis: Cellulitis Acute COPD Exacerbation: Acute COPD Exacerbation LISA SAL MD Oct 09, 2019 19:39
[2019-10-09] MEDS: DOXYCYCLINE HYCLATE 100 MG TABLET PO SCH (21:34)
[2019-10-09] MEDS: LACTOBACILLUS RHAMNOSUS GG 1 CAPSULE. PO SCH (21:35)
[2019-10-09 23:00] VITALS: BP 159/93
[2019-10-10 07:00] VITALS: BP 123/75
--- NOTE | 2019-10-10 09:14 | PDOC ---
PULMONARY PROGRESS NOTES Subjective Patient feels better less short of air continue wheeze and cough Vitals Vital Signs Date Time Temp Pulse Resp B/P (MAP) Pulse Ox O2 Delivery O2 Flow Rate FiO2 10/10/19 07:00 97.7 86 20 123/75 (91) 95 Nasal Cannula 2.0 97.7 ROS: No Nausea, No Chest Pain, No Abdominal Pain General: Alert, No acute distress Lungs: Wheezing, Other Cardiovascular: S1 Abdomen: Soft, Non-tender, Other Neuro Exam: Alert Extremities: No Edema Skin: Warm Labs Laboratory Tests Test 10/08/19 14:53 10/08/19 14:55 10/08/19 15:30 10/08/19 18:50 White Blood Count 20.8 x10^3/uL (4.0-11.0) Red Blood Count 4.28 x10^6/uL (4.30-5.70) Hemoglobin 13.3 g/dL (13.0-17.5) Hematocrit 39.0 % (39.0-53.0) Mean Corpuscular Volume 91 fL (79-100) Mean Corpuscular Hemoglobin 31 pg (25-35) Mean Corpuscular Hemoglobin Concent 34 g/dL (31-37) Red Cell Distribution Width 13.4 % (11.5-14.5) Platelet Count 290 x10^3/uL (140-400) Neutrophils (%) (Auto) 85 % (31-73) Lymphocytes (%) (Auto) 9 % (24-48) Monocytes (%) (Auto) 5 % (0-9) Eosinophils (%) (Auto) 1 % (0-3) Basophils (%) (Auto) 1 % (0-3) Neutrophils # (Auto) 17.6 x10^3/uL (1.8-7.7) Lymphocytes # (Auto) 1.8 x10^3/uL (1.0-4.8) Monocytes # (Auto) 1.0 x10^3/uL (0.0-1.1) Eosinophils # (Auto) 0.2 x10^3/uL (0.0-0.7) Basophils # (Auto) 0.1 x10^3/uL (0.0-0.2) Segmented Neutrophils % 77 % (35-66) Band Neutrophils % 2 % (0-9) Lymphocytes % 13 % (24-48) Monocytes % 6 % (0-10) Eosinophils % 1 % (0-5) Basophils % 1 % (0-3) Toxic Granulation Mod Platelet Estimate Adequate (ADEQUATE) Sodium Level 139 mmol/L (136-145) Potassium Level 2.8 mmol/L (3.5-5.1) Chloride Level 100 mmol/L (98-107) Carbon Dioxide Level 33 mmol/L (21-32) Anion Gap 6 (6-14) Blood Urea Nitrogen 8 mg/dL (8-26) Creatinine 0.7 mg/dL (0.7-1.3) Estimated GFR (Cockcroft-Gault) 120.4 BUN/Creatinine Ratio 11 (6-20) Glucose Level 129 mg/dL (70-99) Calcium Level 8.7 mg/dL (8.5-10.1) Total Bilirubin 0.3 mg/dL (0.2-1.0) Aspartate Amino Transf (AST/SGOT) 25 U/L (15-37) Alanine Aminotransferase (ALT/SGPT) 55 U/L (16-63) Alkaline Phosphatase 92 U/L (46-116) Creatine Kinase 170 U/L (39-308) Creatine Kinase MB (Mass) 2.5 ng/mL (0.0-3.6) Creatine Kinase MB Relative Index 1.5 % (0-4) Troponin I Quantitative < 0.017 ng/mL (0.000-0.055) WT-Gcu-K-Type Natriuretic Peptide 71 pg/mL (0-124) Total Protein 7.2 g/dL (6.4-8.2) Albumin 3.2 g/dL (3.4-5.0) Albumin/Globulin Ratio 0.8 (1.0-1.7) Coronavirus (PCR) Not detected (Not Detected) O2 Saturation 90 % (92-99) Arterial Blood pH 7.36 (7.35-7.45) Arterial Blood pCO2 at Patient Temp 56 mmHg (35-46) Arterial Blood pO2 at Patient Temp 58 mmHg (75-108) Arterial Blood HCO3 31 mmol/L (21-28) Arterial Blood Base Excess 4 mmol/L (-3-3) Oxyhemoglobin 86.2 % Methemoglobin 0.4 % (0.0-1.9) Carbon Monoxide, Quantitative 3.6 % (0.0-1.9) FiO2 1 lpm nc Urine Collection Type Void Urine Color Yellow Urine Clarity Clear Urine pH 6.0 (<5.0-8.0) Urine Specific [place] 1.015 (1.000-1.030) Urine Protein Negative mg/dL (NEG-TRACE) Urine Glucose (UA) Negative mg/dL (NEG) Urine Ketones (Stick) Negative mg/dL (NEG) Urine Blood Negative (NEG) Urine Nitrite Negative (NEG) Urine Bilirubin Negative (NEG) Urine Urobilinogen Dipstick 0.2 mg/dL (0.2 mg/dL) Urine Leukocyte Esterase Negative (NEG) Urine RBC 0 /HPF (0-2) Urine WBC 0 /HPF (0-4) Urine Squamous Epithelial Cells Few /LPF Urine Bacteria 0 /HPF (0-FEW) Urine Mucus Marked /LPF Test 10/09/19 08:30 White Blood Count 19.8 x10^3/uL (4.0-11.0) Red Blood Count 4.41 x10^6/uL (4.30-5.70) Hemoglobin 13.6 g/dL (13.0-17.5) Hematocrit 40.8 % (39.0-53.0) Mean Corpuscular Volume 93 fL (79-100) Mean Corpuscular Hemoglobin 31 pg (25-35) Mean Corpuscular Hemoglobin Concent 33 g/dL (31-37) Red Cell Distribution Width 13.5 % (11.5-14.5) Platelet Count 303 x10^3/uL (140-400) Neutrophils (%) (Auto) 89 % (31-73) Lymphocytes (%) (Auto) 6 % (24-48) Monocytes (%) (Auto) 5 % (0-9) Eosinophils (%) (Auto) 0 % (0-3) Basophils (%) (Auto) 0 % (0-3) Neutrophils # (Auto) 17.5 x10^3/uL (1.8-7.7) Lymphocytes # (Auto) 1.2 x10^3/uL (1.0-4.8) Monocytes # (Auto) 0.9 x10^3/uL (0.0-1.1) Eosinophils # (Auto) 0.0 x10^3/uL (0.0-0.7) Basophils # (Auto) 0.1 x10^3/uL (0.0-0.2) Sodium Level 142 mmol/L (136-145) Potassium Level 3.4 mmol/L (3.5-5.1) Chloride Level 101 mmol/L (98-107) Carbon Dioxide Level 35 mmol/L (21-32) Anion Gap 6 (6-14) Blood Urea Nitrogen 7 mg/dL (8-26) Creatinine 0.7 mg/dL (0.7-1.3) Estimated GFR (Cockcroft-Gault) 120.4 Glucose Level 146 mg/dL (70-99) Calcium Level 8.9 mg/dL (8.5-10.1) Medications Active Scripts Medications Dose Route/Sig Max Daily Dose Days Date Category Amlodipine Besylate 10 Mg Tablet 10 Mg PO DAILY 09/30/19 Reported Ventolin Hfa Inhaler (Albuterol Sulfate) 18 Gm Hfa.aer.ad 2 Puff INH QID PRN 09/30/19 Reported Impression . IMPRESSION: 1. Acute exacerbation of chronic obstructive pulmonary disease. 2. Tobacco dependence. 3. Lower extremity cellulitis. 4. Morbid obesity. 5. Fever. 6. SARS-CoV-2 negative Plan . Continue support Possible discharge 10/10 on oral antibiotics prednisone taper JACLYN CHEW MD Oct 10, 2019 09:14
[2019-10-10] MEDS: predniSONE 20 MG TABLET PO SCH (09:21)
[2019-10-10] MEDS: LACTOBACILLUS RHAMNOSUS GG 1 CAPSULE. PO SCH ×2 (09:21→21:03)
[2019-10-10] MEDS: DOXYCYCLINE HYCLATE 100 MG TABLET PO SCH ×2 (09:21→21:03)
[2019-10-10 09:59] LABS: BASO # 0.1 x10^3/uL (0.0-0.2); BASO % 0 % (0-3); EOS # 0.1 x10^3/uL (0.0-0.7); EOS % 1 % (0-3); HEMATOCRIT 38.6 % (39.0-53.0); HEMOGLOBIN 12.7 g/dL (13.0-17.5); LYMPH % 13 % (24-48); MEAN CORPUSCULAR HEMOGLOBIN 31 pg (25-35); MEAN CORPUSCULAR HGB CONC 33 g/dL (31-37); MEAN CORPUSCULAR VOLUME 93 fL (79-100); MONO # 0.8 x10^3/uL (0.0-1.1); MONO % 5 % (0-9); NEUT # 12.3 x10^3/uL (1.8-7.7); NEUT % 81 % (31-73); PLATELET COUNT 262 x10^3/uL (140-400); RED BLOOD COUNT 4.14 x10^6/uL (4.30-5.70); RED CELL DISTRIBUTION WIDTH 13.5 % (11.5-14.5); WHITE BLOOD COUNT 15.3 x10^3/uL (4.0-11.0)
[2019-10-10 10:50] LABS: CALCIUM 8.8 mg/dL (8.5-10.1); CREATININE 0.6 mg/dL (0.7-1.3); GFR 143.8; MAGNESIUM 2.1 mg/dL (1.8-2.4); PHOSPHORUS 2.4 mg/dL (2.6-4.7)
[2019-10-10 11:00] VITALS: BP 150/64
[2019-10-10 11:02] LABS: VANC TR 9.7 mcg/mL (10.0-20.0)
[2019-10-10] MEDS: VANCOMYCIN PER PHARMACY MC PRN (11:20)
--- NOTE | 2019-10-10 11:22 | NUR ---
Pharmacy Vancomycin Dosing Note S: Consulted to monitor and dose vancomycin started 10/08/19. O: RICKY LOPEZ is a 49 year old M with Cellulitis Other Antibiotics: NONE LABS: Last BUN: 8 Last Creatinine: 0.6 Creatinine Clearance: >100 mL/min Last WBC: 15.3 Last Procalcitonin: Tmax (past 24 hours): 97.6 Microbiology: BLOOD: NGTD I/O: Drug Levels: Last Trough level: 9.7 on 10/10/19 at 0850 Last dose given 10/09/19 at 2134 Vancomycin Dosing: Dosing Weight: Actual Target Trough: 10-20 A: Based on: TROUGH P: 1. Continue Vancomycin 2000 mg IV q12h 2. Follow up Trough level in one week if vanco continues 3. Pharmacy will continue to monitor, follow and adjust therapy as needed. Faina Green RPH, 10/10/19 1122
[2019-10-10] MEDS: VANCOMYCIN 2 GM in IV NORMAL SALINE 500ML BAG 500 ML IV SCH ×2 (11:34→21:04)
--- NOTE | 2019-10-10 12:48 | NUR ---
SW following. Spoke with RN and CM and reviewed chart. Spoke with Dr. Armstrong and pt not ready for discharge. Pt from home. Pt is self-pay and [facility] is following. Pt down to 2l 02. Pt remains on IV Vancomycin. SW to continue following. Addendum: 10/11/19 at 1333 by KYLER LADD Pt is homeless
[2019-10-10 15:00] VITALS: BP 152/82
--- NOTE | 2019-10-10 16:55 | PDOC ---
[facility] PROGRESS NOTE Chief Complaint Chief Complaint Shortness of breath History of Present Illness History of Present Illness 49-year-old male with history of COPD, hypertension, and [place] presents with shortness of breath and productive cough and lower extremity that started last night. Patient states that he had a fever of 101.0 oral temp at home and took 1000 mg of Tylenol 2 hours ago prior to arrival to the ER today repeat temp in room was 98.5 oral temp. Patient states that he was recently discharged on 29 September after a COPD exacerbation and bilateral lower extremity cellulitis. Patient states that he does have report of new production of yellowish-green sputum. In the emergency department patient had a air saturation of 88% and he was subsequently placed on 4 L nasal cannula and titrated down to 1 L nasal cannula and is currently saturating at 99%. There are no exacerbating or alleviating factors. Denies headaches, chest pain, dysuria, syncope, diarrhea. 10/10/2019 Patient seen and examined at bedside today. Patient appears to be more comfortable compared to yesterday. Patient does use inhalers at home however we are not able to use nebulizer treatments in the COVID unit. Patient is ambulating and talking without use of accessory muscles at this time. Pulmonary is following. Afebrile no acute events overnight. Vitals/I&O Vitals/I&O: Vital Signs Date Time Temp Pulse Resp B/P (MAP) Pulse Ox O2 Delivery O2 Flow Rate FiO2 10/10/19 15:00 98.1 80 18 152/82 (105) 92 Nasal Cannula 2.0 98.1 I & O 10/09/19 10/09/19 10/10/19 15:00 23:00 07:00 Intake Total 500 ml Output Total 275 ml 375 ml 400 ml Balance 225 ml -375 ml -400 ml Physical Exam Physical Exam: GENERAL: Patient is alert and awake. NAD HEENT: Moist mucous membranes. No scleral icterus or obvious cervical lymphadenopathy CV: RRR. No murmurs rubs or gallops. Unable to appreciate S3 or S4 PULM: Bilaterally wheezing has improved ABD: Soft and nondistended on visualization and palpation. Normoactive bowel sounds heard. EXTREMITIES: No pedal edema seen. No warmth or tenderness upon touch. NEURO: Full ROM in all extremities. normal strength on upper extremities. Lungs: Wheezing, Other Labs Labs: Laboratory Tests Test 10/10/19 08:50 White Blood Count 15.3 x10^3/uL (4.0-11.0) Red Blood Count 4.14 x10^6/uL (4.30-5.70) Hemoglobin 12.7 g/dL (13.0-17.5) Hematocrit 38.6 % (39.0-53.0) Mean Corpuscular Volume 93 fL (79-100) Mean Corpuscular Hemoglobin 31 pg (25-35) Mean Corpuscular Hemoglobin Concent 33 g/dL (31-37) Red Cell Distribution Width 13.5 % (11.5-14.5) Platelet Count 262 x10^3/uL (140-400) Neutrophils (%) (Auto) 81 % (31-73) Lymphocytes (%) (Auto) 13 % (24-48) Monocytes (%) (Auto) 5 % (0-9) Eosinophils (%) (Auto) 1 % (0-3) Basophils (%) (Auto) 0 % (0-3) Neutrophils # (Auto) 12.3 x10^3/uL (1.8-7.7) Lymphocytes # (Auto) 2.0 x10^3/uL (1.0-4.8) Monocytes # (Auto) 0.8 x10^3/uL (0.0-1.1) Eosinophils # (Auto) 0.1 x10^3/uL (0.0-0.7) Basophils # (Auto) 0.1 x10^3/uL (0.0-0.2) Sodium Level 144 mmol/L (136-145) Potassium Level 4.0 mmol/L (3.5-5.1) Chloride Level 103 mmol/L (98-107) Carbon Dioxide Level 34 mmol/L (21-32) Anion Gap 7 (6-14) Blood Urea Nitrogen 8 mg/dL (8-26) Creatinine 0.6 mg/dL (0.7-1.3) Estimated GFR (Cockcroft-Gault) 143.8 Glucose Level 143 mg/dL (70-99) Calcium Level 8.8 mg/dL (8.5-10.1) Phosphorus Level 2.4 mg/dL (2.6-4.7) Magnesium Level 2.1 mg/dL (1.8-2.4) Vancomycin Level Trough 9.7 mcg/mL (10.0-20.0) Vancomycin Last Dose Date 10/09/19 Vancomycin Last Dose Time 2100 Review of Systems Review of Systems: CONSTITUIONAL: Denies weight loss, fever and chills. HEENT: Denies changes in vision and hearing. RESPIRATORY: Denies SOB and cough. CV: Denies palpitations and CP. GI: Denies abdominal pain, nausea, vomiting and diarrhea. : Denies dysuria and urinary frequency. MSK: Denies myalgia and joint pain. SKIN: Denies rash and pruritus. NEUROLOGICAL: Denies headache and syncope. PSYCHIATRIC: Denies recent changes in mood. Denies anxiety and depression. Assessment and Plan Assessmemt and Plan Acute COPD exacerbation Acute hypoxic respiratory distress Normocytic anemia Acute electrolyte derangements improved Morbid obesity Tobacco abuse Continued with IV Solu-Medrol, will transition to p.o. prednisone taper Continue IV antibiotics and change to p.o. antibiotics tomorrow Continue O2 therapy as needed to maintain O2 sats between 88 to 92% Counseled on smoking cessation Counseled on weight loss via diet and exercise Comment Review of Relevant I have reviewed the following items anh (where applicable) has been applied. Medications: Current Medications Medications (Trade) Dose Ordered Sig/Narinder Route PRN Reason Start Time Stop Time Status Last Admin Dose Admin Vancomycin HCl (Vancomycin Trough Level) 1 each 1X ONCE 10/10/19 08:30 10/10/19 08:31 DC 10/10/19 08:12 Lactobacillus Rhamnosus (Culturelle) 1 cap BID PO 10/09/19 21:00 10/10/19 09:21 Prednisone (Prednisone) 40 mg DAILY PO 10/10/19 09:00 10/10/19 09:21 Prednisone (Prednisone) 30 mg 1X ONCE PO 10/09/19 17:00 10/09/19 17:01 DC 10/09/19 17:17 Doxycycline Hyclate (Vibra-Tab) 100 mg BID PO 10/09/19 21:00 10/10/19 09:21 Justicifation of Admission Dx: Justifications for Admission: Justification of Admission Dx: Yes Cellulitis: Cellulitis Acute COPD Exacerbation: Acute COPD Exacerbation LISA SAL MD Oct 10, 2019 16:55
[2019-10-10 19:14] VITALS: BP 169/76
[2019-10-10] MEDS ORDERED: ALBUTEROL SULFATE 2.5 MG/3 ML NEBU. NEB PRN (19:30)
[2019-10-10 22:57] VITALS: BP 134/71
[2019-10-11 03:02] VITALS: BP 144/86
[2019-10-11 04:55] LABS: CALCIUM 8.7 mg/dL (8.5-10.1); CREATININE 0.7 mg/dL (0.7-1.3); GFR 120.4; POTASSIUM 3.7 mmol/L (3.5-5.1)
[2019-10-11 07:00] VITALS: BP 162/79
[2019-10-11] MEDS: VANCOMYCIN 2 GM in IV NORMAL SALINE 500ML BAG 500 ML IV SCH (09:17)
[2019-10-11] MEDS: DOXYCYCLINE HYCLATE 100 MG TABLET PO SCH (09:18)
[2019-10-11] MEDS: LACTOBACILLUS RHAMNOSUS GG 1 CAPSULE. PO SCH (09:18)
[2019-10-11] MEDS: predniSONE 20 MG TABLET PO SCH (09:18)
--- NOTE | 2019-10-11 09:28 | PDOC ---
PULMONARY PROGRESS NOTES Subjective Feels about the same Vitals Vital Signs Date Time Temp Pulse Resp B/P (MAP) Pulse Ox O2 Delivery O2 Flow Rate FiO2 10/11/19 07:00 97.9 74 18 162/79 (106) 92 Nasal Cannula 2.0 97.9 ROS: No Nausea, No Chest Pain, No Abdominal Pain General: Alert, No acute distress Lungs: Wheezing, Other Cardiovascular: S1 Abdomen: Soft, Non-tender, Other Neuro Exam: Alert Extremities: No Edema Skin: Warm Labs Laboratory Tests Test 10/10/19 08:50 10/11/19 03:45 White Blood Count 15.3 x10^3/uL (4.0-11.0) Red Blood Count 4.14 x10^6/uL (4.30-5.70) Hemoglobin 12.7 g/dL (13.0-17.5) Hematocrit 38.6 % (39.0-53.0) Mean Corpuscular Volume 93 fL (79-100) Mean Corpuscular Hemoglobin 31 pg (25-35) Mean Corpuscular Hemoglobin Concent 33 g/dL (31-37) Red Cell Distribution Width 13.5 % (11.5-14.5) Platelet Count 262 x10^3/uL (140-400) Neutrophils (%) (Auto) 81 % (31-73) Lymphocytes (%) (Auto) 13 % (24-48) Monocytes (%) (Auto) 5 % (0-9) Eosinophils (%) (Auto) 1 % (0-3) Basophils (%) (Auto) 0 % (0-3) Neutrophils # (Auto) 12.3 x10^3/uL (1.8-7.7) Lymphocytes # (Auto) 2.0 x10^3/uL (1.0-4.8) Monocytes # (Auto) 0.8 x10^3/uL (0.0-1.1) Eosinophils # (Auto) 0.1 x10^3/uL (0.0-0.7) Basophils # (Auto) 0.1 x10^3/uL (0.0-0.2) Sodium Level 144 mmol/L (136-145) 143 mmol/L (136-145) Potassium Level 4.0 mmol/L (3.5-5.1) 3.7 mmol/L (3.5-5.1) Chloride Level 103 mmol/L (98-107) 103 mmol/L (98-107) Carbon Dioxide Level 34 mmol/L (21-32) 35 mmol/L (21-32) Anion Gap 7 (6-14) 5 (6-14) Blood Urea Nitrogen 8 mg/dL (8-26) 10 mg/dL (8-26) Creatinine 0.6 mg/dL (0.7-1.3) 0.7 mg/dL (0.7-1.3) Estimated GFR (Cockcroft-Gault) 143.8 120.4 Glucose Level 143 mg/dL (70-99) 110 mg/dL (70-99) Calcium Level 8.8 mg/dL (8.5-10.1) 8.7 mg/dL (8.5-10.1) Phosphorus Level 2.4 mg/dL (2.6-4.7) Magnesium Level 2.1 mg/dL (1.8-2.4) Vancomycin Level Trough 9.7 mcg/mL (10.0-20.0) Vancomycin Last Dose Date 10/09/19 Vancomycin Last Dose Time 2100 Laboratory Tests Test 10/11/19 03:45 Sodium Level 143 mmol/L (136-145) Potassium Level 3.7 mmol/L (3.5-5.1) Chloride Level 103 mmol/L (98-107) Carbon Dioxide Level 35 mmol/L (21-32) Anion Gap 5 (6-14) Blood Urea Nitrogen 10 mg/dL (8-26) Creatinine 0.7 mg/dL (0.7-1.3) Estimated GFR (Cockcroft-Gault) 120.4 Glucose Level 110 mg/dL (70-99) Calcium Level 8.7 mg/dL (8.5-10.1) Medications Active Scripts Medications Dose Route/Sig Max Daily Dose Days Date Category Amlodipine Besylate 10 Mg Tablet 10 Mg PO DAILY 09/30/19 Reported Ventolin Hfa Inhaler (Albuterol Sulfate) 18 Gm Hfa.aer.ad 2 Puff INH QID PRN 09/30/19 Reported Impression . IMPRESSION: 1. Acute exacerbation of chronic obstructive pulmonary disease. 2. Tobacco dependence. 3. Lower extremity cellulitis. 4. Morbid obesity. 5. Fever. 6. SARS-CoV-2 negative Plan . Discussed with Dr. Nathaniel black to discharge, on oral antibiotics prednisone taper JACLYN CHEW MD Oct 11, 2019 09:28
[2019-10-11] MEDS: VANCOMYCIN PER PHARMACY MC PRN (11:05)
[2019-10-11 11:37] VITALS: BP 188/91
[2019-10-11] MEDS ORDERED: PRED20TA PO ×2 (11:57→15:54)
[2019-10-11] MEDS ORDERED: DOXY100T PO ×2 (11:57→15:54)
--- NOTE | 2019-10-11 11:59 | DISCH ---
DISCHARGE INSTRUCTIONS Condition on Discharge Condition on Discharge: Stable Activity After Discharge Activity Instructions for Disc: Activity as tolerated Weight Bearing Status after Di: As tolerated Diet after Discharge Diet after Discharge: Regular Checks after Discharge Checks after discharge: Check blood press - daily, Check your Temp as needed, Weigh Yourself Daily Follow-Up Follow up with: Follow-up with pulmonary for management for your COPD LISA SAL MD Oct 11, 2019 11:59
[2019-10-11 12:12] VITALS: BP 169/85
--- NOTE | 2019-10-11 13:09 | DISCH ---
DISCHARGE INSTRUCTIONS Condition on Discharge Condition on Discharge: Stable Activity After Discharge Activity Instructions for Disc: Activity as tolerated Weight Bearing Status after Di: As tolerated Diet after Discharge Diet after Discharge: Regular Checks after Discharge Checks after discharge: Check blood press - daily, Check your Temp as needed, Weigh Yourself Daily Contacting the [facility] after DC Call your doctor for: If your condition worsens Follow-Up Follow up with: Follow-up with pulmonary for management for your COPD Follow Up With: Please follow-up with her PCP Treatment/Equipment after DC Discharge Respiratory Equipmen: Oxygen (You will need to discuss with her PCP for necessary home O2 therapy) LISA SAL MD Oct 11, 2019 13:09
--- NOTE | 2019-10-11 13:33 | NUR ---
SW following. Reviewed chart and spoke with RN and CM. Coordinated care with Dr. Armstrong. Pt is homeless. SW familiar with this pt from previous admission. Pt stated he was staying in a hotel but ran out of money and is currently unemployed. Pt on 02 and stated he can't afford to pay for 02 [id number] at $165 per month. Pt hoping to get a hold of his friend in [place] to see if he can stay with him. SW called Josesito Cam, from [employer] [facility] to see if he can assist pt with housing and 02 needs. Josesito Cam to come evaluate pt.
[2019-10-11 15:00] VITALS: BP 171/84
--- NOTE | 2019-10-11 16:30 | NUR ---
Discharge Note: RICKY LOPEZ [address] [place] [address] Discharge instructions and discharge home medications reviewed with Patient and a copy given. All questions have been answered and understanding verbalized. The following instructions and handouts were given: f/u with PCP Discontinued lines and drains: Peripheral IV intact. Patient discharged to Home or Self Care with Self via Wheelchair
--- NOTE | 2019-10-11 17:17 | PDOC3 ---
[facility]-Dis[facility] Summary Date of Admission: Date of Admission: Oct 08, 2019 Date of Discharge: Date of Discharge: Oct 11, 2019 Admission Diagnosis: Admitting Diagnosis: Acute COPD exacerbation Acute hypoxic respiratory distress Normocytic anemia Acute electrolyte derangements improved Morbid obesity Tobacco abuse Discharge Diagnosis: Discharge Diagnosis: Acute COPD exacerbation Acute hypoxic respiratory distress Normocytic anemia Acute electrolyte derangements improved Morbid obesity Tobacco abuse Consults: Consults: PulmonaryDr. Cohen Hospital Course: Hospital Course: 49-year-old male with history of COPD, hypertension, and [place] presents with shortness of breath and productive cough and lower extremity that started last night. Patient states that he had a fever of 101.0 oral temp at home and took 1000 mg of Tylenol 2 hours prior to arrival to the ER. Patient states that he was recently discharged on 29 September after a COPD exacerbation and bilateral lower extremity cellulitis. Patient states that he does have report of new production of yellowish-green sputum. In the emergency department patient had a air saturation of 88% and he was subsequently placed on 4 L nasal cannula and titrated down to 1 L nasal cannula and is currently saturating at 99%. Patient was admitted for further care. He was evaluated by pulmonary and he was kept on high dose steroids and antibiotics. Patient had mild improvement but which seems to be close to his baseline as he has underlying COPD. Patient will need to be evaluated as an outpatient by pulmonary for long-acting bronchodilators or inhaled corticosteroids for chronic management treatment for his COPD. Patient was able to tolerate 2 L of nasal cannula oxygen and saturating at 94%. A 6- minute walk test was completed during his hospital course he desaturated to 87% on room air. Patient will need O2 home therapy and this will need to be brought up by the patient to his PCP for approval. Patient will be sent home with 5-day course of prednisone and 5 days of doxycycline. The rest of the's hospital course was uneventful Disposition: Disposition/Orders: D/C to Home Activity: Activity: Resume previous activity Diet: Diet: Regular Medications: Home Meds Active Scripts Prednisone (PREDNISONE) 20 Mg Tablet, 40 MG PO DAILY for copd exac for 5 Days, #10 TAB Prov:LISA SAL MD 10/11/19 Doxycycline Hyclate (DOXYCYCLINE HYCLATE) 100 Mg Tablet, 100 MG PO BID for copd exacerbation for 5 Days, #10 TAB Prov:LISA SAL MD 10/11/19 Reported Medications Amlodipine Besylate (AMLODIPINE BESYLATE) 10 Mg Tablet, 10 MG PO DAILY for hypertension, TAB 09/30/19 Albuterol Sulfate (VENTOLIN HFA INHALER) 18 Gm Hfa.aer.ad, 2 PUFF INH QID PRN for SHORTNESS OF BREATH, INHALER 0 Refills 09/30/19 Discontinued Reported Medications Prednisone (PREDNISONE ) 10 Mg Tablet, 1 TAB PO DAILY for steroid for 5 Days, #5 TAB 0 Refills 09/30/19 Scheduled Amlodipine Besylate (Amlodipine Besylate), 10 MG PO DAILY, (Reported) Doxycycline Hyclate (Doxycycline Hyclate), 100 MG PO BID Prednisone (Prednisone), 40 MG PO DAILY Scheduled PRN Albuterol Sulfate (Ventolin Hfa Inhaler), 2 PUFF INH QID PRN for SHORTNESS OF B REATH, (Reported) Discontinued Medications Prednisone (Prednisone ), 1 TAB PO DAILY, (Reported) Total Time: Total Time: Time spent was greater than 35 minutes Justicifation of Admission Dx: Justifications for Admission: Justification of Admission Dx: Yes Cellulitis: Cellulitis Acute COPD Exacerbation: Acute COPD Exacerbation LISA SAL MD Oct 11, 2019 17:16
== END 2019-10-11 16:30 | disposition home or self-care (01) | DRG 191 ==
LOC: ER 14:26 → ED HOLD 17:20 → 6 SOUTH 19:14
PROVIDERS: ADMIT Preventive Medicine Public Health & General Preventive Medicine; ATTEND Preventive Medicine Public Health & General Preventive Medicine
DX: J43.9 Emphysema, unspecified (principal); L03.119 Cellulitis of unspecified part of limb; Z68.41 Body mass index [BMI] 40.0-44.9, adult; R06.03 Acute respiratory distress; D64.9 Anemia, unspecified; E66.01 Morbid (severe) obesity due to excess calories; F17.210 Nicotine dependence, cigarettes, uncomplicated; I10 Essential (primary) hypertension; I25.2 Old myocardial infarction; R09.02 Hypoxemia; Z20.828 Contact with and (suspected) exposure to other viral communicable diseases; Z86.73 Personal history of transient ischemic attack (TIA), and cerebral infarction without residual deficits; Z90.49 Acquired absence of other specified parts of digestive tract
CPT/HCPCS: 36415; 36600; 71045; 80048; 80053; 80202; 81001; 82553; 82805; 83735; 83880; 84100; 84484; 85007; 85025; 87040; 94618; 94640; 96365; 96375; J2930; J3010; J3370; J3480; J7040; J7512; 99285-25; G0378; J7613; U0003-CS